=== PATIENT | female | born 1965 | race Caucasian/White ===

== ENCOUNTER 2021-03-03 15:37 | Emergency (ER) | payer BC, SELFPAY ==
[2021-03-03 15:46] VITALS: BP 119/80; PULSE 117; PULSE 80; RESP 16; TEMP 36.3; O2SAT 95; O2SAT 98; BMI 26.6
[2021-03-03 16:25] VITALS: RESP 16
[2021-03-03] MEDS: Haloperidol Lactate 5 MG/ML VIAL IM (16:25)
[2021-03-03] MEDS: LORazepam 2 MG/ML VIAL IM (16:25)
--- NOTE | 2021-03-03 16:40 | ED_ITS ---
HPI - Alcohol General Chief Complaint: ETOH/Substance Use Stated Complaint: ETOH Time Seen by Provider: 03/03/21 16:18 Source: patient Mode of arrival: EMS History of Present Illness HPI narrative: Patient in ETOH intoxicated found her in her driveway shouting making suicidal very agitated when she came in the ER was given Haldol 5 mg and 2 mg Ativan for agitation Related Data Allergies Allergy/AdvReac Type Severity Reaction Status Date / Time ibuprofen Allergy Unknown hives Verified 11/26/19 00:00 latex [Latex] Allergy Unknown RASH Unverified 06/17/20 15:01 naproxen [From Naprosyn] Allergy Unknown HIVES Unverified 06/17/20 15:01 Seafood Allergy Severe CALAMARI-AN Uncoded 06/17/20 15:01 APHYLAXIS Review of Systems Review of Systems: Yes Unobtainable due to mental condition (Intoxicated) [facility] Social History Social History Alcohol intake: current Patient Tobacco Use Status: Tobacco use Unknown Use of substances other than those prescribed or required for medical reasons: Unknown Advance Directives: No Advance Directives Information Provided: Yes Patient : No Physical Exam Vital Signs: Vital Signs: Last Vital Signs Temp 97.4 F 03/03/21 17:25 Pulse 98 03/03/21 17:25 Resp 18 03/03/21 18:44 BP 135/66 03/03/21 17:25 Pulse Ox 92 03/03/21 17:25 Body Mass Index 26.6 Appearance: Alert. Oriented X3. No acute distress. ETOH++ very agitated when arrived Eyes: PERRLA, No Nystagmus ENT: Pharynx normal. Oral Mucosa moist Neck: Normal inspection. Neck supple. CVS: Normal heart rate and rhythm. Pulses normal. Respiratory: No respiratory distress. Equal air entry bilateral, no wheezing/rales/rhonchi Abdomen: Soft and nontender. Bowel sounds are present, no mass palpable, no CVA tenderness Skin: Skin warm and dry. Normal skin color. Normal skin turgor. Extremities: No lower extremity edema. No calf tenderness Neuro: Oriented X 3. No motor deficit. No sensory deficit.No cerebellar signs , cranial nerves II-XII intact MDM - Alcohol MDM Narrative Medical decision making narrative: 0100: Pain alert awake denies any suicidal ideation or depression will be evaluated in the morning by care team Differential Diagnosis Differential diagnosis: Likely alcohol dependence Lab Data Attestation: I reviewed the patient's lab results. Result diagrams: 03/03/21 18:28 03/03/21 18:28 Labs: Lab Results 03/03/21 03/03/21 03/03/21 Range/Units 18:28 18:28 18:28 WBC 5.6 (4.8-10.8) X10*3/uL RBC 4.08 L (4.20-5.50) X10*6/uL Hgb 13.8 (12.0-16.0) g/dl Hct 41.0 (37-47) % MCV 100.5 H (80-98) fL MCH 33.8 H (27.0-33.0) pg MCHC 33.7 (31.0-35.0) g/dl RDW 13.8 (11.0-16.0) % Plt Count 220 (160-400) X10*3/uL MPV 8.8 L (9.4-12.3) fL Immature Gran % (Auto) 0.2 (0.0-0.4) % Neut % (Auto) 59.4 (45-73) % Lymph % (Auto) 30.8 (20-40) % [place] % (Auto) 6.6 (2-11) % Eos % (Auto) 1.6 (0-4) % Baso % (Auto) 1.4 (0-2) % Lymph # (Auto) 1.7 (1.2-4.9) X10*3/uL [place] # (Auto) 0.4 (0.1-1.2) X10*3/uL Eos # (Auto) 0.1 (0.0-0.4) X10*3/uL Baso # (Auto) 0.1 (0.0-0.2) X10*3/uL Abs Immat Gran (auto) 0.01 (0.00-0.03) X10*3/uL Absolute Neuts (auto) 3.3 (2.0-8.3) X10*3/uL Absolute Nucleated RBC 0.000 (0.0-0.012) X10*3/uL Nucleated RBC % (auto) 0.0 (0.0-0.2) /100WBC Sodium 149 H (135-145) mmol/L Potassium 3.9 (3.3-5.1) mmol/L Chloride 110 H (96-108) mmol/L Carbon Dioxide 24 (22-29) mmol/L Anion Gap 19 (12-20) BUN 10 (9-16) mg/dL Creatinine 0.60 (0.5-1.4) mg/dL Estim Creat Clear Calc 108.2 Estimated GFR > 60 Random Glucose 103 (60-115) mg/dL Calcium 8.7 (8.4-10.2) mg/dL Magnesium 2.2 (1.6-2.6) mg/dL Total Bilirubin 0.4 (0.0-1.0) mg/dL Direct Bilirubin 0.2 (0.0-0.5) mg/dL AST 123 H (5-31) U/L ALT 133 H (0-31) U/L Alkaline Phosphatase 85 (39-117) U/L Total Protein 7.0 (6.5-8.0) g/dL Albumin 4.4 (3.5-5.0) g/dL Ethyl Alcohol 387 H* mg/dL Discharge Plan Discharge Clinical Impression: Alcoholic intoxication Qualifiers: Complication of substance-induced condition: uncomplicated Qualified Code(s): F10.920 - Alcohol use, unspecified with intoxication, uncomplicated Depression Qualifiers: Depression Type: major depressive disorder Major depression recurrence: recurrent Active/Remission status: currently active Major depression episode severity: moderate Qualified Code(s): F33.1 - Major depressive disorder, recurrent, moderate
[2021-03-03 16:55] VITALS: BP 152/72; PULSE 104; RESP 14; TEMP 36.6; O2SAT 92
[2021-03-03 17:10] VITALS: BP 149/72; PULSE 106; RESP 20; TEMP 36.4; O2SAT 93
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
[2021-03-03 17:25] VITALS: BP 135/66; PULSE 98; RESP 16; TEMP 36.3; O2SAT 92
[2021-03-03 18:32] LABS: MANUAL DIFF FLAG NO
[2021-03-03 18:33] LABS: Basophils Absolute Auto 0.1 X10*3/uL (0.0-0.2); Basophils Percent Auto 1.4 % (0-2); Eosinophils Absolute Auto 0.1 X10*3/uL (0.0-0.4); Eosinophils Percent Auto 1.6 % (0-4); Hemoglobin 13.8 g/dl (12.0-16.0); Imm Gran Abs Auto 0.01 X10*3/uL (0.00-0.03); Imm Gran Pct Auto 0.2 % (0.0-0.4); Lymphocytes Absolute Auto 1.7 X10*3/uL (1.2-4.9); Lymphocytes Percent Auto 30.8 % (20-40); Mean Corpuscular HGB Conc 33.7 g/dl (31.0-35.0); Mean Corpuscular Hemoglobin 33.8 pg (27.0-33.0); Mean Corpuscular Volume 100.5 fL (80-98); Mean Platelet Volume 8.8 fL (9.4-12.3); Monocytes Absolute Auto 0.4 X10*3/uL (0.1-1.2); Monocytes Percent Auto 6.6 % (2-11); Neutrophils Absolute Auto 3.3 X10*3/uL (2.0-8.3); Neutrophils Percent Auto 59.4 % (45-73); Platelet Count 220 X10*3/uL (160-400); Red Blood Count 4.08 X10*6/uL (4.20-5.50); Red Cell Distribution Width 13.8 % (11.0-16.0); White Blood Count 5.6 X10*3/uL (4.8-10.8)
[2021-03-03 18:44] VITALS: RESP 18
[2021-03-03 18:57] LABS: Ethanol 387 mg/dL
[2021-03-03 19:00] LABS: Alanine Aminotransferase 133 U/L (0-31); Albumin Level 4.4 g/dL (3.5-5.0); Alkaline Phosphatase 85 U/L (39-117); Anion Gap 19 (12-20); Aspartate Amino Transferase 123 U/L (5-31); Bilirubin Direct 0.2 mg/dL (0.0-0.5); Bilirubin Total 0.4 mg/dL (0.0-1.0); Blood Urea Nitrogen 10 mg/dL (9-16); Calcium 8.7 mg/dL (8.4-10.2); Carbon Dioxide 24 mmol/L (22-29); Chloride 110 mmol/L (96-108); Creatinine Clr Calc Pharmacy 108.2; Estimated Glomerular Filt Rate > 60; Glucose Random 103 mg/dL (60-115); Magnesium 2.2 mg/dL (1.6-2.6); Potassium 3.9 mmol/L (3.3-5.1); Sodium 149 mmol/L (135-145)
[2021-03-04] VITALS: RESP 18
[2021-03-04 02:00] VITALS: RESP 16
[2021-03-04 03:20] VITALS: BP 121/70; PULSE 102; RESP 16; O2SAT 94
[2021-03-04 04:00] VITALS: RESP 18
[2021-03-04 08:00] VITALS: BP 148/91; PULSE 88; RESP 17; TEMP 36.6; O2SAT 96
--- NOTE | 2021-03-04 08:06 | PC.NURSE ---
pt a/o x 3 no sob/neelima noted skin pink warm dry speaks in full sentences. pt amb (i) gait steady to bathroom and btb. pt appears slightly tremulous and is requesting med for slight tremors. pt ate 25% of breakfast. pt is concerned about what time she will be leaving today because she has a vet coming to see to her 2 horses at 3pm today she states. paper work to be faxed and called to [facility] [place]. pt denies any si/hi at this time.
--- NOTE | 2021-03-04 08:10 | PC.NURSE ---
pt's hawa mayorga ([phone]) called and is speaking with the pt at this time on [facility] [place].
--- NOTE | 2021-03-04 08:31 | PC.NURSE ---
paperwork fax and called to [facility]. this rn spoke with talia (helena).
--- NOTE | 2021-03-04 08:40 | PC.NURSE ---
tiny miner (care team) is at pt's bedside.
[2021-03-04] MEDS: LORazepam 1 MG TABLET 2 MG PO (09:01)
[2021-03-04 09:04] LABS: Amphetamine Screen Urine Not Detected (Not Detect); Barbiturates, Urine Not Detected (Not Detect); Benzodiazepines Screen Urine Not Detected (Not Detect); Cannabinoid Screen Urine Not Detected (Not Detect); Cocaine Screen Urine Not Detected (Not Detect); Opiate Screen Urine Not Detected (Not Detect); Phencyclidine Screen Urine Not Detected (Not Detect)
--- NOTE | 2021-03-04 09:27 | MHC.CARE ---
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 Pt reports long standing history of alcohol use, Pt reports last evening being intoxicated and not remembering passing out on her lawn or what she has said to the PD. Pt reports periods of problematic alcohol use throughout her life. Pt denies history of substance use specific treatment. Pt reports diagnosis of PTSD. Pt reports she is not on any psychiatric. Pt reports history of therapy for many years however in November 2020 her therapist retired. Pt reports she has not reconnected with a new therapist yet. Pt denies current or history of suicidal ideation, suicidal gestures or attempts. Pt denied history of IPLOC, CSS, Respite or detox admissions. Pt reported she is agreeable to a new service recently offered by [facility]. Pt reports having a supportive partner (Nick) of 11 years who she resides with and her son recently moved home. Pt reports spending her time working, exercising, and spending time with her animals. Pt gave t/w verbal permission to speak with Nick who reported he did not have any safety concerns for Pt to return home. He stated Pt has no history of suicidal ideation, suicidal gestures or attempts. He reported her alcohol use can be very problematic and in the context of his worry is if she fell down intoxicated. He reported he has known the Pt for a very long time and she functional alcoholic and typically does not want treatment for alcohol use . CARE Team followed up with [facility] who reported they will have there [facility] liaison reach out to Pt tomorrow once she is home. Pt provided with [facility] Crisis number, CARE Team contact number and information for Hope donna Rothman. Pt, partner and provider in agreement with plan to discharge home and follow up with [facility].
== END 2021-03-04 09:56 | disposition home or self-care (01) ==
PROVIDERS: Emergency Provider Internal Medicine; PCP Internal Medicine
DX: F10.120 Alcohol abuse with intoxication, uncomplicated (principal); Y90.8 Blood alcohol level of 240 mg/100 ml or more; F33.1 Major depressive disorder, recurrent, moderate; R45.1 Restlessness and agitation; F43.10 Post-traumatic stress disorder, unspecified; Z78.1 Physical restraint status
CPT/HCPCS: 36415; 80048; 80076; 80307; 82077; 83735; 85025; 96372; 99285; J2060

== ENCOUNTER 2023-11-20 11:38 | Outpatient (AMB) | payer BC, SELFPAY ==
--- NOTE | 2023-11-20 11:38 | AM.OFFWIN_ITS ---
Intake Vital Signs 11/20/23 11:43 Height 5 ft 7 in Weight 143 lb BMI 22.4 BP 110/70 Blood Pressure Location Lt brachial Position Sitting Pulse 97 Pulse Source Pulse Oximeter Temp 98.0 F Temp Source Temporal Artery Scan Pulse Oximetry (%) 97 Oxygen Delivery Method Room Air Intake Visit Reasons: EP Cough, Headache, fever [phone] Intake Note: pt is here today for cough headache fever started last Sunday Patient Tobacco Use Status: Tobacco use Unknown Allergies ibuprofen Allergy (Unknown, Verified 11/20/23 11:41) hives latex [Latex] Allergy (Unknown, Verified 11/20/23 11:41) RASH naproxen [From Naprosyn] Allergy (Unknown, Verified 11/20/23 11:41) HIVES Seafood Allergy (Severe, Uncoded 06/17/20 15:01) CALAMARI-ANAPHYLAXIS Medication List - Last Reconciled 11/20/23 by LORENZO Knapp No Known Home Meds Do you need a note to return to daycare/school/sports/work: Yes HPI HPI Comments History of Present Illness Details 58-year-old female presents today compla ining of vomiting times 2 days starting 5 days ago. Then progressed to nasal congestion sore throat ear fullness and mild cough. 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 [facility] Social History Alcohol intake: current Patient Tobacco Use Status: Tobacco use Unknown Review of Systems Const Reports body aches, Reports chills, Reports fatigue, Reports fever(s), Reports headache(s) and Reports weakness ENT Reports headache(s), Reports nasal congestion, Reports nasal discharge, Reports sinus pain, Reports sinus pressure and Reports sore throat Resp Reports chest congestion and Reports cough GI Reports nausea and Reports vomiting Musc Reports myalgias Neuro Reports headache(s) and Reports weakness Endo Reports fatigue Physical Exam Const General: in distress mild HEENT Head: Yes normal to inspection, Yes normocephalic and Yes atraumatic Ears: hearing grossly normal bilaterally, external ears normal and TM's normal bilaterally General nose exam: Normal external nose present Face and sinus: Yes normal facial exam Mouth: Normal oral and palatal mucosa present Teeth and gingiva: dentition normal Throat: Yes posterior oropharynx normal Eyes General: appearance normal, both eyes and all related structures Resp Effort & Inspection: normal respiratory effort Auscultation: clear to auscultation bilaterally Cardio Rate: regular rate Rhythm: regular rhythm Heart sounds: S1 normal heart sound present and S2 normal heart sound present GI Inspection: Yes normal to inspection Palpation (GI): Soft to palpation Auscultation: normal bowel sounds Assessment & Plan Assessment & Plan (1) Vomiting: Code(s): R11.10 - Vomiting, unspecified Plan: Most likely the patient has influenza. I sent the viral culture. It did discuss the timing of Tamiflu and or Paxlovid might be a little too late due to the 5 days of symptoms. She will get some electrolyte drinks to supplement with her hydration. She did receive a work note. Plan See plan Orders: Orders SARS-CoV2/FLU/RSV Today R11.10 - Vomiting, unspecified Coding Level of Care Code Est Pt Level 3 (93555) Diagnoses Vomiting R11.10 Time Spent (min) 20
[2023-11-20 11:43] VITALS: BP 110/70; PULSE 97; TEMP 36.7; O2SAT 97; BMI 22.4
== END 2023-11-20 12:30 | disposition home or self-care (01) ==
PROVIDERS: PCP Internal Medicine; Visit Provider Physician Assistant Medical
DX: R11.10 Vomiting, unspecified (principal)
CPT/HCPCS: 99213

== ENCOUNTER 2023-11-20 14:59 | Outpatient (REF) | payer BC, SELFPAY ==
[2023-11-20 15:59] LABS: Influenza A PCR NEGATIVE (Negative); Influenza B PCR NEGATIVE (Negative); Resp Syncy Virus RNA Qual PCR NEGATIVE (Negative); SARS COV2 PCR INHOUSE NEGATIVE (Negative)
== END 2023-11-20 15:00 | disposition home or self-care (01) ==
LOC: HO.LNP 14:59
PROVIDERS: Visit Provider Physician Assistant Medical
DX: Z11.52 Encounter for screening for COVID-19 (principal); Z20.822 Contact with and (suspected) exposure to COVID-19; R11.10 Vomiting, unspecified
CPT/HCPCS: 0241U

== ENCOUNTER 2023-11-22 14:57 | Emergency (ER) | payer BC, SELFPAY ==
--- NOTE | 2023-11-22 15:50 | PC.NURSE ---
registration states that patient left b/c she was having anxiety. might be in the car.
== END 2023-11-22 17:03 | disposition left against medical advice (07) ==
PROVIDERS: Emergency Provider Emergency Medicine
DX: Z53.21 Procedure and treatment not carried out due to patient leaving prior to being seen by health care provider (principal); M25.512 Pain in left shoulder

== ENCOUNTER 2023-11-23 14:51 | Emergency (ER) | payer BC, SELFPAY ==
--- NOTE | ~2023-11-23 | CT_ITS ---
EXAMINATION: CT CHEST WITH CONTRAST CLINICAL INFORMATION: Mass over left shoulder blade. History of breast cancer. COMPARISON: None available. TECHNIQUE: Multidetector volumetric CT imaging of the chest was obtained after the administration of 80 mL of Omnipaque 350 intravenous contrast without immediate adverse reactions. Axial MIP volume rendering provided. Sagittal and coronal reformatted images were obtained. This CT examination was performed using dose optimization techniques as appropriate, variously including the following: *Automated exposure control *Adjustment of mA and/or kV according to patient size (this includes techniques or standardized protocols for targeted exams where dose is matched to indication/reason for exam; i.e. extremities or head) *Use of iterative reconstruction technique DLP: 230 mGy-cm FINDINGS: FINANCIAL PLANNER: LUNGS: Right apical pleural parenchymal scarring Increased peripheral markings and scarring anterior right upper lobe. These findings are probably related to previous chest wall radiation. Lungs are otherwise clear. MEDIASTINUM: Large 2 x 2 x 3.5 cm right thyroid nodule. Normal no coronary artery calcification. PLEURA: There is no pleural effusion. No pleural mass or thickening. AXILLA: I lateral breast implants. Surgical clips right axilla. No chest wall mass or enlarged axillary lymph nodes. UPPER ABDOMEN: Fatty liver. OSSEOUS STRUCTURES: There is a lipoma measuring 2.5 x 3 cm over the posterior chest just medial to the scapula. There is a 1.5 cm lesion right L1 body. No other bone lesion. CT/CT chest w IV con IMPRESSION: 2 x 3.5 cm left posterior chest lipoma just medial to the left scapula. No other left shoulder mass. 1.5 cm lucent lesion in the right L1 vertebral body. This could represent a benign hemangioma. Comparison with old outside exams recommended. Large right thyroid nodule measuring 2 x 2 x 3.5 cm. Follow-up thyroid ultrasound recommended if this has not already been done. Fleischner guidelines were followed.
--- NOTE | 2023-11-23 15:37 | ED_ITS ---
HPI - General Adult General Chief complaint: Extremity Problem Stated complaint: L Shoulder Lump Pain No Injury Time Seen by Provider: 11/23/23 19:21 Source: patient, RN notes reviewed and old records reviewed Mode of arrival: ambulatory Limitations: no limitations History of Present Illness HPI narrative: 58-year-old female with past medical history significant for remote history of breast cancer with BRCA 2 mutation presents for evaluation of a lump on the left upper back. Patient noticed the area a few weeks ago. She states that it is next to her shoulder blade. The pain is worse with anything that touches the area. She tried to follow-up with her outpatient oncologist at [facility] She also reports a mass to the right side of her neck Patient reports general weakness and night sweats No other complaints or concerns at this time Related Data Home Medications Medication Instructions Recorded Confirmed No Known Home Meds 11/20/23 11/20/23 Allergies Allergy/AdvReac Type Severity Reaction Status Date / Time ibuprofen Allergy Unknown hives Verified 11/20/23 11:41 latex [Latex] Allergy Unknown RASH Verified 11/20/23 11:41 naproxen [From Naprosyn] Allergy Unknown HIVES Verified 11/20/23 11:41 Seafood Allergy Severe CALAMARI-AN Uncoded 06/17/20 15:01 APHYLAXIS Review of Systems 2 Constitutional: Constitutional: Denies body ache(s), Denies chills, Reports fatigue and Denies fever(s) Eyes: Eyes: Denies blurry vision ENT: Reports neck pain Cardiovascular: Cardiovascular: Denies chest pain and Denies dyspnea Respiratory: Respiratory: Denies cough and Denies dyspnea Gastrointestinal: Gastrointestinal: Denies abdominal pain, Denies nausea and Denies vomiting Musculoskeletal: Musculoskeletal: Denies back pain and Reports neck pain Integumentary/Breasts: Comments: Mass to left upper back and right neck Endocrine: Endocrine: Reports fatigue PMFSH Social History Social History Alcohol intake: current Patient Tobacco Use Status: Tobacco use Unknown Advance Directives: No Advance Directives Information Provided: No Physical Exam ED Vital Signs: Vital Signs - 24 hr 11/23/23 15:39 11/23/23 19:22 Temperature 98.7 F 97.8 F Pulse Rate 101 H 94 Respiratory Rate 17 16 Blood Pressure 144/98 H 147/108 H Pulse Oximetry 95 97 Oxygen Delivery Method Room Air Room Air BMI result Body Mass Index 21.9 Const General: healthy appearing, comfortable, no acute distress, alert and awake Nutritional Appearance: well nourished Orientation/consciousness: patient oriented x3 HENMT Head: Yes normocephalic and Yes atraumatic Eyes Eyelids: Yes eyelids normal Conjunctivae: conjunctivae normal Sclerae: sclerae normal Corneas: corneas normal Pupils: Equal, round and reactive pupils present EOM: EOMs intact bilaterally Neck Other: There is a 2 x 2 cm firm, nonmobile mass to the right side of the anterior neck adjacent to the area of the thyroid. No surrounding skin changes such as ecchymosis, erythema or color change. This area is nontender Resp Effort & Inspection: normal respiratory effort, able to speak in complete sentences and not labored Skin Other: Has a 3 x 3 cm nonmobile mass of the left thoracic region just medial to the inferior border of the scapula. Again, no overlying skin changes General skin exam: elasticity normal Neuro General: patient oriented x3 Cranial nerves: Yes Equal, round and reactive pupils present and Yes Bilaterally intact EOM present Cognition (Neuro): normal cognition Extrem Other: Moving all extremities well without any obvious deformities Course Course Course Narrative: RME:?58 yo female w/ pmhx significant for breast cancer in remission presents to the ED for evaluation of mass to left shoulder blade x weeks. Her oncologist at [facility] advised her to come to ED for imaging d/t concern of mets. her PCP has been unable to see her. Additionally she endorses feeling feverish, has had night sweats and decreased appetite. Denies unintentional weight loss. 4 cm mass to left shoulder blade. ttp. considered US however given concern for mets from oncologist, will order CTA labs, imaging ordered Full HPI, ROS and PE to be performed by the primary ED provider. Medications Administered Discontinued Medications Generic Name Dose Route Start Last Admin Trade Name Freq PRN Reason Stop Dose Admin Iohexol 100 ml 11/23/23 19:29 11/23/23 19:30 Iohexol 350 Mg/Ml 100 Ml Infus..Btl IV 11/23/23 19:30 100 ml ONCE ONE Administration Medical Decision Making Medical Decision Making [facility] Narrative: 58-year-old female presents for evaluation of a mass to her left upper back and right neck. She reports a history of a known right thyroid nodule that was followed by ultrasound previously. The patient is very anxious about her diagnosis given her history of cancer. I had a lengthy discussion the patient attempting to get her to stay in the ER but she continues to request to leave against medical advice. The patient understands that her scan could potentially reveal malignancy/metastasis requiring urgent follow-up. She was provided with a disc of her images to bring to her outpatient follow-up appointment with Oncology. The patient's lower without any significant abnormalities. Clinically her left upper back mass is most likely a benign seroma or lipoma. Differential Diagnosis Differential Diagnoses: The differential diagnosis associated with the presentation includes Soft tissue mass Malignancy Tumor Abscess Lipoma Seroma Thyroid nodule Lab Data MDM Lab Attestation statement: I reviewed the patient's lab results. No leukocytosis or anemia. No significant electrolyte abnormalities. 11/23/23 15:58 11/23/23 15:58 Labs: Lab Results 11/23/23 Range/Units 15:58 WBC 8.0 (4.8-10.8) X10*3/uL RBC 4.25 (4.20-5.50) X10*6/uL Hgb 13.9 (12.0-16.0) g/dl Hct 40.2 (37.0-47.0) % MCV 94.6 (80.0-98.0) fL MCH 32.7 (27.0-33.0) pg MCHC 34.6 (31.0-35.0) g/dl RDW 12.8 (11.0-16.0) % Plt Count 196 (160-400) X10*3/uL MPV 9.1 L (9.4-12.3) fL Immature Gran % (Auto) 0.4 (0.0-0.4) % Neut % (Auto) 47.5 (45-73) % Lymph % (Auto) 39.6 (20-40) % [place] % (Auto) 10.0 (2-11) % Eos % (Auto) 1.9 (0-4) % Baso % (Auto) 0.6 (0-2) % Lymph # (Auto) 3.2 (1.2-4.9) X10*3/uL [place] # (Auto) 0.8 (0.1-1.2) X10*3/uL Eos # (Auto) 0.2 (0.0-0.4) X10*3/uL Baso # (Auto) 0.1 (0.0-0.2) X10*3/uL Abs Immat Gran (auto) 0.03 (0.00-0.03) X10*3/uL Absolute Neuts (auto) 3.8 (2.0-8.3) x10*3/uL Absolute Nucleated RBC 0.000 (0.0-0.012) X10*3/uL Nucleated RBC % (auto) 0.0 (0.0-0.2) /100WBC Sodium 142 (135-145) mmol/L Potassium 3.8 (3.3-5.1) mmol/L Chloride 105 (96-108) mmol/L Carbon Dioxide 26 (22-29) mmol/L Anion Gap 15 (12-20) BUN 9 (9-16) mg/dL Creatinine 0.66 (0.5-1.4) mg/dL Estim Creat Clear Calc 92.5 Estimated GFR > 60 Random Glucose 110 (60-115) mg/dL Calcium 9.1 (8.4-10.2) mg/dL Magnesium 1.9 (1.6-2.6) mg/dL Influenza Type A (PCR) NEGATIVE (Negative) Influenza Type B (PCR) NEGATIVE (Negative) RSV RNA Qual (PCR) NEGATIVE (Negative) SARS-CoV-2 RNA (RT-PCR) NEGATIVE (Negative) Radiology Impression Discussion of test interpretation with radiology: I have reviewed the radiologist's reading. (Left thoracic lipoma, right thyroid nodule, vertebral lesion noted.) Discharge Plan Discharge Clinical Impression: Mass of soft tissue Patient Disposition: Left Against Medical Advice Instructions: Soft Tissue Mass (ED) Additional Instructions: You are leaving before your CT scan reports are red. Given your history of cancer this can be concerning for reoccurrence It may just be a simple cyst Return immediately if any new or worsening symptoms Follow-up with your oncologist Prescriptions: No Action No Known Home Meds Stand Alone Forms: Against Medical Advice, Work/School Release Interventions: ED Discharge Assessment Last Done: 11/23/23 19:45 Discharge Date/Time: 11/23/23 20:23
[2023-11-23 15:39] VITALS: BP 144/98; PULSE 101; RESP 17; TEMP 37.1; O2SAT 95; BMI 21.9
[2023-11-23 16:10] LABS: MANUAL DIFF FLAG NO
[2023-11-23 16:12] LABS: Basophils Absolute Auto 0.1 X10*3/uL (0.0-0.2); Basophils Percent Auto 0.6 % (0-2); Eosinophils Absolute Auto 0.2 X10*3/uL (0.0-0.4); Eosinophils Percent Auto 1.9 % (0-4); Hematocrit 40.2 % (37.0-47.0); Hemoglobin 13.9 g/dl (12.0-16.0); Imm Gran Abs Auto 0.03 X10*3/uL (0.00-0.03); Imm Gran Pct Auto 0.4 % (0.0-0.4); Lymphocytes Absolute Auto 3.2 X10*3/uL (1.2-4.9); Lymphocytes Percent Auto 39.6 % (20-40); Mean Corpuscular HGB Conc 34.6 g/dl (31.0-35.0); Mean Corpuscular Hemoglobin 32.7 pg (27.0-33.0); Mean Corpuscular Volume 94.6 fL (80.0-98.0); Mean Platelet Volume 9.1 fL (9.4-12.3); Monocytes Absolute Auto 0.8 X10*3/uL (0.1-1.2); Neutrophils Absolute Auto 3.8 x10*3/uL (2.0-8.3); Neutrophils Percent Auto 47.5 % (45-73); Platelet Count 196 X10*3/uL (160-400); Red Blood Count 4.25 X10*6/uL (4.20-5.50); Red Cell Distribution Width 12.8 % (11.0-16.0)
[2023-11-23 16:33] LABS: Anion Gap 15 (12-20); Blood Urea Nitrogen 9 mg/dL (9-16); Calcium 9.1 mg/dL (8.4-10.2); Carbon Dioxide 26 mmol/L (22-29); Chloride 105 mmol/L (96-108); Creatinine Clr Calc Pharmacy 92.5; Estimated Glomerular Filt Rate > 60; Glucose Random 110 mg/dL (60-115); Magnesium 1.9 mg/dL (1.6-2.6); Potassium 3.8 mmol/L (3.3-5.1); Sodium 142 mmol/L (135-145)
[2023-11-23 16:47] LABS: Influenza A PCR NEGATIVE (Negative); Influenza B PCR NEGATIVE (Negative); Resp Syncy Virus RNA Qual PCR NEGATIVE (Negative); SARS COV2 PCR INHOUSE NEGATIVE (Negative)
[2023-11-23 19:22] VITALS: BP 147/108; PULSE 94; RESP 16; TEMP 36.6; O2SAT 97
--- NOTE | 2023-11-23 19:24 | PC.NURSE ---
Pt has been struggling to remain in the room. Per was here and left without completing treatment yesterday d/t anxiert. Was willing to have IV placed for CT alone then insisted that it be removed and wants to leave before results are available. Asked to remain and wait for provider.
[2023-11-23] MEDS: iohexoL 350 MG/ML 100 ML INFUS..BTL IV (19:30)
== END 2023-11-23 20:23 | disposition left against medical advice (07) ==
PROVIDERS: Physician Assistant Medical; Emergency Provider Emergency Medicine; PCP Internal Medicine
DX: R22.2 Localized swelling, mass and lump, trunk (principal); Z85.3 Personal history of malignant neoplasm of breast; Z11.52 Encounter for screening for COVID-19; Z20.828 Contact with and (suspected) exposure to other viral communicable diseases
CPT/HCPCS: 0241U; 71260; 80048; 83735; 85025; 99283; 99284; Q9967

== ENCOUNTER 2024-02-19 08:11 | Outpatient (REF) | payer BC, SELFPAY | END 2024-02-19 08:12 | disposition home or self-care (01) | LOC: HO.BBR 08:11 | PROVIDERS: Visit Provider Internal Medicine | DX: Z13.89 Encounter for screening for other disorder (principal) ==

== ENCOUNTER 2024-04-10 11:18 | Outpatient (REF) | payer BC, SELFPAY | END 2024-04-10 11:19 | disposition home or self-care (01) | LOC: HO.BBR 11:18 | PROVIDERS: Visit Provider Internal Medicine | DX: Z13.89 Encounter for screening for other disorder (principal) ==

== ENCOUNTER 2024-05-01 10:57 | Outpatient (REF) | payer BC, SELFPAY | END 2024-05-01 10:58 | disposition home or self-care (01) | LOC: HO.BBR 10:57 | PROVIDERS: PCP Internal Medicine; Visit Provider Internal Medicine | DX: Z13.89 Encounter for screening for other disorder (principal) ==

== ENCOUNTER 2024-05-15 15:37 | Outpatient (AMB) | payer BC, SELFPAY ==
--- NOTE | 2024-05-15 15:39 | A.OFFPC_ITS ---
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 Is last menstrual period known: No Post menopausal: No Patient : No Allergies Seasonal Allergies Allergy (Mild, Verified 05/15/24 15:45) Itchy Eyes latex [Latex] Allergy (Unknown, Verified 11/20/23 11:41) RASH naproxen [From Naprosyn] Allergy (Unknown, Verified 11/20/23 11:41) HIVES Tobacco use date assessed: 05/15/24 Dental Screening Dental Screen Date: 05/15/24 Did you have a dental visit in the last 12 months?: Yes Did you have a dental problem in the last 6 months where you did not have access to dental care?: No Was dental information given to patient?: Patient has dentist HPI HPI Comments History of Present Illness Details This is a 59-year-old female with a past medical history of BRCA2 mutation, right breast cancer, thyroid nodule, hemochromatosis, idiopathic anaphylaxis, environmental allergies, endometriosis and vitamin-D deficiency presenting to establish care. BRCA2 mutation, right breast cancer-diagnosed in 2000. Status post right mastectomy. Followed by breast surgeon at [facility]. No known recurrence. Status post bilateral oophorectomy with removal of fallopian tubes. Thyroid nodule of the right lobe- 4.3 cm-biopsied by Dr. Pereira at [facility]. Benign. She has a follow up in 11/20/2024. She had a lipoma removed from the back of her left shoulder. She would like a referral to Dermatology for a skin exam. No personal history of skin cancer. Hemochromatosis is followed by her grinder carbon plant at [facility]. She has therapeutic phlebotomy every 3 weeks. Idiopathic anaphylaxis she has had 2 episodes over the course of her life. She saw an graphic design intern. She takes Kristi for allergy symptoms. She does not have an epinephrine device, and she requests a prescription for Neffy. She endorses depression and anxiety. 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 Predominantly anxieties bothering her. She is having difficulty sleeping. She tried Lexapro in the past which caused fatigue. She took Wellbutrin for depression in the past. It helped. She has used Ativan as needed as well which was effective. She has done a lot of talk therapy, and she is not interested in referral to behavioral health at this time. She has never had a colonoscopy, and she accepts referral for this. Needs referral to OBGYN for an annual exam. ROS: Constitutional: No unexplained weight loss, fever, chills, Respiratory: No shortness of breath Cardiovascular: No chest pain Gastrointestinal: No anorexia, nausea, vomiting or diarrhea. No abdominal pain or blood in stool. Psychiatric: No SI/HI. Physical exam: Constitutional: Alert, in no distress. Head: Normocephalic. Eyes: Pupils are equal, round and reactive to light. Extraocular muscles intact. Neck: Supple, Full range of motion. No lymphadenopathy. Palpable right thyroid nodule. Respiratory: Clear to auscultation. Cardiovascular: S1 S2 regular. No murmurs. Extremities: Warm and well perfused. No clubbing, cyanosis or edema. Psychiatric: Normal mood and affect [facility] Medical History (Updated 05/15/24 @ 17:36 by LORENZO Dimas) Vitamin D deficiency Idiopathic anaphylaxis History of lipoma Hemochromatosis BRCA2 gene mutation positive History of right breast cancer Anxiety and depression Breast cancer Surgical History (Updated 05/15/24 @ 17:27 by LORENZO Dimas) History of History of reconstruction of right breast History of bilateral oophorectomy History of right mastectomy Family History (Updated 05/15/24 @ 16:26 by LORENZO Dimas) Maternal Grandfather FH: mental illness Paternal Grandmother Diabetes Mother Cancer Sister BRCA gene mutation positive Family/Other Thyroid cancer Renal cancer Social History Housing: House Alcohol intake: current Patient Tobacco Use Status: Never used Tobacco e-Cigarette/Vaping Use: Never Used Second Hand Smoke Exposure: No service: No Current occupational status: unemployed Current occupational exposures/hazards: No Cognitive needs: No Hearing needs: No Vision needs: Yes Questionnaire PHQ-9 Over the last 2 weeks, how often have you been bothered by any of the following problems? 1. Little interest or pleasure in doing things: several days 2. Feeling down, depressed, or hopeless: more than half the days 3. Trouble falling or staying asleep, or sleeping too much: nearly every day 4. Feeling tired or having little energy: more than half the days 5. Poor appetite or overeating: more than half the days 6. Feeling bad about yourself - or that you are a failure or have let yourself or your family down: more than half the days 7. Trouble concentrating on things, such as reading the newspaper or watching television: more than half the days 8. Moving or speaking so slowly that other people could have noticed. Or the opposite - being so fidgety or restless that you have been moving around a lot more than usual: not at all 9. Thoughts that you would be better off or of hurting yourself in some way: not at all Total score: 14 Depression Screening Interpretation: Positive Depression Screening Follow-up: New Medication prescribed Depression Screening Done: Yes 38514 - PHQ-9 Billing: Yes Source: Developed by Drs. Josef Rivera, Lainey Lala, Josh Zamarripa and colleagues, with an educational esa from [employer]. Thrive Questionnaire Date Thrive assessed: 05/15/24 I am a: Patient What is your living situation today?: I have a steady place to live Within the past 12 months, did the food you bought not last and you didn't have the money to get more?: Never true Within the past 12 months, did you worry whether your food would run out before you got money to buy more?: Never true Do you have trouble paying for medicines?: No Do you have trouble getting transportation to medical appointments?: No Do you have trouble paying your heating and electricity bill?: No Do you have trouble taking care of your child, family member or friend?: No Do you have trouble with day-to-day activities such as bathing, preparing meals, shopping, managing finances, etc.?: No Are you currently unemployed and looking for a job?: Yes Are you interested in more education?: No Please select the resources that you would like help with: None Currently or been in a relationship where the following occur: No concerns reported THRIVE Score: 0 AUDIT C Alcohol Use Questionnaire (AUDIT-C) 1. How often do you have a drink containing alcohol?: Never Total Score: 0 Score Reviewed/Action Taken: Yes STEPHANIE-7 AMB Questionnaire STEPHANIE-7 Date STEPHANIE - 7 assessed: 05/15/24 Feeling nervous, anxious, or on edge: 3 = Nearly every day Not being able to stop or control worryin = Nearly every day Worrying too much about different things: 3 = Nearly every day Trouble relaxin = More than half the days Being so restless that it is hard to sit still: 2 = More than half the days Becoming easily annoyed or irritable: 2 = More than half the days Feeling afraid as if something awful might happen: 3 = Nearly every day Total STEPHANIE-7 score (0-4 normal; 5-9 mild; 10-14 moderate; 15-21 severe): 18 Source: Developed by Drs. Josef Rivera, Lainey Lala, Josh Zamarripa and colleagues, with an educational esa from [employer]. STEPHANIE-7 Assessment Billing STEPHANIE-7 Assessment Tool: STEPHANIE-7 Assessment 49469 Physical exam (Primary Care) Vital Signs: Last Vital Signs Temp 97.6 F 05/15/24 15:50 Pulse 66 05/15/24 15:50 Resp 16 05/15/24 15:50 BP 118/70 05/15/24 15:50 Pulse Ox 99 05/15/24 15:50 Oxygen Delivery Method Room Air 05/15/24 15:50 BMI result Body Mass Index 22.5 Tobacco/Smoking Status: Tobacco use Status Tobacco use date assessed 05/15/24 05/15/24 15:50 Patient Tobacco Use Status Never used Tobacco 05/15/24 15:50 e-Cigarette/Vaping Use Never Used 05/15/24 15:50 PHQ-9: PHQ-9 Score PHQ-9: Total score 14 05/15/24 16:11 Depression Screening Interpretation: Positive Depression Screening Follow-up: New Medication prescribed Thrive Assessment: Date of Thrive Assessment Date Thrive assessed 05/15/24 05/15/24 16:05 Currently or been in a relationship where the following occur: No concerns reported Assessment and Plan Assessment & Plan (1) Anxiety and depression: Code(s): F41.9 - Anxiety disorder, unspecified; F32.A - Depression, unspecified (2) History of right breast cancer: Code(s): Z85.3 - Personal history of malignant neoplasm of breast (3) BRCA2 gene mutation positive: Code(s): Z15.01 - Genetic susceptibility to malignant neoplasm of breast; Z15.09 - Genetic susceptibility to other malignant neoplasm (4) Hemochromatosis: Code(s): E83.119 - Hemochromatosis, unspecified Qualifiers: Hemochromatosis type: hereditary Qualified Code(s): E83.110 - Hereditary hemochromatosis (5) Idiopathic anaphylaxis: Code(s): T78.2XXA - Anaphylactic shock, unspecified, initial encounter Qualifiers: Encounter type: subsequent encounter Qualified Code(s): T78.2XXD - Anaphylactic shock, unspecified, subsequent encounter (6) Vitamin D deficiency: Code(s): E55.9 - Vitamin D deficiency, unspecified Plan She will have fasting blood work completed. She will continue routine follow up with her specialists. Refer to dermatology, OBGYN and for colonoscopy. We will need to check to see if the nasal epinephrine device is available yet at the pharmacy since this was just approved. If not I will send her an EpiPen. The last episode occurred many years ago. If she has another episode I would recommend follow up with Allergy and immunology for further evaluation. Declines referral to behavioral health. Trial of fluoxetine. Side effects, administration and black box warning reviewed. Prescribed Ativan to use as needed nightly for anxiety. Patient advised it is a controlled substance which is habit forming. She is advised not to drive, operate heavy machinery or drink alcohol with this medication. Follow up in 6 weeks for medication check. Orders: Orders Comprehensive Met. Panel Today E55.9 - Vitamin D deficiency, unspecified, Z13.6 - Encounter for screening for cardiovascular disorders Vitamin D 1,25 dihydroxy Today E55.9 - Vitamin D deficiency, unspecified, Z13.6 - Encounter for screening for cardiovascular disorders Lipid Panel Today E55.9 - Vitamin D deficiency, unspecified, Z13.6 - Encounter for screening for cardiovascular disorders Referrals Dermatology Referral Z12.83 - Encounter for screening for malignant neoplasm of skin Open Access Screening Colonoscopy Referral Z12.11 - Encounter for screening for malignant neoplasm of colon, Z12.12 - Encounter for screening for malignant neoplasm of rectum METHODS ENGINEER Referral Z01.419 - Encounter for gynecological examination (general) (routine) without abnormal findings Medications: New fluoxetine Take 1/2 tab po once daily for the first week. 20 mg PO DAILY 30 tabs 1RF lorazepam 0.5 mg PO BEDTIME PRN 20 tabs 0RF anxiety Coding Level of Care Code New Pt Level 4 (06472) Complex EM visit Add On G2211 Diagnoses Anxiety and depression F41.9; F32.A History of right breast cancer Z85.3 BRCA2 gene mutation positive Z15.01; Z15.09 Hereditary hemochromatosis E83.110 Hemochromatosis type: hereditary Idiopathic anaphylaxis, subsequent encounter T78.2XXD Encounter type: subsequent encounter Vitamin D deficiency E55.9 Additional Codes STEPHANIE-7 Assessment Billing - STEPHANIE-7 Assessment Tool: STEPHANIE-7 Assessment [id number] ([id number])
[2024-05-15 15:50] VITALS: BP 118/70; PULSE 66; RESP 16; TEMP 36.4; O2SAT 99; BMI 22.5
== END 2024-05-15 16:48 | disposition home or self-care (01) ==
PROVIDERS: PCP Physician Assistant Medical; Visit Provider Physician Assistant Medical
DX: F41.9 Anxiety disorder, unspecified (principal); F32.A Depression, unspecified; Z85.3 Personal history of malignant neoplasm of breast; E83.110 Hereditary hemochromatosis; Z15.01 Genetic susceptibility to malignant neoplasm of breast; Z15.09 Genetic susceptibility to other malignant neoplasm; T78.2XXD Anaphylactic shock, unspecified, subsequent encounter; E55.9 Vitamin D deficiency, unspecified
CPT/HCPCS: 96127; 99204

== ENCOUNTER 2024-06-03 12:12 | Outpatient (REF) | payer BC, SELFPAY | END 2024-06-03 12:13 | disposition home or self-care (01) | LOC: HO.BBR 12:12 | PROVIDERS: PCP Physician Assistant Medical; Visit Provider Internal Medicine | DX: Z13.89 Encounter for screening for other disorder (principal) ==

== ENCOUNTER 2024-06-06 09:11 | Outpatient (REF) | payer BC, SELFPAY ==
[2024-06-06 14:03] LABS: Alanine Aminotransferase 287 U/L (0-31); Albumin Level 4.3 g/dL (3.5-5.0); Alkaline Phosphatase 75 U/L (39-117); Anion Gap 13 (12-20); Aspartate Amino Transferase 238 U/L (5-31); Bilirubin Total 0.7 mg/dL (0.0-1.0); Blood Urea Nitrogen 9 mg/dL (9-16); Calcium 9.4 mg/dL (8.4-10.2); Carbon Dioxide 25 mmol/L (22-29); Chloride 102 mmol/L (96-108); Cholesterol 216 mg/dL (<200); Estimated Glomerular Filt Rate > 60; Glucose Random 102 mg/dL (60-115); HDL Cholesterol 97 mg/dL (>40); LDL Cholesterol Calculated 110 mg/dL (<100); Potassium 4.2 mmol/L (3.3-5.1); Sodium 136 mmol/L (135-145); Total Protein 7.2 g/dL (6.5-8.0); Triglycerides 45 mg/dL (<150)
[2024-06-06 16:21] LABS: Hematocrit 35.7 % (37.0-47.0); Mean Corpuscular HGB Conc 33.6 g/dl (31.0-35.0); Mean Corpuscular Hemoglobin 32.8 pg (27.0-33.0); Mean Corpuscular Volume 97.5 fL (80.0-98.0); Mean Platelet Volume 10.7 fL (9.4-12.3); Platelet Count 176 X10*3/uL (160-400); Red Blood Count 3.66 X10*6/uL (4.20-5.50); Red Cell Distribution Width 12.8 % (11.0-16.0); White Blood Count 4.6 X10*3/uL (4.8-10.8)
[2024-06-12 12:58] LABS: VITAMIN D (1,25 OH) D3 30 pg/mL; Vit D (1,25-Dihydroxy) Total 30 pg/mL (18-72); Vitamin D (1,25 OH) D2 <8 pg/mL
== END 2024-06-06 09:12 | disposition home or self-care (01) ==
LOC: HO.HMGCLDS 09:11
PROVIDERS: PCP Physician Assistant Medical; Referring Provider Internal Medicine; Visit Provider Physician Assistant Medical
DX: Z13.6 Encounter for screening for cardiovascular disorders (principal); E55.9 Vitamin D deficiency, unspecified
CPT/HCPCS: 36415; 80053; 80061; 82652; 85027

== ENCOUNTER 2024-06-26 12:08 | Outpatient (REF) | payer BC, SELFPAY | END 2024-06-26 12:09 | disposition home or self-care (01) | LOC: HO.BBR 12:08 | PROVIDERS: PCP Physician Assistant Medical; Visit Provider Internal Medicine | DX: Z13.89 Encounter for screening for other disorder (principal) ==

== ENCOUNTER 2024-07-07 11:38 | Outpatient (AMB) | payer BC, SELFPAY ==
--- NOTE | 2024-07-07 11:47 | MHC.PC.OV ---
Vital Signs 07/07/24 11:50 Height 5 ft 6 in Weight 136 lb 8 oz BMI 22.0 BP 110/60 Blood Pressure Location Lt brachial Position Sitting Respiration 14 Pulse 57 Pulse Source Pulse Oximeter Temp 98.2 F Temp Source Oral Pulse Oximetry (%) 97 Oxygen Delivery Method Room Air Intake Visit Reasons: med check anxiety Intake Note: medf/u for anxiety and depression Allergies Seasonal Allergies Allergy (Mild, Verified 07/07/24 11:49) Itchy Eyes latex [Latex] Allergy (Unknown, Verified 07/07/24 11:49) RASH naproxen [From Naprosyn] Allergy (Unknown, Verified 07/07/24 11:49) HIVES Tobacco use date assessed: 05/15/24 Dental Screening Dental Screen Date: 05/15/24 HPI HPI Comments History of Present Illness Details This is a 59-year-old female with a past medical history of BRCA2 mutation, right breast cancer, thyroid nodule, hemochromatosis, idiopathic anaphylaxis, environmental allergies, endometriosis and vitamin-D deficiency presenting to establish care. BRCA2 mutation, right breast cancer-diagnosed in 2000. Status post right mastectomy. Follow[place] [facility] No known recurrence. Status post bilateral oophorectomy with removal of fallopian tubes. Breast MRI scheduled in August for screening and patient is to alternate with mammogram every 6 months. Thyroid nodule of the right lobe- 4.3 cm-biops[place] Dr. Pereira [place] [facility] Benign. She has a follow up in 11/20/2024. She had a lipoma removed from the back of her left shoulder. She saw [facility], and had BCC removed from the left side of her nose. She has another BCC and has the appointment scheduled to remove it. She has a couple spots on her face she will also have them check. Hemochromatosis is followed by her typewriter repairer at [facility], Dr. Waters. She has therapeutic phlebotomy every 3 weeks. Recent LFTs were elevated. Patient reported a history of this with hemochromatosis. Denies abdominal pain, nausea, vomiting, jaundice. No alcohol abuse. We discussed depression and anxiety at her last visit. 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 She told me she'd tried Lexapro in the past which caused fatigue. She took Wellbutrin for depression in the past. It helped. She has done a lot of talk therapy, and she is not interested in referral to behavioral health at this time. She started Fluoxetine and takes 20 mg daily. It is helping with anxiety, but she still has some sleep dysfunction and feels anxious. Patient is . She has children. Tawana is supportive of her. Reports in the past she was given Gabapentin. She took the Lorazepam I'd prescribed. She is out of it. Her fasting glucose level was mildly elevated. Her maternal GM was a type II diabetic. Patient's mother at age 42 of cancer. She has not heard about the colonoscopy referral yet. I sent a follow up message about this to referrals. She has an appointment scheduled for for annual with gynecology. Patient administered seasonal influenza vaccine today. ROS: Constitutional: No unexplained weight loss, fever, chills, Respiratory: No shortness of breath Cardiovascular: No chest pain Gastrointestinal: No anorexia, nausea, vomiting or diarrhea. No abdominal pain or blood in stool. Psychiatric: No SI/HI. Physical exam: Constitutional: Alert, in no distress. Head: Normocephalic. Eyes: Pupils are equal, round and reactive to light. Extraocular muscles intact. Neck: Supple, Full range of motion. No lymphadenopathy. Palpable right thyroid nodule. Respiratory: Clear to auscultation. Cardiovascular: S1 S2 regular. No murmurs. Abdomen: soft, nontender, nondistended, no organomegaly or masses Extremities: Warm and well perfused. No clubbing, cyanosis or edema. Psychiatric: Normal mood and affect [facility] Medical History (Updated 07/07/24 @ 12:48 by LORENZO Dimas) BCC (basal cell carcinoma of skin) IFG (impaired fasting glucose) Vitamin D deficiency Idiopathic anaphylaxis History of lipoma Hemochromatosis BRCA2 gene mutation positive History of right breast cancer Anxiety and depression Breast cancer Surgical History (Updated 05/15/24 @ 17:27 by LORENZO Dimas) History of History of reconstruction of right breast History of bilateral oophorectomy History of right mastectomy Family History (Updated 05/15/24 @ 16:26 by LORENZO Dimas) Maternal Grandfather FH: mental illness Paternal Grandmother Diabetes Mother Cancer Sister BRCA gene mutation positive Family/Other Thyroid cancer Renal cancer Social History Housing: House Alcohol intake: current Patient Tobacco Use Status: Never used Tobacco e-Cigarette/Vaping Use: Never Used Second Hand Smoke Exposure: No service: No Current occupational status: unemployed Current occupational exposures/hazards: No Cognitive needs: No Hearing needs: No Vision needs: Yes Questionnaire PHQ-9 Over the last 2 weeks, how often have you been bothered by any of the following problems? 1. Little interest or pleasure in doing things: several days 2. Feeling down, depressed, or hopeless: several days 3. Trouble falling or staying asleep, or sleeping too much: nearly every day 4. Feeling tired or having little energy: several days 5. Poor appetite or overeating: several days 6. Feeling bad about yourself - or that you are a failure or have let yourself or your family down: several days 7. Trouble concentrating on things, such as reading the newspaper or watching television: several days 8. Moving or speaking so slowly that other people could have noticed. Or the opposite - being so fidgety or restless that you have been moving around a lot more than usual: not at all 9. Thoughts that you would be better off or of hurting yourself in some way: not at all Total score: 9 Depression Screening Interpretation: Positive Depression Screening Done: Yes 20273 - PHQ-9 Billing: Yes Source: Developed by Drs. Josef Rivera, Lainey Lala, Josh Zamarripa and colleagues, with an educational esa from [employer]. Thrive Questionnaire Date Thrive assessed: 05/15/24 AUDIT C Alcohol Use Questionnaire (AUDIT-C) 2. How many drinks containing alcohol do you have on a typical day when you are drinking?: 1 or 2 3. How often do you have six or more drinks on one occasion?: Never Total Score: 0 STEPHANIE-7 AMB Questionnaire STEPHANIE-7 Date STEPHANIE - 7 assessed: 07/07/24 Feeling nervous, anxious, or on edge: 3 = Nearly every day Not being able to stop or control worryin = More than half the days Worrying too much about different things: 2 = More than half the days Trouble relaxin = More than half the days Being so restless that it is hard to sit still: 2 = More than half the days Becoming easily annoyed or irritable: 0 = Not at all Feeling afraid as if something awful might happen: 2 = More than half the days Total STEPHANIE-7 score (0-4 normal; 5-9 mild; 10-14 moderate; 15-21 severe): 13 Source: Developed by Drs. Josef Rivera, Lainey Lala, Josh Zamarripa and colleagues, with an educational esa from [employer]. STEPHANIE-7 Assessment Billing STEPHANIE-7 Assessment Tool: STEPHANIE-7 Assessment 33272 Physical exam (Primary Care) Vital Signs: Last Vital Signs Temp 98.2 F 07/07/24 11:50 Pulse 57 07/07/24 11:50 Resp 14 07/07/24 11:50 BP 110/60 07/07/24 11:50 Pulse Ox 97 07/07/24 11:50 Oxygen Delivery Method Room Air 07/07/24 11:50 BMI result Body Mass Index 22.0 Tobacco/Smoking Status: Tobacco use Status Tobacco use date assessed 05/15/24 07/07/24 11:53 Patient Tobacco Use Status Never used Tobacco 07/07/24 11:53 e-Cigarette/Vaping Use Never Used 07/07/24 11:53 PHQ-9: PHQ-9 Score PHQ-9: Total score 9 07/07/24 12:32 Depression Screening Interpretation: Positive Thrive Assessment: Date of Thrive Assessment Date Thrive assessed 05/15/24 07/07/24 11:53 Office Procedures Flu Questionnaire Does the patient have a severe egg allergy?: No Does the patient have severe life threatening allergies?: No Does the patient have a fever or illness today?: No Has the patient ever had Guillain-[place] Syndrome?: No Has the patient ever had any past reaction to a flu shot?: No Immunizations Fluarix Triv [id number] (PF) 45 mcg (15 mcg x 3)/0.5 mL IM syringe Performing Provider: LORENZO Dimas [place] [facility] [place] Administered by: HEMAL Jacinto on 07/07/24 12:35 Dose Route Admin Location Dispensed Lot Number Expiration Date [facility] [employer] Att[employer] 0.5 mL IM Left Deltoid 0.5 mL [id number] 03/30/25 51991-045-41 [employer] VIS Given Date VIS Provided VIS Publication Date 07/07/24 Single Vaccine 21 Eligibility Eligibility Date Funding Source Not [facility] Eligible 07/07/24 Private Coding Level of Care Code Est Pt Level 4 (33168) Complex EM visit Add On G2211 Diagnoses IFG (impaired fasting glucose) R73.01 History of right breast cancer Z85.3 BRCA2 gene mutation positive Z15.01; Z15.09 Anxiety and depression F41.9; F32.A Hereditary hemochromatosis E83.110 Hemochromatosis type: hereditary Additional Codes STEPHANIE-7 Assessment Billing - STEPHANIE-7 Assessment Tool: STEPHANIE-7 Assessment [id number] ([id number]) Assessment & Plan Assessment & Plan (1) IFG (impaired fasting glucose): Code(s): R73.01 - Impaired fasting glucose Category: Medical Plan: Check hemoglobin a1c. (2) History of right breast cancer: Code(s): Z85.3 - Personal history of malignant neoplasm of breast Category: Medical Plan: [place] [facility] She has a breast MRI for screening scheduled next month. (3) BRCA2 gene mutation positive: Code(s): Z15.01 - Genetic susceptibility to malignant neoplasm of breast; Z15.09 - Genetic susceptibility to other malignant neoplasm Category: Medical (4) Anxiety and depression: Code(s): F41.9 - Anxiety disorder, unspecified; F32.A - Depression, unspecified Category: Medical Plan: Increase fluoxetine to 30 mg daily. Trial of buspirone 5 mg twice daily to target anxiety symptoms. Side effects, black box warning and administration of medications reviewed. (5) Hemochromatosis: Code(s): E83.119 - Hemochromatosis, unspecified Category: Medical Qualifiers: Hemochromatosis type: hereditary Qualified Code(s): E83.110 - Hereditary hemochromatosis Plan: The patient has therapeutic phlebotomy every 3 weeks. She has a follow up scheduled with hematology at [facility] Recheck CBC and LFTs today. Check ferritin and iron profile. Discussed ordering liver ultrasound if LFTs remain elevated. Patient agrees. Plan Follow up in 6 weeks for medication review. Orders: Orders Complete Blood Count Auto Diff Today E83.110 - Hereditary hemochromatosis IRON PROFILE Today E83.110 - Hereditary hemochromatosis Liver Panel Today R79.89 - Other specified abnormal findings of blood chemistry Ferritin Today E83.110 - Hereditary hemochromatosis Influenza [id number] Immunization Today Z23 - Encounter for immunization Medications: New buspirone 5 mg PO BID 60 tabs 0RF fluoxetine 10 mg PO DAILY 90 caps 1RF Changed From fluoxetine Start this prescription once you finish the prescription for fluoxetine 10 mg daily. 20 mg PO DAILY 30 caps 1RF To fluoxetine Take with Fluoxetine 10 mg daily for a total daily dose of 30 mg. 20 mg PO DAILY 90 caps 1RF Discontinued lorazepam Discontinued Reason: Duplicate 0.5 mg PO BEDTIME PRN 20 tabs 0RF anxiety
[2024-07-07 11:50] VITALS: BP 110/60; PULSE 57; RESP 14; TEMP 36.8; O2SAT 97; BMI 22.0
== END 2024-07-07 12:35 | disposition home or self-care (01) ==
PROVIDERS: PCP Physician Assistant Medical; Visit Provider Physician Assistant Medical
DX: R73.01 Impaired fasting glucose (principal); Z85.3 Personal history of malignant neoplasm of breast; E83.110 Hereditary hemochromatosis; Z15.01 Genetic susceptibility to malignant neoplasm of breast; Z15.09 Genetic susceptibility to other malignant neoplasm; F41.9 Anxiety disorder, unspecified; F32.A Depression, unspecified; Z23 Encounter for immunization

== ENCOUNTER → 2024-07-07 11:38 | Outpatient (BNVA) | payer BC, SELFPAY | PROVIDERS: PCP Physician Assistant Medical; Visit Provider Physician Assistant Medical | DX: R73.01 Impaired fasting glucose (principal); F41.9 Anxiety disorder, unspecified; F32.A Depression, unspecified; E83.110 Hereditary hemochromatosis; Z85.3 Personal history of malignant neoplasm of breast; Z15.01 Genetic susceptibility to malignant neoplasm of breast; Z79.899 Other long term (current) drug therapy; Z23 Encounter for immunization | CPT/HCPCS: 90471; 90656; 96127 ==

== ENCOUNTER 2024-07-07 12:39 | Outpatient (REF) | payer BC, SELFPAY ==
[2024-07-07 14:10] LABS: MANUAL DIFF FLAG NO
[2024-07-07 14:15] LABS: Basophils Absolute Auto 0.1 X10*3/uL (0.0-0.2); Basophils Percent Auto 1.3 % (0-2); Eosinophils Absolute Auto 0.2 X10*3/uL (0.0-0.4); Eosinophils Percent Auto 2.4 % (0-4); Imm Gran Abs Auto 0.02 X10*3/uL (0.00-0.03); Imm Gran Pct Auto 0.3 % (0.0-0.4); Lymphocytes Absolute Auto 1.7 X10*3/uL (1.2-4.9); Lymphocytes Percent Auto 25.6 % (20-40); Mean Corpuscular HGB Conc 34.2 g/dl (31.0-35.0); Mean Corpuscular Hemoglobin 32.7 pg (27.0-33.0); Mean Corpuscular Volume 95.7 fL (80.0-98.0); Mean Platelet Volume 9.8 fL (9.4-12.3); Monocytes Absolute Auto 0.6 X10*3/uL (0.1-1.2); Monocytes Percent Auto 9.1 % (2-11); Neutrophils Absolute Auto 4.1 x10*3/uL (2.0-8.3); Neutrophils Percent Auto 61.3 % (45-73); Platelet Count 320 X10*3/uL (160-400); Red Blood Count 3.97 X10*6/uL (4.20-5.50); Red Cell Distribution Width 12.6 % (11.0-16.0); White Blood Count 6.7 X10*3/uL (4.8-10.8)
[2024-07-07 14:27] LABS: Estimated Average Glucose 88 mg/dL; Hemoglobin A1C 95.2075 umol/L; Hemoglobin A1c % 4.7 % (<6.0); Total Hemoglobin (HGBA1C) 3368.2346 umol/L
[2024-07-07 14:33] LABS: Alanine Aminotransferase 17 U/L (0-31); Albumin Level 4.5 g/dL (3.5-5.0); Alkaline Phosphatase 56 U/L (39-117); Aspartate Amino Transferase 21 U/L (5-31); Bilirubin Direct 0.2 mg/dL (0.0-0.5); Bilirubin Total 0.5 mg/dL (0.0-1.0); Iron 109 mcg/dL (30-160); Percent Iron Saturation 43 % (15-50); Total Iron Binding Capacity 253 mcg/dL (228-428); Total Protein 7.5 g/dL (6.5-8.0); Unsaturated Iron Binding 144 ug/dL
[2024-07-07 14:48] LABS: Ferritin 149 ng/mL (10-250)
== END 2024-07-07 12:40 | disposition home or self-care (01) ==
LOC: HO.WFDLDS 12:39
PROVIDERS: Visit Provider Physician Assistant Medical
DX: R73.01 Impaired fasting glucose (principal); F41.9 Anxiety disorder, unspecified; F32.A Depression, unspecified; E83.110 Hereditary hemochromatosis; R79.89 Other specified abnormal findings of blood chemistry; Z79.899 Other long term (current) drug therapy; Z85.3 Personal history of malignant neoplasm of breast; Z15.01 Genetic susceptibility to malignant neoplasm of breast; Z15.09 Genetic susceptibility to other malignant neoplasm
CPT/HCPCS: 36415; 80076; 82728; 83036; 83540; 85025; 96127

== ENCOUNTER 2024-07-17 12:12 | Outpatient (REF) | payer BC, SELFPAY | END 2024-07-17 12:13 | disposition home or self-care (01) | LOC: HO.BBR 12:12 | PROVIDERS: PCP Physician Assistant Medical; Visit Provider Internal Medicine | DX: Z13.89 Encounter for screening for other disorder (principal) ==

== ENCOUNTER 2024-08-08 10:03 | Outpatient (REF) | payer BC, SELFPAY | END 2024-08-08 10:04 | disposition home or self-care (01) | LOC: HO.LAB 10:03 | PROVIDERS: PCP Physician Assistant Medical; Visit Provider Advanced Practice Midwife | DX: Z13.89 Encounter for screening for other disorder (principal) ==

== ENCOUNTER 2024-08-08 10:03 | Outpatient (AMB) | payer BC, SELFPAY ==
--- NOTE | 2024-08-08 10:28 | MHC.OFFVIS ---
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 Closed Circuit Screen Watcher Required: No Information Interpreted: clinical only Hoop Punch And Coiler Operator: Hoop Punch And Coiler Operator Present Allergies Seasonal Allergies Allergy (Mild, Verified 08/08/24 10:31) Itchy Eyes latex [Latex] Allergy (Unknown, Verified 08/08/24 10:31) RASH naproxen [From Naprosyn] Allergy (Unknown, Verified 08/08/24 10:31) HIVES Medication List - Last Reconciled 08/08/24 by Suly Macias CNM buspirone 5 mg PO BID epinephrine (EpiPen 2-Anthony) 0.3 mg (0.3 mL) IM Q4H PRN fluoxetine 10 mg PO DAILY fluoxetine 20 mg PO DAILY Is last menstrual period known: No Post menopausal: Yes HPI HPI 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 She has a very complex medical surgical history secondary to her history breast cancer age 34 chemotherapy and radiation and a reconstruction. She has also had removal of the like back this year she has had basal cell and she has also had prophylactic oophorectomy in removal of her to secondary to her history including a history of positive BRCA 2. 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 But she had met with great difficulty obtaining FMLA for the treatment of her cancer this year so she is uncertain about steps. She drives back and forth to [place] for so much of her care that she wanted to get Pap smear done here to save on some of the extensive driving. She gets follow-up for her breast cancer as well with mammograms and MRIs alternating with each other. See eats well and bicycles to stay in shape and she believes she is getting enough calcium in her diet. She has tried to maintain hope through her health care challenges in journey she recently did start on medicines for anxiety and depression and she maybe seeking a therapist. She has a new primary care provider that she likes and is helping her navigate everything. She shared the story of her health care journey and history of where she gave in [place] at [place] and [facility] she gave to her 1st child in the room that her mother had in on the 3rd floor of [facility]. She has copy preparer about every 3 for her hemachromatosis though the next when maybe extended to 8 weeks. [facility] Medical History BCC (basal cell carcinoma of skin) IFG (impaired fasting glucose) Vitamin D deficiency Idiopathic anaphylaxis History of lipoma Hemochromatosis BRCA2 gene mutation positive History of right breast cancer Anxiety and depression Breast cancer Surgical History (Updated 08/08/24 @ 12:40 by Suly Macias CNM) History of History of reconstruction of right breast History of bilateral oophorectomy History of right mastectomy Family History Maternal Grandfather FH: mental illness Paternal Grandmother Diabetes Mother Cancer Sister BRCA gene mutation positive Family/Other Thyroid cancer Renal cancer Social History Housing: House Alcohol intake: current Patient Tobacco Use Status: Never used Tobacco e-Cigarette/Vaping Use: Never Used Second Hand Smoke Exposure: No service: No Current occupational status: unemployed Current occupational exposures/hazards: No Cognitive needs: No Hearing needs: No Vision needs: Yes Female Reproductive History Menstrual control method: none Total pregnancies: 5 Full term: 4 History of abnormal pap smear: Yes (previous pap negative unsure date, pt had abn. pap long time ago ,unsure da) Date of Mammogram: 01/25/24 (negative) Physical Exam Vital Signs: Last Vital Signs BP 120/70 08/08/24 10:29 BMI result Body Mass Index 21.9 Const Other: Multiple scars from her multiple surgeries and reconstructive surgeries. All well healed very good muscle tone. General: healthy appearing, comfortable, no acute distress, well developed and alert Nutritional Appearance: average body habitus Orientation/consciousness: patient oriented x3 Limitations: no limitations HEENT Head: Yes normocephalic Neck Neck: Yes normal visual inspection Chest Other: Breasts have been reconstructed soon and plans and flap of skin some abdomen so there is discoloration of breasts from different skin sources. Chest palpation & inspection: normal inspection of the chest Breast/axilla inspection: normal inspection of the breasts and normal inspection of the axillae Breast/axilla palpation: normal palpation of the breasts and normal palpation of the axillae Resp Effort & Inspection: normal respiratory effort GI Inspection: Yes normal to inspection, No Abdominal wall edema and No distended Palpation (GI): Soft to palpation and nontender Other: External exam atrophic atrophic changes vaginally as well creamy yellowish white discharge offered cultures and she accepted periods cervix multiparous pink smooth mobile nontender uterus small midposition mobile nontender. Good tone with Kegel. General: Yes bladder normal to palpation External Female Exam: normal external appearance and normal appearance of the urethra Speculum Exam - Vagina: normal appearance of the vagina, normal palpation and normal vaginal discharge Speculum Exam - Cervix: normal appearance of the cervix, normal palpation and nontender Bimanual exam- vagina & uterus: normal bimanual exam, normal palpation, uterine size normal, bladder normal to palpation, consistency normal, normal palpation, uterine mobility normal, uterine shape normal, No Cervical tenderness present, non-tender and no cervical motion tenderness Bimanual Exam- Adnexa, other: normal adnexae, no masses, normal and No adnexal tenderness Neuro General: patient oriented x3 Assessment & Plan Assessment & Plan (1) BCC (basal cell carcinoma of skin): Comment: nose and upper back [place] [facility] Code(s): C44.91 - Basal cell carcinoma of skin, unspecified Category: Medical (2) History of lipoma: Code(s): Z86.018 - Personal history of other benign neoplasm Category: Medical (3) BRCA2 gene mutation positive: Code(s): Z15.01 - Genetic susceptibility to malignant neoplasm of breast; Z15.09 - Genetic susceptibility to other malignant neoplasm Category: Medical (4) History of right breast cancer: Code(s): Z85.3 - Personal history of malignant neoplasm of breast Category: Medical (5) Hemochromatosis: Code(s): E83.119 - Hemochromatosis, unspecified Category: Medical Qualifiers: Hemochromatosis type: hereditary Qualified Code(s): E83.110 - Hereditary hemochromatosis (6) History of bilateral oophorectomy: Code(s): Z90.722 - Acquired absence of ovaries, bilateral Category: Surgical (7) History of right mastectomy: Comment: tramflap reconstruction Code(s): Z90.11 - Acquired absence of right breast and nipple Category: Surgical Plan Discussed her history in great detail she is continuing with the care in with her providers in [place] and she is on her list to be been her copy in [place] with and had his done. She is considering a therapist. She has support from her family Pap smear was done. Discussed the normal screening intervals but if her cancer physicians feels she should have more frequent screening with her Pap smear follow the guidelines as well. Patient shared her history of her mother in the same room that she labored in for her 1st child, who was delivered by at [facility] 311. Also shared her March and treatment with the men's sutures included recent elective this spring at the same time as the the removal of the lipoma. RTC 1 year patient to sign to make sure all records are sent to her providers. Coding Level of Care Code New Pt Prev Care 40-64y(30721) Diagnoses BCC (basal cell carcinoma of skin) C44.91 History of lipoma Z86.018 BRCA2 gene mutation positive Z15.01; Z15.09 History of right breast cancer Z85.3 Hereditary hemochromatosis E83.110 Hemochromatosis type: hereditary History of bilateral oophorectomy Z90.722 History of right mastectomy Z90.11
[2024-08-08 10:29] VITALS: BP 120/70; BMI 21.9
== END 2024-08-08 11:46 | disposition home or self-care (01) ==
PROVIDERS: PCP Physician Assistant Medical; Visit Provider Advanced Practice Midwife
DX: Z01.419 Encounter for gynecological examination (general) (routine) without abnormal findings (principal); C44.91 Basal cell carcinoma of skin, unspecified; E83.110 Hereditary hemochromatosis; Z86.018 Personal history of other benign neoplasm; Z90.11 Acquired absence of right breast and nipple
CPT/HCPCS: 99386

== ENCOUNTER 2024-08-08 15:50 | Outpatient (REF) | payer BC, SELFPAY ==
[2024-08-09 05:28] LABS: CT PCR NOT DETECTED (Not Detect.); NG PCR NOT DETECTED (Not Detect.)
[2024-08-11 09:07] LABS: Bacterial Vaginosis PCR POSITIVE (Negative); Candida Group PCR NOT DETECTED (Not Detect); Candida glab krusei PCR NOT DETECTED (Not Detect); Trichomonas vaginalis PCR NOT DETECTED (Not Detect)
[2024-08-11 10:15] LABS: HPV 16,18/45 See PAP report
== END 2024-08-08 15:51 | disposition home or self-care (01) ==
LOC: HO.LNP 15:50
PROVIDERS: Visit Provider Advanced Practice Midwife
DX: Z00.00 Encounter for general adult medical examination without abnormal findings (principal); N89.8 Other specified noninflammatory disorders of vagina
CPT/HCPCS: 0352U; 87491; 87591; 87624; 88175

== ENCOUNTER 2024-08-13 11:58 | Outpatient (REF) | payer BC, SELFPAY | END 2024-08-13 11:59 | disposition home or self-care (01) | LOC: HO.BBR 11:58 | PROVIDERS: PCP Physician Assistant Medical; Visit Provider Internal Medicine | DX: Z13.89 Encounter for screening for other disorder (principal) ==

== ENCOUNTER 2024-08-25 11:37 | Outpatient (AMB) | payer BC, SELFPAY ==
--- NOTE | 2024-08-25 11:47 | A.OFFPC_ITS ---
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 Is last menstrual period known: No Post menopausal: No Patient : No Allergies Seasonal Allergies Allergy (Mild, Verified 08/25/24 11:51) Itchy Eyes latex [Latex] Allergy (Unknown, Verified 08/25/24 11:51) RASH naproxen [From Naprosyn] Allergy (Unknown, Verified 08/25/24 11:51) HIVES Tobacco use date assessed: 08/25/24 Dental Screening Dental Screen Date: 08/25/24 Did you have a dental visit in the last 12 months?: Yes Did you have a dental problem in the last 6 months where you did not have access to dental care?: No Was dental information given to patient?: Patient has dentist HPI HPI Comments History of Present Illness Details This is a 59-year-old female with a past medical history of BRCA2 mutation, right breast cancer, thyroid nodule, hemochromatosis, idiopathic anaphylaxis, environmental allergies, endometriosis and vitamin-D deficiency presenting for follow up. BRCA2 mutation, right breast cancer-diagnosed in 2000. Status post right mastectomy. [place] breast [place] [facility] No known recurrence. Status post bilateral oophorectomy with removal of fallopian tubes. Breast MRI scheduled this month for screening and patient is to alternate with mammogram every 6 months. Thyroid nodule of the right lobe- 4.3 cm-biops[place] Dr. Pereira [place] [facility]. Benign. She has a follow up in 11/20/2024. She had a lipoma removed from the back of her left shoulder. She saw [facility], and had BCC removed from the left side of her nose. She had another BCC on her back removed in the interim. She will see Dermatology again in November. Hemochromatosis is followed by her wood buffer at [facility], [place]. Waters. She has therapeutic phlebotomy which is decreasing to every 8 weeks. 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 She has an divorce attorney representing her. She told me she'd tried Lexapro in the past which caused fatigue. Patient reported doing years of talk therapy. She is on fluoxetine. She increase to 30 mg. She sees improvement. She stopped buspirone because she did not find it effective. Patient says fluoxetine is helping, but she still has difficulty coping with anxiety. She cites healthcare anxiety. Patient is . She has children. Tawana is supportive of her. She has not heard about the colonoscopy though I did send a message to referrals after our last visit because of this. ROS: Constitutional: No unexplained weight loss, fever, chills, Respiratory: No shortness of breath Cardiovascular: No chest pain Gastrointestinal: No anorexia, nausea, vomiting or diarrhea. No abdominal pain or blood in stool. Psychiatric: No SI/HI. Physical exam: Constitutional: Alert, in no distress. Psychiatric: Normal mood and affect [facility] Medical History (Updated 08/13/24 @ 12:56 by Suly Macias CNM) BCC (basal cell carcinoma of skin) IFG (impaired fasting glucose) Vitamin D deficiency Idiopathic anaphylaxis History of lipoma Hemochromatosis BRCA2 gene mutation positive History of right breast cancer Anxiety and depression Breast cancer Surgical History (Updated 08/08/24 @ 12:40 by Suly Macias CNM) History of History of reconstruction of right breast History of bilateral oophorectomy History of right mastectomy Family History Maternal Grandfather FH: mental illness Paternal Grandmother Diabetes Mother Cancer Sister BRCA gene mutation positive Family/Other Thyroid cancer Renal cancer Social History Housing: House Alcohol intake: current Patient Tobacco Use Status: Never used Tobacco e-Cigarette/Vaping Use: Never Used Second Hand Smoke Exposure: No service: No Current occupational status: unemployed Current occupational exposures/hazards: No Cognitive needs: No Hearing needs: No Vision needs: Yes Questionnaire PHQ-9 Over the last 2 weeks, how often have you been bothered by any of the following problems? 1. Little interest or pleasure in doing things: several days 2. Feeling down, depressed, or hopeless: several days 3. Trouble falling or staying asleep, or sleeping too much: several days 4. Feeling tired or having little energy: more than half the days 5. Poor appetite or overeating: several days 6. Feeling bad about yourself - or that you are a failure or have let yourself or your family down: more than half the days 7. Trouble concentrating on things, such as reading the newspaper or watching television: several days 8. Moving or speaking so slowly that other people could have noticed. Or the opposite - being so fidgety or restless that you have been moving around a lot more than usual: not at all 9. Thoughts that you would be better off or of hurting yourself in some way: not at all Total score: 9 Source: Developed by Drs. Josef Rivera, Lainey Lala, oJsh Zamarripa and colleagues, with an educational esa from [employer]. Thrive Questionnaire Date Thrive assessed: 08/21/24 I am a: Patient What is your living situation today?: I have a steady place to live Within the past 12 months, did the food you bought not last and you didn't have the money to get more?: Never true Within the past 12 months, did you worry whether your food would run out before you got money to buy more?: Never true Do you have trouble paying for medicines?: No Do you have trouble getting transportation to medical appointments?: No Do you have trouble paying your heating and electricity bill?: No Do you have trouble taking care of your child, family member or friend?: No Do you have trouble with day-to-day activities such as bathing, preparing meals, shopping, managing finances, etc.?: No Are you currently unemployed and looking for a job?: Yes Are you interested in more education?: Yes Please select the resources that you would like help with: None Currently or been in a relationship where the following occur: I choose not to answer THRIVE Score: 0 AUDIT C Alcohol Use Questionnaire (AUDIT-C) 1. How often do you have a drink containing alcohol?: Never Total Score: 0 STEPHANIE-7 AMB Questionnaire STEPHANIE-7 Date STEPHANIE - 7 assessed: 07/07/24 Feeling nervous, anxious, or on edge: 2 = More than half the days Not being able to stop or control worryin = Several days Worrying too much about different things: 3 = Nearly every day Trouble relaxin = More than half the days Being so restless that it is hard to sit still: 2 = More than half the days Becoming easily annoyed or irritable: 1 = Several days Feeling afraid as if something awful might happen: 3 = Nearly every day Total STEPHANIE-7 score (0-4 normal; 5-9 mild; 10-14 moderate; 15-21 severe): 14 Source: Developed by Drs. Josef Rivera, Lainey Lala, Josh Zamarripa and colleagues, with an educational esa from [employer]. Physical exam (Primary Care) Vital Signs: Last Vital Signs Temp 98.2 F 08/25/24 11:52 Pulse 66 08/25/24 11:52 Resp 16 08/25/24 11:52 BP 140/74 H 08/25/24 11:52 Pulse Ox 98 08/25/24 11:52 Oxygen Delivery Method Room Air 08/25/24 11:52 BMI result Body Mass Index 21.5 Tobacco/Smoking Status: Tobacco use Status Tobacco use date assessed 08/25/24 08/25/24 11:55 Patient Tobacco Use Status Never used Tobacco 08/25/24 11:47 e-Cigarette/Vaping Use Never Used 08/25/24 11:47 PHQ-9: PHQ-9 Score PHQ-9: Total score 9 08/25/24 11:57 Thrive Assessment: Date of Thrive Assessment Date Thrive assessed 08/21/24 08/25/24 11:47 Currently or been in a relationship where the following occur: I choose not to answer Coding Level of Care Code Est Pt Level 4 (00093) Complex EM visit Add On G2211 Diagnoses History of right breast cancer Z85.3 BRCA2 gene mutation positive Z15.01; Z15.09 Anxiety and depression F41.9; F32.A Hereditary hemochromatosis E83.110 Hemochromatosis type: hereditary Assessment & Plan Assessment & Plan (1) History of right breast cancer: Code(s): Z85.3 - Personal history of malignant neoplasm of breast Category: Medical Plan: Followed by [facility]. She has a breast MRI for screening this month. (2) BRCA2 gene mutation positive: Code(s): Z15.01 - Genetic susceptibility to malignant neoplasm of breast; Z15.09 - Genetic susceptibility to other malignant neoplasm Category: Medical (3) Anxiety and depression: Code(s): F41.9 - Anxiety disorder, unspecified; F32.A - Depression, unspecified Category: Medical Plan: Increase fluoxetine to 40 mg daily. Side effects, black box warning and administration of medications reviewed. (4) Hemochromatosis: Code(s): E83.119 - Hemochromatosis, unspecified Category: Medical Qualifiers: Hemochromatosis type: hereditary Qualified Code(s): E83.110 - Hereditary hemochromatosis Plan: The patient has therapeutic phlebotomy every 8 weeks. Followed by hematology at [facility]. Plan Follow up in 8 weeks for medication review. Orders: Orders Complete Blood Count Auto Diff Today E83.110 - Hereditary hemochromatosis Medications: New fluoxetine 40 mg PO QAM 90 caps 1RF Discontinued buspirone Discontinued Reason: Doctor's Order 5 mg PO BID 60 tabs 0RF fluoxetine Discontinued Reason: Doctor's Order 10 mg PO DAILY 90 caps 1RF fluoxetine Take with Fluoxetine 10 mg daily for a total daily dose of 30 mg. Discontinued Reason: Doctor's Order 20 mg PO DAILY 90 caps 1RF
[2024-08-25 11:52] VITALS: BP 140/74; PULSE 66; RESP 16; TEMP 36.8; O2SAT 98; BMI 21.5
== END 2024-08-25 12:21 | disposition home or self-care (01) ==
PROVIDERS: PCP Physician Assistant Medical; Visit Provider Physician Assistant Medical
DX: E83.110 Hereditary hemochromatosis (principal); F41.9 Anxiety disorder, unspecified; F32.A Depression, unspecified; Z85.3 Personal history of malignant neoplasm of breast; Z15.01 Genetic susceptibility to malignant neoplasm of breast; Z15.09 Genetic susceptibility to other malignant neoplasm

== ENCOUNTER → 2024-08-25 11:37 | Outpatient (BNVA) | payer BC, SELFPAY | PROVIDERS: PCP Physician Assistant Medical; Visit Provider Physician Assistant Medical ==

== ENCOUNTER 2024-10-07 11:24 | Outpatient (REF) | payer BC, SELFPAY ==
[2024-10-07 13:10] LABS: MANUAL DIFF FLAG NO
[2024-10-07 13:23] LABS: Basophils Absolute Auto 0.1 X10*3/uL (0.0-0.2); Basophils Percent Auto 0.9 % (0-2); Eosinophils Absolute Auto 0.1 X10*3/uL (0.0-0.4); Eosinophils Percent Auto 1.6 % (0-4); Hematocrit 41.6 % (37.0-47.0); Hemoglobin 14.1 g/dl (12.0-16.0); Imm Gran Abs Auto 0.01 X10*3/uL (0.00-0.03); Imm Gran Pct Auto 0.1 % (0.0-0.4); Lymphocytes Absolute Auto 2.2 X10*3/uL (1.2-4.9); Lymphocytes Percent Auto 28.7 % (20-40); Mean Corpuscular HGB Conc 33.9 g/dl (31.0-35.0); Mean Corpuscular Hemoglobin 31.6 pg (27.0-33.0); Mean Corpuscular Volume 93.3 fL (80.0-98.0); Mean Platelet Volume 9.5 fL (9.4-12.3); Monocytes Absolute Auto 0.6 X10*3/uL (0.1-1.2); Monocytes Percent Auto 7.7 % (2-11); Neutrophils Absolute Auto 4.7 x10*3/uL (2.0-8.3); Platelet Count 333 X10*3/uL (160-400); Red Blood Count 4.46 X10*6/uL (4.20-5.50); White Blood Count 7.7 X10*3/uL (4.8-10.8)
== END 2024-10-07 11:25 | disposition home or self-care (01) ==
LOC: HO.HMGCLDS 11:24
PROVIDERS: PCP Physician Assistant Medical; Visit Provider Physician Assistant Medical
DX: E83.110 Hereditary hemochromatosis (principal)
CPT/HCPCS: 36415; 85025

== ENCOUNTER 2024-10-13 11:08 | Outpatient (REF) | payer BC, SELFPAY | END 2024-10-13 11:09 | disposition home or self-care (01) | LOC: HO.BBR 11:08 | PROVIDERS: PCP Physician Assistant Medical; Visit Provider Internal Medicine | DX: Z13.89 Encounter for screening for other disorder (principal) ==

== ENCOUNTER 2024-10-27 09:16 | Outpatient (AMB) | payer BC, SELFPAY ==
--- NOTE | 2024-10-27 09:21 | A.OFFVIS_ITS ---
Vital Signs 10/27/24 09:40 BP 110/68 Respiration 12 Pulse 68 Intake Visit Reasons: med check Allergies Seasonal Allergies Allergy (Mild, Verified 08/25/24 11:51) Itchy Eyes latex [Latex] Allergy (Unknown, Verified 08/25/24 11:51) RASH naproxen [From Naprosyn] Allergy (Unknown, Verified 08/25/24 11:51) HIVES HPI Comments Details: This is a 59-year-old female with a past medical history of BRCA2 mutation, right breast cancer, thyroid nodule, hemochromatosis, idiopathic anaphylaxis, environmental allergies, endometriosis, depression and anxiety and vitamin-D deficiency presenting for follow up. BRCA2 mutation, right breast cancer-diagnosed in 2000. Status post right mastectomy. Followed by breast surgery at [facility]. No known recurrence. Status post bilateral oophorectomy with removal of fallopian tubes. She had a breast MRI in 08/20/2024 that was negative for malignancy. Thyroid nodule of the right lobe- 4.3 cm-biopsied by Dr. Pereira at [facility]. Benign. She has a follow up in 11/20/2024. The patient says her recent bone density test at [facility] also showed osteopenia. She will be following up with end ocrinology about this. She is on a multivitamin that contains calcium and vitamin-D supplement. She has a history of vitamin-D deficiency. She had a lipoma removed from the back of her left shoulder. She saw [facility], and had BCC removed from the left side of her nose. She had another BCC on her back removed in the interim. She will see Dermatology again in November. Hemochromatosis is followed by her hog scraper at [facility], Dr. Waters. She has therapeutic phlebotomy every 8 weeks now. Recent CBC normal. She has a follow up in November, and I ordered labs in preparation for that visit. Depression with anxiety- Since our last visit she increase fluoxetine to 40 mg daily. She has motivation, her mood feels level, she is exercising regularly. She would like to stay on this dose. 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 In the past she was treated with Lexapro which caused fatigue. She has done years of talk therapy. Patient is . She has children. Tawana is supportive of her. She has not heard about her colonoscopy though I messaged again after our last visit. We will call Gastroenterology, and I am referring her outside to [place] in the event that she can not have the colonoscopy done at [facility] for some reason. Patient has chronic right shoulder pain and stiffness in the muscles around the shoulder since she had radiation therapy and treatment for breast cancer. She has been prescribed pain relievers and muscle relaxers in the past. She has been exercising more so it his flaring up. It improves when she rests and also if she applies heat. Her range of motion is not affected. There is no numbness or tingling or weakness in the arm. ROS: Constitutional: No unexplained weight loss, fever, chills, Respiratory: No shortness of breath Cardiovascular: No chest pain Gastrointestinal: No anorexia, nausea, vomiting or diarrhea. No abdominal pain or blood in stool. Psychiatric: No SI/HI. Physical exam: Constitutional: Alert, in no distress. Head: Normocephalic. Respiratory: Clear to auscultation. Cardiovascular: S1 S2 regular. No murmurs. Neurologic: No focal neurological deficits. Sensation intact bilaterally. Right: FROM. Nontender to palpation. Strength 5/5. Negative Speeds test. Negative empty can maneuver. No warmth, erythema, edema, ecchymosis or crepitus. Right upper trapezius muscle is firm. Left: FROM. Nontender to palpation. Strength 5/5. Negative Speeds test. Negative empty can maneuver. No warmth, erythema, edema, ecchymosis or crepitus. Extremities: Warm and well perfused. No clubbing, cyanosis or edema. 3+ peripheral pulses bilaterally. Psychiatric: Normal mood and affect [facility] Medical History (Updated 10/27/24 @ 10:05 by LORENZO Dimas) Chronic right shoulder pain Osteopenia BCC (basal cell carcinoma of skin) IFG (impaired fasting glucose) Vitamin D deficiency Idiopathic anaphylaxis History of lipoma Hemochromatosis BRCA2 gene mutation positive History of right breast cancer Anxiety and depression Breast cancer Surgical History (Updated 08/08/24 @ 12:40 by Suly Macias CNM) History of History of reconstruction of right breast History of bilateral oophorectomy History of right mastectomy Family History Maternal Grandfather FH: mental illness Paternal Grandmother Diabetes Mother Cancer Sister BRCA gene mutation positive Family/Other Thyroid cancer Renal cancer Social History Housing: House Alcohol intake: current Patient Tobacco Use Status: Never used Tobacco e-Cigarette/Vaping Use: Never Used Second Hand Smoke Exposure: No service: No Current occupational status: unemployed Current occupational exposures/hazards: No Cognitive needs: No Hearing needs: No Vision needs: Yes Assessment & Plan Assessment & Plan (1) History of right breast cancer: Code(s): Z85.3 - Personal history of malignant neoplasm of breast Category: Medical Plan: Followed by [facility]. Continue surveillance. (2) BRCA2 gene mutation positive: Code(s): Z15.01 - Genetic susceptibility to malignant neoplasm of breast; Z15.09 - Genetic susceptibility to other malignant neoplasm Category: Medical (3) Anxiety and depression: Code(s): F41.9 - Anxiety disorder, unspecified; F32.A - Depression, unspecified Category: Medical Plan: Continue fluoxetine 40 mg daily. Side effects, black box warning and administration of medications reviewed. (4) Hemochromatosis: Code(s): E83.119 - Hemochromatosis, unspecified Category: Medical Qualifiers: Hemochromatosis type: hereditary Qualified Code(s): E83.110 - Hereditary hemochromatosis Plan: The patient has therapeutic phlebotomy every 8 weeks. Followed by hematology at [facility]. (5) Osteopenia: Comment: Dexa August 2024 Code(s): M85.80 - Other specified disorders of bone density and structure, unspecified site Category: Medical Plan: She has a follow up with endocrinology at [facility] to discuss treatment. Reviewed calcium and vitamin-D supplementation. Avoid smoking and alcohol. Continue weight-bearing exercise. Check vitamin-D level. (6) Chronic right shoulder pain: Code(s): M25.511 - Pain in right shoulder; G89.29 - Other chronic pain Category: Medical Plan: Continue stretches, alternate with ice and warm compresses. She can try fluoxetine 5-10 mg nightly as needed for muscle spasm/pain. Advised it is sedating and may cause dizziness. Avoid working, driving or operating heavy machinery after taking this medication. Patient defers referral to physical therapy. Advised patient to contact the office if symptoms do not resolve in the next 4 weeks for imaging and referral. She was also advised to call if symptoms worsen. (7) BCC (basal cell carcinoma of skin): Comment: nose and upper back [facility] Code(s): C44.91 - Basal cell carcinoma of skin, unspecified Category: Medical Plan: Follow up with [facility] as planned. (8) Vitamin D deficiency: Code(s): E55.9 - Vitamin D deficiency, unspecified Category: Medical Plan: Check vitamin-D level. Plan Follow up in 6 months for an annual physical exam. Orders: Orders Complete Blood Count Auto Diff Today E83.110 - Hereditary hemochromatosis IRON PROFILE Today E83.110 - Hereditary hemochromatosis Vitamin D 1,25 dihydroxy Today M85.80 - Other specified disorders of bone density and structure, unspecified site TSH reflex Free T4 Today E55.9 - Vitamin D deficiency, unspecified, R73.01 - Impaired fasting glucose Comprehensive Met. Panel Today E83.110 - Hereditary hemochromatosis Ferritin Today E83.110 - Hereditary hemochromatosis Referrals Gastroenterology Referral Z12.11 - Encounter for screening for malignant neoplasm of colon Medications: New cyclobenzaprine 5 - 10 mg (1 - 2 x 5 mg) PO BEDTIME 30 tabs 0RF muscle pain/s pasm Coding Level of Care Code Est Pt Level 5 (91020) Complex EM visit Add On G2211 Diagnoses History of right breast cancer Z85.3 BRCA2 gene mutation positive Z15.01; Z15.09 Anxiety and depression F41.9; F32.A Hereditary hemochromatosis E83.110 Hemochromatosis type: hereditary Osteopenia M85.80 Chronic right shoulder pain M25.511; G89.29 BCC (basal cell carcinoma of skin) C44.91 Vitamin D deficiency E55.9 Time Spent (min) 57 Comment Direct patient care, chart review, completing documentation
[2024-10-27 09:40] VITALS: BP 110/68; PULSE 68; RESP 12
== END 2024-10-27 09:58 | disposition home or self-care (01) ==
PROVIDERS: PCP Physician Assistant Medical; Visit Provider Physician Assistant Medical
DX: E83.110 Hereditary hemochromatosis (principal); F41.9 Anxiety disorder, unspecified; Z85.3 Personal history of malignant neoplasm of breast; F32.A Depression, unspecified; M85.80 Other specified disorders of bone density and structure, unspecified site; G89.29 Other chronic pain; Z15.01 Genetic susceptibility to malignant neoplasm of breast; Z15.09 Genetic susceptibility to other malignant neoplasm; C44.91 Basal cell carcinoma of skin, unspecified; E55.9 Vitamin D deficiency, unspecified; M25.511 Pain in right shoulder

== ENCOUNTER → 2024-10-27 09:16 | Outpatient (BNVA) | payer BC, SELFPAY | PROVIDERS: PCP Physician Assistant Medical; Visit Provider Physician Assistant Medical ==

== ENCOUNTER 2024-11-19 08:59 | Outpatient (REF) | payer BC, SELFPAY ==
--- OUTSIDE RECORDS SUMMARY | 2024-11-19 09:09 | XMS_ITS | Encounter Summary ---
Author Organization [facility] Address [address] [place] [address] Care Team Providers Care Panel Wirer Name Role Phone Mayela Skaggs Primary Care Provider [phone] Reason for Visit * Reason Onset Date Comments Special Procedure 11/06/2024 Encounter Details Date Type Department Care Team (Late st Contact Info) Description 11/06/2024 Telephone Gastroenterology - [place] [address] [facility] [address] [address] [place] [phone] Samantha Pierre MD 175 [facility] [address] [place] [address] Special Procedure Social History Tobacco Use Types Packs/Day Years Used Date Smoking Tobacco: Never Assessed Comments Unknown Sex and Gender Information Value Date Recorded Sex Assigned at Not on file Legal Sex Female 9:06 AM EST Gender Identity Not on file Sexual Orientation Not on file documented as of this encounter Progress Notes * Sherlyn Claros - 11/11/2024 4:13 PM EST scheduled * Sherlyn Claros - 11/11/2024 10:30 AM EST 2nd attempt to schedule an appointment patient left message to call back * Nataliya Shah MA - 11/07/2024 2:32 PM EST 1st attempt to schedule an appointment patient left message to call back SCREENING-ANY * Sherlyn Orellana MA - 11/06/2024 3:18 PM EST Meds and allergies updated, given to GI schedulers. Debbi * Emily Gregory - 11/06/2024 12:24 PM EST Records received from [facility] for colonoscopy, given to Debbi to update meds & allergies documented in this encounter Plan of Treatment Upcoming Encounters Date Type Department Care Team (Late st Contact Info) Description 01/14/2025 2:00 PM EDT Appointment [facility] Endoscopy [address] [place] [address] Hever Hinton MD [address] [address] documented as of this encounter Visit Diagnoses Not on filedocumented in this encounter Care Teams Panel Wirer Relationship Specialty Start Date End Date Mayela Skaggs PA [address] [place] [address] PCP - General Physician Peoplesoft Business Analyst 10/29/24 documented as of this encounter
--- OUTSIDE RECORDS SUMMARY | 2024-11-19 09:09 | XMS_ITS | Encounter Summary ---
Author Organization [facility] Address [address] [place] [address] Care Team Providers Care Rate Analyst Name Role Phone Mayela Skaggs Primary Care Provider [phone] Reason for Visit * Reason Onset Date Comments Information Needed 10/29/2024 Encounter Details Date Type Department Care Team (Late st Contact Info) Description 10/29/2024 Telephone Gastroenterology - [place] 175 [place] [address] [place] [phone] Samantha Pierre MD [address] [facility] [address] [facility] [address] [place] [address] Information Needed Social History Tobacco Use Types Packs/Day Years Used Date Smoking Tobacco: Never Assessed Comments Unknown Sex and Gender Information Value Date Recorded Sex Assigned at Not on file Legal Sex Female 9:06 AM EST Gender Identity Not on file Sexual Orientation Not on file documented as of this encounter Progress Notes * Emily Gregory - 11/06/2024 12:21 PM EST RECORDS RECEIVED * Emily Gregory - 11/04/2024 12:19 PM EST 3RD REQUEST FAXED TO [facility] [place] * Emily Gregory - 10/31/2024 9:16 AM EST 2ND REQUEST FAXED TO [facility] FOR MEDICATION LIST * Emily Gregory - 10/29/2024 9:13 AM EST Records received from [facility] for colonoscopy, missing med list. Placed in missing folder & faxed. documented in this encounter Plan of Treatment Upcoming Encounters Date Type Department Care Team (Late st Contact Info) Description 01/14/2025 2:00 PM EDT Appointment [facility] Endoscopy [address] [place] [phone] Hever Hinton MD [address] [address] documented as of this encounter Visit Diagnoses Not on filedocumented in this encounter Care Teams Rate Analyst Relationship Specialty Start Date End Date Mayela Skaggs PA [address] [place] [address] PCP - General Physician Cavalry Scout 10/29/24 documented as of this encounter
--- OUTSIDE RECORDS SUMMARY | 2024-11-19 09:09 | XMS_ITS | Clinical Summary ---
Author Organization [facility] Address [address] [facility] [place] [address] Care Team Providers Care Security Assurance Specialist Name Role Phone Unknown Primary Care Provider Unavailabl e Social History Tobacco Use Types Packs/Day Years Used Date Smoking Tobacco: Never Assessed Sex and Gender Information Value Date Recorded Sex Assigned at Not on file Gender Identity Not on file Sexual Orientation Not on file Plan of Treatment Health Maintenance Due Date Last Done Comments CT Colonography 1967 Colonoscopy 1967 Colorectal Cancer Screening 1967 FIT DNA 1967 FIT 1967 Sigmoidoscopy (10 year) with FIT yearly 1967 Sigmoidoscopy 1967 HIV screen 1985 Hepatitis C Screening 1985 Hepatitis B vaccine (0-59 yrs) (1) 1986 Tetanus/Diphtheria/Pertussis Vaccines (1 - Tdap) 04/05 HPV test 1997 PAP Smear 1997 Breast Cancer Share Decision Needed 2007 Breast Cancer screening 2007 Pneumoccocal Vaccine: 50+ (1 of 1 - PCV) 2017 Zoster vaccine (1 of 2) 2017 Advance Directive 2022 Covid-19 Vaccine (1 - 2023- season) 2024 Influenza (Flu) vaccine (1 o f 1 - Influenza standard series) 06/01/2024 Care Teams Security Assurance Specialist Relationship Specialty Start Date End Date Unknown None PCP - General 09/17/17
--- OUTSIDE RECORDS SUMMARY | 2024-11-19 09:09 | XMS_ITS | Clinical Summary ---
Author Organization [address] [place] [address] Address [address] [place] [address] Phone Care Team Providers Care Toys Inspector Name Role Phone Mayela Skaggs Primary Care Provider [phone] Allergies Active Allergy Reactions Criticality Noted Date Comments Latex 11/06/2024 Naproxen 11/06/2024 Other 11/06/2024 Seasonal allergies Medications cyclobenzaprine (FLEXERIL) 5 mg tablet Take 2 tablets (10 mg total) by mouth at bedtime as needed for muscle spasms. 5-10 mg at bedtime Active polyethylene glycol (Golytely) 236-22.74-6.74 -5.86 gram solution Take 4L by mouth once for one dose. May substitue any PEG. Starting at 6PM the night before your procedure drink 1 8oz glasses at your own pace until you complete half of the gallon. Finish 2nd half of the gallon 5 hours before your procedure. 4000 mL 5 Active bisacodyL (DULCOLAX) 5 mg EC tablet Take 2 tablets by mouth right before beginning bowel prep. See instructions provided by the office 2 tablet 5 Active Encounters Date Type Department Care Team Description 11/06/2024 Telephone Gastroenterology [facility] [address] [address] Samantha Pierre MD Special Procedure 10/29/2024 Telephone Gastroenterology [address] [address] Samantha Pierre MD Information Needed from Last 3 Months Social History Tobacco Use Types Packs/Day Years Used Date Smoking Tobacco: Never Assessed Comments Unknown Sex and Gender Information Value Date Recorded Sex Assigned at Not on file Legal Sex Female 9:06 AM EST Gender Identity Not on file Sexual Orientation Not on file Plan of Treatment Upcoming Encounters Date Type Department Care Team (Late st Contact Info) Description 01/14/2025 2:00 PM EDT Appointment [facility] Endoscopy [address] [place] [phone] Hever Hinton MD 299 [facility] [address] [place] [address] Health Maintenance Due Date Last Done Comments Breast Cancer Screening 1967 DTaP,Tdap,and Td Vaccines (1 - Tdap) 1986 Hepatitis B Vaccines (1 of 3 - 19+ 3-dose series) 1986 Cervical Cancer Screening: P ap Smear 1988 Pneumococcal Vaccine: 50+ Ye ars (1 of 1 - PCV) 2017 Zoster Vaccines (1 of 2) 2017 COVID-19 Vaccine (2023-2 5 season) 2024 Influenza Vaccine (#1) 2024 Colorectal Cancer Screening: Colonoscopy 10/29/2024 Depression Screening 10/29/2024 HIV Screening 10/29/2024 Hepatitis C Screening 10/29/2024 Social Influencers of Health Screening 10/29/2024 HIB Vaccines Aged Out No longer eligi ble based on patient's age to complete this topic HPV Vaccines Aged Out No longer eligi ble based on patient's age to complete this topic Hepatitis A Vaccines Aged Out No long er eligible based on patient's age to complete this topic IPV Vaccines Aged Out No longer eligi ble based on patient's age to complete this topic MMR Vaccines Aged Out No longer eligi ble based on patient's age to complete this topic Meningococcal ACWY Vaccine Aged Out N o longer eligible based on patient's age to complete this topic Meningococcal B Vacine Aged Out No lo nger eligible based on patient's age to complete this topic Pneumococcal Vaccine: Pediat rics (0 to 5 Years) and At-Risk Patients (6 to 64 Years) Aged Out No longer eligible b ased on patient's age to complete this topic RSV Immunization Patients Un fabio 20 months Aged Out No longer eligible b ased on patient's age to complete this topic Varicella Vaccines Aged Out No longer eligible based on patient's age to complete this topic Insurance [facility] Care Teams Toys Inspector Relationship Specialty Start Date End Date Mayela Skaggs PA [address] [place] [id number] PCP - General Physician Client Care Representative 10/29/24
[2024-11-19 10:11] LABS: MANUAL DIFF FLAG NO
[2024-11-19 10:17] LABS: Basophils Absolute Auto 0.1 X10*3/uL (0.0-0.2); Basophils Percent Auto 1.1 % (0-2); Eosinophils Absolute Auto 0.1 X10*3/uL (0.0-0.4); Eosinophils Percent Auto 1.5 % (0-4); Hematocrit 38.5 % (37.0-47.0); Hemoglobin 13.3 g/dl (12.0-16.0); Imm Gran Abs Auto 0.02 X10*3/uL (0.00-0.03); Imm Gran Pct Auto 0.4 % (0.0-0.4); Lymphocytes Absolute Auto 1.2 X10*3/uL (1.2-4.9); Lymphocytes Percent Auto 22.7 % (20-40); Mean Corpuscular HGB Conc 34.5 g/dl (31.0-35.0); Mean Corpuscular Volume 92.8 fL (80.0-98.0); Mean Platelet Volume 9.4 fL (9.4-12.3); Monocytes Absolute Auto 0.3 X10*3/uL (0.1-1.2); Monocytes Percent Auto 6.4 % (2-11); Neutrophils Absolute Auto 3.6 x10*3/uL (2.0-8.3); Neutrophils Percent Auto 67.9 % (45-73); Platelet Count 285 X10*3/uL (160-400); Red Blood Count 4.15 X10*6/uL (4.20-5.50); Red Cell Distribution Width 12.4 % (11.0-16.0); White Blood Count 5.3 X10*3/uL (4.8-10.8)
[2024-11-19 10:56] LABS: Alanine Aminotransferase 26 U/L (0-31); Albumin Level 4.4 g/dL (3.5-5.0); Alkaline Phosphatase 66 U/L (39-117); Anion Gap 12 (12-20); Aspartate Amino Transferase 33 U/L (5-31); Bilirubin Total 0.5 mg/dL (0.0-1.0); Blood Urea Nitrogen 11 mg/dL (9-16); Calcium 8.9 mg/dL (8.4-10.2); Carbon Dioxide 25 mmol/L (22-29); Chloride 103 mmol/L (96-108); Estimated Glomerular Filt Rate > 60; Glucose Random 92 mg/dL (60-115); Iron 141 mcg/dL (30-160); Percent Iron Saturation 61 % (15-50); Potassium 4.1 mmol/L (3.3-5.1); Sodium 136 mmol/L (135-145); Total Iron Binding Capacity 231 mcg/dL (228-428); Total Protein 7.5 g/dL (6.5-8.0); Unsaturated Iron Binding 90 ug/dL
[2024-11-19 11:18] LABS: Ferritin 48 ng/mL (10-250); TSH reflex Free T4 0.26 uIU/mL (0.32-4.0)
[2024-11-19 11:50] LABS: Free T4 (Free Thyroxine) 0.87 ng/dL (0.71-1.85)
[2024-11-23 14:18] LABS: VITAMIN D (1,25 OH) D3 42 pg/mL; Vit D (1,25-Dihydroxy) Total 42 pg/mL (18-72); Vitamin D (1,25 OH) D2 <8 pg/mL
== END 2024-11-19 09:00 | disposition home or self-care (01) ==
LOC: HO.HMGCLDS 08:59
PROVIDERS: PCP Physician Assistant Medical; Visit Provider Physician Assistant Medical
DX: E83.110 Hereditary hemochromatosis (principal); M85.80 Other specified disorders of bone density and structure, unspecified site; R73.01 Impaired fasting glucose
CPT/HCPCS: 36415; 80053; 82652; 82728; 83540; 84439; 84443; 85025

== ENCOUNTER 2024-12-05 07:15 | Outpatient (REF) | payer BC, SELFPAY ==
--- OUTSIDE RECORDS SUMMARY | 2024-12-05 07:17 | XMS_ITS | Encounter Summary ---
Author Organization [facility] Address [address] [place] [address] Care Team Providers Care Bed Spring Maker Name Role Phone Mayela Skaggs Primary Care Provider [phone] Reason for Visit * Reason Onset Date Comments Information Needed 10/29/2024 Encounter Details Date Type Department Care Team (Late st Contact Info) Description 10/29/2024 Telephone Gastroenterology - [place] 175 [place] [address] [place] [phone] Samantha Pierre MD [address] [facility] [address] [facility] [address] [place] [address] Information Needed Social History Tobacco Use Types [...] 12:19 PM EST 3RD REQUEST FAXED TO [facility] FOR MED LIST * Emily Gregory - 10/31/2024 9:16 AM EST 2ND REQUEST FAXED TO [facility] FOR MEDICATION LIST * Emily Gregory - 10/29/2024 9:13 AM EST Records received from [facility] for colonoscopy, missing med list. Placed in missing folder & faxed. documented in this encounter Plan of Treatment Upcoming Encounters Date Type Department Care Team (Late st Contact Info) Description 01/14/2025 2:00 PM EDT Appointment [facility] Endoscopy [address] [place] [phone] Hever Hinton MD [address] [address] documented as of this encounter Visit Diagnoses Not on filedocumented in this encounter Care Teams Bed Spring Maker Relationship Specialty Start Date End Date Mayela Skaggs PA [address] [place] [address] PCP - General Physician Customer Facilities Supervisor 10/29/24 documented as of this encounter
--- OUTSIDE RECORDS SUMMARY | 2024-12-05 07:17 | XMS_ITS | Encounter Summary ---
Author Organization [facility] Address [address] [place] [address] Care Team Providers Care Cafe Team Member Name Role Phone Mayela Skaggs Primary Care Provider [phone] Reason for Visit * Reason Onset Date Comments Special Procedure 11/06/2024 Encounter Details Date Type Department Care Team (Late st Contact Info) Description 11/06/2024 Telephone Gastroenterology - [place] 175 [facility] [address] [facility] [address] [place] [phone] Samantha Pierre MD 175 [facility] 200 [place] [address] Special Procedure Social History Tobacco Use Types [...] 11/06/2024 12:24 PM EST Records received from [facility] for colonoscopy, given to Debbi to update meds & allergies documented in this encounter Plan of Treatment Upcoming Encounters Date Type Department Care Team (Late st Contact Info) Description 01/14/2025 2:[address] [facility] Endoscopy [address] [place] [address] Hever Hinton MD [address] [address] documented as of this encounter Visit Diagnoses Not on filedocumented in this encounter Care Teams Cafe Team Member Relationship Specialty Start Date End Date Mayela Skaggs PA [address] [place] [address] PCP - General Physician Geodesy Teacher 10/29/24 documented as of this encounter
--- OUTSIDE RECORDS SUMMARY | 2024-12-05 07:17 | XMS_ITS | Clinical Summary ---
Author Organization [facility] Address [facility] [address] Care Team Providers Care Esthetician/Skin Therapist Name Role Phone Unknown Primary Care Provider [...] - Influenza standard series) 06/01/2024 Care Teams Esthetician/Skin Therapist Relationship Specialty Start Date End Date Unknown None PCP - General 09/17/17
--- OUTSIDE RECORDS SUMMARY | 2024-12-05 07:17 | XMS_ITS | Clinical Summary ---
Author Organization [address] [place] [address] Address [address] [place] [address] Phone Care Team Providers Care [employer] Executive Director Name Role Phone Mayela Skaggs Primary Care Provider [phone] Allergies Active Allergy Reactions Criticality Noted Date [...] Department Care Team Description 11/06/2024 Telephone Gastroenterology [facility] [address] [address] Samantha Pierre MD Special Procedure 10/29/2024 Telephone Gastroenterology [address] [address] Samantha Pierre MD Information Needed [...] Info) Description 01/14/2025 2:00 PM EDT Appointment [facility] Endoscopy [address] [place] [phone] Hever Hinton MD 299 [facility] [address] [place] [address] Health Maintenance Due Date Last Done Comments [...] patient's age to complete this topic Insurance [facility] Care Teams [employer] Executive Director Relationship Specialty Start Date End Date Mayela Skaggs PA [address] [place] [id number] PCP - General Physician Window Caser 10/29/24
[2024-12-05 09:57] LABS: MANUAL DIFF FLAG NO
[2024-12-05 10:22] LABS: Basophils Absolute Auto 0.1 X10*3/uL (0.0-0.2); Eosinophils Absolute Auto 0.1 X10*3/uL (0.0-0.4); Eosinophils Percent Auto 1.6 % (0-4); Hematocrit 37.7 % (37.0-47.0); Imm Gran Abs Auto 0.01 X10*3/uL (0.00-0.03); Imm Gran Pct Auto 0.2 % (0.0-0.4); Immature Retic Fraction 5.5 % (3.0-15.9); Lymphocytes Absolute Auto 1.5 X10*3/uL (1.2-4.9); Lymphocytes Percent Auto 25.7 % (20-40); Mean Corpuscular HGB Conc 34.5 g/dl (31.0-35.0); Mean Corpuscular Hemoglobin 31.5 pg (27.0-33.0); Mean Corpuscular Volume 91.3 fL (80.0-98.0); Mean Platelet Volume 9.7 fL (9.4-12.3); Monocytes Absolute Auto 0.4 X10*3/uL (0.1-1.2); Monocytes Percent Auto 7.5 % (2-11); Neutrophils Absolute Auto 3.7 x10*3/uL (2.0-8.3); Platelet Count 304 X10*3/uL (160-400); Red Blood Count 4.13 X10*6/uL (4.20-5.50); Red Cell Distribution Width 12.1 % (11.0-16.0); Retic HGB Equivalent 35.9 pg (30.0-35.0); Reticulocyte Percent 1.6 % (0.5-1.8); Reticulocytes Absolute 0.064 X10*6/uL (0.026-0.095); White Blood Count 5.8 X10*3/uL (4.8-10.8)
[2024-12-05 10:32] LABS: Alanine Aminotransferase 20 U/L (0-31); Albumin Level 4.2 g/dL (3.5-5.0); Alkaline Phosphatase 65 U/L (39-117); Anion Gap 11 (12-20); Aspartate Amino Transferase 27 U/L (5-31); Bilirubin Total 0.5 mg/dL (0.0-1.0); Blood Urea Nitrogen 8 mg/dL (9-16); Carbon Dioxide 24 mmol/L (22-29); Chloride 104 mmol/L (96-108); Estimated Glomerular Filt Rate > 60; Glucose Random 98 mg/dL (60-115); Iron 119 mcg/dL (30-160); Percent Iron Saturation 55 % (15-50); Potassium 3.9 mmol/L (3.3-5.1); Sodium 135 mmol/L (135-145); Total Iron Binding Capacity 218 mcg/dL (228-428); Total Protein 7.3 g/dL (6.5-8.0); Unsaturated Iron Binding 99 ug/dL
[2024-12-05 11:00] LABS: Erythrocyte Sedimentation Rate 12 MM/HR (0-20)
[2024-12-05 11:01] LABS: Ferritin 55 ng/mL (10-250); Thyroid Stimulating Hormone 0.18 uIU/mL (0.32-4.0)
[2024-12-05 11:12] LABS: Lactate Dehydrogenase 213 U/L (122-220)
[2024-12-08 12:13] LABS: Alpha Fetoprotein 1.9 ng/mL
== END 2024-12-05 07:16 | disposition home or self-care (01) ==
LOC: HO.HMGCLDS 07:15
PROVIDERS: PCP Physician Assistant Medical; Visit Provider Internal Medicine
DX: E83.110 Hereditary hemochromatosis (principal)
CPT/HCPCS: 36415; 80053; 82105; 82728; 83540; 83615; 84443; 85025; 85045; 85652

== ENCOUNTER 2024-12-16 15:37 | Outpatient (REF) | payer BC, SELFPAY | END 2024-12-16 15:38 | disposition home or self-care (01) | LOC: HO.BBR 15:37 | PROVIDERS: PCP Physician Assistant Medical; Visit Provider Internal Medicine | DX: Z13.89 Encounter for screening for other disorder (principal) ==

== ENCOUNTER 2025-04-02 14:31 | Outpatient (REF) | payer BC, SELFPAY ==
--- OUTSIDE RECORDS SUMMARY | 2025-04-02 14:34 | XMS_ITS | Clinical Summary ---
Author Organization 175 [facility] Address [address] [place] [address] Phone Care Team Providers Care Rn Chronic Name Role Phone Mayela Skaggs Primary Care Provider [phone] Allergies Active Allergy Reactions Criticality Noted Date Comments Latex 11/06/2024 Naproxen 11/06/2024 Medications cyclobenzaprine (FLEXERIL) 5 mg tablet Take [...] by the office 2 tablet 5 Active bisacodyL (DULCOLAX) 5 mg EC tablet Take 2 tablets by mouth right before beginning bowel prep. See instructions provided by the office 2 tablet 5 Active polyethylene glycol (Golytely) 236-22.74-6.74 -5.86 gram solution Take 4L by mouth once for one dose. May substitue any PEG. Starting at 6PM the night before your procedure drink 1 8oz glasses at your own pace until you complete half of the gallon. Finish 2nd half of the gallon 5 hours before your procedure. 4000 mL 5 Active FLUoxetine (PROzac) 40 mg capsule Take 1 capsule (40 mg total) by mouth 1 (one) time each day. 4 Active cholecalciferol (VITAMIN D-3) 50 mcg (2,000 unit) capsule Take 1 capsule (2,000 Units total) by mouth daily. Active Encounters Date Type Department Care Team Description 01/14/2025 1:57 PM EDT Anesthesia Event [facility] [address] [place] [phone] Elliott Earl MD Dusza, Sara, CRNA 01/14/2025 1:18 PM EDT - 01/14/2025 11:59 PM EDT Hospital Encounter [facility] [address] [place] [phone] Carl Judd MD Dusza, Sara, CRNA Chang, Daniel J, MD Colon cancer screening Discharge Disposition: Home or Self Care from Last 3 Months Surgical History Surgery Date Site/Laterality Comments MASTECTOMY LAPAROTOMY OOPHERECTOMY Medical History Medical History Date Comments Anxiety Depression Breast cancer (CMS/HCC V24, CMS/HCC V28) Thyroid nodule Hemochromatosis Social History Tobacco Use Types Packs/Day Years Used Date Smoking Tobacco: Never Smokeless Tobacco: Never Tobacco Cessation:Counseling Given: Not Answered Alcohol Use Standard Drinks/Week Comments Never 0 (1 standard drink = 0.6 oz pur e alcohol) Interpersonal Safety Answer Date Record ed Physical Abuse 01/14/2025 Verbal Abuse 01/14/2025 Comments Unknown Sex and Gender Information Value Date Recorded Sex Assigned at Not on file Legal Sex Female 9:06 AM EST Gender Identity Not on file Sexual Orientation Not on file Obstetrics History Last Filed Vital Signs Vital Sign Reading Time Taken Comments Blood Pressure 126/78 01/14/2025 2:39 PM EDT Pulse 74 01/14/2025 2:39 PM EDT Temperature 37 C (98.6 F) 01/14/2025 2:19 PM EDT Respiratory Rate 12 01/14/2025 2:39 PM EDT Oxygen Saturation 100% 01/14/2025 2:39 PM EDT Inhaled Oxygen Concentration - - Weight 55.8 kg (123 lb) 01/14/2025 1:47 PM EDT Height 170.2 cm (5' 7 ) 01/14/2025 1:47 PM EDT Body Mass Index 19.26 01/14/2025 1:47 PM EDT Plan of Treatment Health Maintenance Due Date Last Done Comments Breast Cancer Screening 1965 Hepatitis B Vaccines (1 of 3 - 19+ 3-dose series) 1986 Pneumococcal Vaccine: 50+ Years (1 of 2 - PCV) 1986 Pneumococcal Vaccine: Pediatrics (0 to 5 Years) and At-Risk Patients (6 to 64 Years) (1 of 2 - PCV) 1986 Cervical Cancer Screening: Pap Smear 1988 COVID-19 Vaccine (2 - Moderna risk series) 02/08/2021 01/11/2021 Zoster Vaccines (2 of 2) 09/20/2021 07/26/2021 Depression Screening 10/29/2024 HIV Screening 10/29/2024 Hepatitis C Screening 10/29/2024 Social Influencers of Health Screening 10/29/2024 DTaP,Tdap,and Td Vaccines (2 - Td or Tdap) 01/15/2029 01/15/2019 Colorectal Cancer Screening: Colonoscopy 01/14/2035 01/14/2025 Influenza Vaccine Completed 07/07/2024, , 07/05/2021, Additional history exists HIB Vaccines Aged Out No longer eligi [...] age to complete this topic Meningococcal B Vaccine Aged Out No l onger eligible based on patient's age to complete this topic RSV Immunization Patients Under 20 months Aged Out No longer eligible based on patient's age to complete this topic Varicella Vaccines Aged Out No longer eligible based on patient's age to complete this topic Procedures Procedure Name Priority Date/Time Associated Diagnosis Comments COLONOSCOPY Routine 01/14/2025 2:18 PM EDT Colon cancer screening from Last 3 Months Results * COLONOSCOPY Anesthesia - MAC; [facility] ENDOSCOPY (01/14/2025 2:18 PM EDT) Anatomical Region Laterality Modality Endoscopy 01/14/2025 1:59 PM EDT Impressions 01/14/2025 2:22 PM EDT - The entire examined colon is normal on direct and retroflexion views. - No specimens collected. Recommendation: - Repeat colonoscopy in 10 years for screening purposes. Narrative 01/14/2025 2:22 PM EDT [facility] GI Patient Name: Babita Lorenz Procedure Date: 01/14/2025 1:59 PM Date of : 1965 Age: 59 Room: ROOM 15 Gender: Female Note Status: Finalized Attending MD: Carl Judd MD, Procedure Date No Time: 01/14/2025 Procedure: Colonoscopy Indications: Screening for colorectal malignant neoplasm Providers: Carl Judd MD Referring MD: Hever Hinton MD Medicines: Propofol per Anesthesia Complications: No immediate complications. Estimated Blood Loss: Estimated blood loss: none. Procedure: Pre-Anesthesia Assessment: - ASA Grade Assessment: II - A patient with mild systemic disease. After I obtained informed consent, the scope was passed under direct vision. Throughout the procedure, the patient's blood pressure, pulse, and oxygen saturations were monitored continuously.The Colonoscope was introduced through the anus and advanced to the cecum, identified by appendiceal orifice and ileocecal valve. The colonoscopy was performed without difficulty. The patient tolerated the procedure well. The quality of the bowel preparation was good. Findings: The perianal and digital rectal examinations were normal. The entire examined colon appeared normal on direct and retroflexion views. Procedure Code(s): --- Professional --- G0121, Colorectal cancer screening; colonoscopy on individual not meeting criteria for high risk Diagnosis Code(s): --- Professional --- Z12.11, Encounter for screening for malignant neoplasm of colon CPT copyright 2020 [employer]. All rights reserved. The codes documented in this report are preliminary and upon heater helper forge review may be revised to meet current compliance requirements. Carl Judd MD 01/14/2025 2:22:33 PM This report has been signed electronically.Carl Judd MD Number of Addenda: 0 Note Initiated On: 01/14/2025 1:59 PM Scope In: Scope Out: Endoscopy Department at [facility] - [address] [place] [phone] Procedure Note Carl Judd MD - 01/14/2025 [facility] GI Patient Name: Babita Lorenz Procedure Date: 01/14/2025 1:59 PM Date of : 1965 Age: 59 Room: ROOM 15 Gender: Female Note Status: Finalized Attending MD: Carl Judd MD, Procedure Date No Time: 01/14/2025 Procedure: Colonoscopy Indications: Screening for colorectal malignant neoplasm Providers: Carl uJdd MD Referring MD: Hever Hinton MD Medicines: Propofol per Anesthesia Complications: No immediate complications. Estimated Blood Loss: Estimated blood loss: none. Procedure: Pre-Anesthesia Assessment: - ASA Grade Assessment: II - A patient with mild systemic disease. After I obtained informed consent, the scope was passed under direct vision. Throughout theprocedure, the patient's blood pressure, pulse, and oxygen saturations were monitored continuously.The Colonoscope was introduced through the anus and advanced to the cecum, identified by appendiceal orifice and ileocecal valve. The colonoscopy was performed without difficulty. The patient tolerated the procedure well. The quality of the bowel preparation was good. Findings: The perianal and digital rectal examinations were normal. The entire examined colon appeared normal on direct and retroflexion views. Procedure Code(s): --- Professional --- G0121, Colorectal cancer screening; colonoscopy on individual not meeting criteria for high risk Diagnosis Code(s): --- Professional --- Z12.11, Encounter for screening for malignantneoplasm of colon CPT copyright 2020 [employer]. All rights reserved. The codes documented in this report are preliminary and upon heater helper forge reviewmay be revised to meet current compliance requirements. Carl Judd MD 01/14/2025 2:22:33 PM This report has been signed electronically.Carl Judd MD Number of Addenda: 0 Note Initiated On: 01/14/2025 1:59 PM Scope In: Scope Out: Endoscopy Department at [facility] - [address] [place] [phone] IMPRESSION: - The entire examined colon is normal on direct and retroflexion views. - No specimens collected. Recommendation: - Repeat colonoscopy in 10 years for screening purposes. Hever Hinton MD GI~PROCEDURE ORDERABLES Final R esult from Last [address] [place] [address] [place] [phone] Care Teams Rn Chronic Relationship Specialty Start Date End Date Mayela Skaggs PA [address] [place] [address] PCP - General Physician Manager Sales Support 10/29/24
[2025-04-02 16:16] LABS: MANUAL DIFF FLAG NO
[2025-04-02 16:21] LABS: Hematocrit 34.2 % (37.0-47.0); Hemoglobin 11.9 g/dl (12.0-16.0); Imm Gran Abs Auto 0.04 X10*3/uL (0.00-0.03); Imm Gran Pct Auto 0.4 % (0.0-0.4); Lymphocytes Absolute Auto 1.4 X10*3/uL (1.2-4.9); Mean Corpuscular HGB Conc 34.8 g/dl (31.0-35.0); Mean Corpuscular Hemoglobin 31.6 pg (27.0-33.0); Mean Corpuscular Volume 90.7 fL (80.0-98.0); NRBC Abs Auto 0.000 X10*3/uL (0.0-0.012); NRBC Pct Auto 0.0 /100WBC (0.0-0.2); Platelet Count 269 X10*3/uL (160-400); Red Blood Count 3.77 X10*6/uL (4.20-5.50); White Blood Count 10.8 X10*3/uL (4.8-10.8)
[2025-04-02 16:36] LABS: Iron 118 mcg/dL (30-160); Percent Iron Saturation 52 % (15-50); Total Iron Binding Capacity 226 mcg/dL (228-428); Unsaturated Iron Binding 108 ug/dL
[2025-04-02 16:56] LABS: Ferritin 28 ng/mL (10-250); Free T4 (Free Thyroxine) 0.79 ng/dL (0.71-1.85)
== END 2025-04-02 14:32 | disposition home or self-care (01) ==
LOC: HO.HMGCLDS 14:31
PROVIDERS: PCP Physician Assistant Medical; Visit Provider Physician Assistant Medical
DX: E83.110 Hereditary hemochromatosis (principal); E04.1 Nontoxic single thyroid nodule
CPT/HCPCS: 36415; 82728; 83540; 84439; 84443; 85025

== ENCOUNTER 2025-04-09 15:57 | Outpatient (AMB) | payer BC, SELFPAY ==
--- OUTSIDE RECORDS SUMMARY | 2025-04-09 15:59 | XMS_ITS | Clinical Summary ---
Author Organization 175 [facility] Address [address] [place] [address] Phone Care Team Providers Care Engineering Inspector Name Role Phone Mayela Skaggs Primary Care Provider [phone] Allergies Active Allergy Reactions Criticality Noted Date [...] Description 01/14/2025 1:57 PM EDT Anesthesia Event [facility] Endoscopy [address] [place] [phone] Elliott Earl MD Dusza, Sara, CRNA 01/14/2025 1:18 PM EDT - 01/14/2025 11:59 PM EDT Hospital Encounter [facility] Endoscopy [address] [place] [phone] Carl Judd MD Dusza, Sara, CRNA Chang, [...] Years (1 of 2 - PCV) 1986 Cervical Cancer Screening: Pap Smear 1988 COVID-19 Vaccine (2 - Moderna risk series) 02/08/2021 01/11/2021 Zoster Vaccines (2 of 2) 09/20/2021 07/26/2021 Depression Screening 10/29/2024 HIV Screening 10/29/2024 Hepatitis C Screening 10/29/2024 Social Influencers of Health Screening 10/29/2024 Influenza Vaccine (#1) 2025 , 06/27/2022, 07/05/2021, Additional history exists DTaP,Tdap,and Td Vaccines (2 - Td or Tdap) 01/15/2029 01/15/2019 Colorectal Cancer Screening: Colonoscopy 01/14/2035 01/14/2025 HIB Vaccines Aged Out No longer eligi [...] Months Results * COLONOSCOPY Anesthesia - MAC; [facility] ENDOSCOPY (01/14/2025 2:18 PM EDT) Anatomical Region Laterality Modality Endoscopy 01/14/2025 1:59 PM EDT Impressions 01/14/2025 2:22 PM EDT - The entire examined colon is normal on direct and retroflexion views. - No specimens collected. Recommendation: - Repeat colonoscopy in 10 years for screening purposes. Narrative 01/14/2025 2:22 PM EDT [facility] GI Patient Name: Babita Lorenz Procedure [...] malignant neoplasm of colon CPT copyright 2020 [employer]. All rights reserved. The codes documented in this report are preliminary and upon global clinical leader review may be revised to meet current compliance requirements. Carl Judd MD 01/14/2025 2:22:33 PM This report has been signed electronically.Carl Judd MD Number of Addenda: 0 Note Initiated On: 01/14/2025 1:59 PM Scope In: Scope Out: Endoscopy Department at [facility] - [address] [place] [phone] Procedure Note Carl Judd MD - 01/14/2025 [facility] GI Patient Name: Babita Lorenz Procedure [...] for malignantneoplasm of colon CPT copyright 2020 [employer]. All rights reserved. The codes documented in this report are preliminary and upon global clinical leader reviewmay be revised to meet current compliance requirements. Carl Judd MD 01/14/2025 2:22:33 PM This report has been signed electronically.Carl Judd MD Number of Addenda: 0 Note Initiated On: 01/14/2025 1:59 PM Scope In: Scope Out: Endoscopy Department at [facility] - [address] [place] [phone] IMPRESSION: - The entire examined colon is normal on direct and retroflexion views. - No specimens collected. Recommendation: - Repeat colonoscopy in 10 years for screening purposes. Hever Hinton MD GI~PROCEDURE ORDERABLES Final R esult from Last 3 Months Insurance Care Teams Engineering Inspector Relationship Specialty Start Date End Date Mayela Skaggs PA [address] [place], [place] [phone] PCP - General Physician Warehouseman 10/29/24
--- NOTE | 2025-04-09 16:08 | MHC.PC.OV ---
Vital Signs 04/09/25 16:12 Height 5 ft 6 in Weight 125 lb 8 oz BMI 20.3 BP 106/68 Blood Pressure Location Rt brachial Position Sitting Respiration 14 Pulse 85 Pulse Source Pulse Oximeter Temp 97.8 F Temp Source Temporal Artery Scan Pulse Oximetry (%) 95 Oxygen Delivery Method Room Air Intake Visit Reasons: annual physical exam Intake Note: Babita presents in the office today for her annual physical. Allergies Seasonal Allergies Allergy (Mild, Verified 04/09/25 16:11) Itchy Eyes latex (Latex) Allergy (Unknown, Verified 04/09/25 16:11) RASH naproxen (From Naprosyn) Allergy (Unknown, Verified 04/09/25 16:11) HIVES Tobacco use date assessed: 04/09/25 Dental Screening Dental Screen Date: 04/09/25 Did you have a dental visit in the last 12 months?: Yes Did you have a dental problem in the last 6 months where you did not have access to dental care?: No Was dental information given to patient?: Patient has dentist HPI HPI Comments History of Present Illness Details This is a 59-year-old female with a past medical history of BRCA2 mutation, right breast cancer, thyroid nodule, hemochromatosis, idiopathic anaphylaxis, environmental allergies, endometriosis, depression and anxiety and vitamin-D deficiency presenting for follow up. BRCA2 mutation, right breast cancer-diagnosed in 2000. Status post right mastectomy. Followed by breast surgery at [facility]. No known recurrence. Status post bilateral oophorectomy with removal of fallopian tubes. She had a breast MRI in 08/20/2024 that was negative for malignancy. She has another scheduled this fall. Followed by Dr. Radha Waters. Thyroid nodule of the right lobe- 4.3 cm-biopsied by Dr. Pereira at [facility]. Benign. GRAJEDA and scan scheduled next week. She had a bone density test at [facility] that showed osteopenia. Endocrinology recommended starting calcium which she is taking. She saw [facility], and had BCC removed from the left side of her nose. She had another BCC on her back removed in the interim. She will be following annually with them now. She saw them in November. Hemochromatosis is followed by her clinical registered nurse at [facility], Dr. Waters. Last therapeutic phlebotomy in January. She goes every 8 weeks. Depression with anxiety-doing well on fluoxetine 40 mg daily. Patient is . She has 4 adult male children. Tawana is supportive of her. She had a colonoscopy done at [place] in November. It was normal, and she was told to return in 10 years. She has chronic hearing loss of the left ear. It is not bothering her. She had it tested as part of a study at [facility]. Recommended patient received the pneumonia vaccine. ROS: Constitutional: +interval weight loss. Patient says she is exercising and following a healthy diet and pleased with her weight. She has a good appetite. Denies unexplained weight loss. Denies fevers, chills or night sweats. Eyes: No vision changes, blurry vision, double vision, eye pain, eye redness, eye discharge. ENT: No hearing loss, sneezing, congestion, runny nose or sore throat. Respiratory: No shortness of breath, cough or sputum production. Cardiovascular: No chest pain, chest pressure or chest discomfort. No palpitations or pedal edema. Gastrointestinal: No anorexia, nausea, vomiting or diarrhea. No abdominal pain or blood in stool. Genitourinary: No dysuria, hematuria, urinary frequency. Neurologic: No headache, dizziness, syncope, unilateral weakness, ataxia, numbness or tingling in the extremities. Musculoskeletal: No muscle pain, back pain, joint pain or swelling. Hematologic/Lymphatics: No bleeding or bruising. No painful lymph nodes. Skin: No rash Endocrine: No cold or heat intolerance. No polyuria or polydipsia. Physical exam: Constitutional: Alert, in no distress. Head: Normocephalic. Eyes: Pupils are equal, round and reactive to light. Extraocular muscles intact. Ear, Nose and Throat: Canals clear. TMs normal. Normal nasal mucosa. No nasal discharge. No oral lesions. Neck: Supple, Full range of motion. No lymphadenopathy. +Right palpable thyroid mass. Respiratory: Clear to auscultation. Cardiovascular: S1 S2 regular. No murmurs. No carotid bruits. Gastrointestinal: Abdomen soft, non-tender, non-distended. Normal bowel sounds. No palpable masses. Neurologic: No focal neurological deficits. Symmetric patellar reflexes. Moves all extremities spontaneously. Sensation intact bilaterally. Skin: No rashes or lesions. Musculoskeletal: No gross deformities. Normal range of motion. Extremities: Warm and well perfused. No clubbing, cyanosis or edema. Intact peripheral pulses bilaterally. Psychiatric: Normal mood and affect [facility] Medical History (Updated 04/09/25 @ 17:24 by LORENZO Dimas) Routine physical examination Antibody response examination Thyroid nodule Chronic right shoulder pain Osteopenia BCC (basal cell carcinoma of skin) IFG (impaired fasting glucose) Vitamin D deficiency Idiopathic anaphylaxis History of lipoma Hemochromatosis BRCA2 gene mutation positive History of right breast cancer Anxiety and depression Breast cancer Surgical History (Updated 08/08/24 @ 12:40 by Suly Macias CNM) History of History of reconstruction of right breast History of bilateral oophorectomy History of right mastectomy Family History Maternal Grandfather FH: mental illness Paternal Grandmother Diabetes Mother Cancer Sister BRCA gene mutation positive Family/Other Thyroid cancer Renal cancer Social History (Updated 04/09/25 @ 16:09 by Nataliya Beth MA) Housing: House Alcohol intake: current Patient Tobacco Use Status: Never used Tobacco e-Cigarette/Vaping Use: Never Used Second Hand Smoke Exposure: No service: No Current occupational status: unemployed Current occupational exposures/hazards: No Cognitive needs: No Hearing needs: No Vision needs: Yes Questionnaire Thrive Questionnaire Date Thrive assessed: 10/22/24 I am a: Patient What is your living situation today?: I have a steady place to live Within the past 12 months, did the food you bought not last and you didn't have the money to get more?: Never true Within the past 12 months, did you worry whether your food would run out before you got money to buy more?: Never true Do you have trouble paying for medicines?: No Do you have trouble getting transportation to medical appointments?: No Do you have trouble paying your heating and electricity bill?: No Do you have trouble taking care of your child, family member or friend?: No Do you have trouble with day-to-day activities such as bathing, preparing meals, shopping, managing finances, etc.?: No Are you currently unemployed and looking for a job?: No Are you interested in more education?: No Please select the resources that you would like help with: None Currently or been in a relationship where the following occur: No concerns reported THRIVE Score: 0 STEPHANIE-7 AMB Questionnaire STEPHANIE-7 Date STEPHANIE - 7 assessed: 07/07/24 Source: Developed by DrsCinda Rivera, Lainey Lala, Josh Zamarripa and colleagues, with an educational esa from [employer]. Physical exam (Primary Care) Vital Signs: Last Vital Signs Temp 97.8 F 04/09/25 16:12 Pulse 85 04/09/25 16:12 Resp 14 04/09/25 16:12 BP 106/68 04/09/25 16:12 Pulse Ox 95 04/09/25 16:12 Oxygen Delivery Method Room Air 04/09/25 16:12 BMI result Body Mass Index 20.3 Tobacco/Smoking Status: Tobacco use Status Tobacco use date assessed 04/09/25 04/09/25 16:10 Patient Tobacco Use Status Never used Tobacco 04/09/25 16:10 e-Cigarette/Vaping Use Never Used 04/09/25 16:10 Thrive Assessment: Date of Thrive Assessment Date Thrive assessed 10/22/24 04/09/25 16:10 Currently or been in a relationship where the following occur: No concerns reported Coding Level of Care Code Est Pt Prev Care 40-64y(73790) Diagnoses Routine physical examination Z00.00 Assessment & Plan Assessment & Plan (1) Routine physical examination: Code(s): Z00.00 - Encounter for general adult medical examination without abnormal findings Category: Medical Plan Patient is seen today for a routine physical. As part of this visit we reviewed the following issues, which are considered and essential part of preventative health in this age group: - Breast Cancer screening - Annual [facility] Programmer exam - Screening for colon cancer - Blood pressure screening - Cholesterol screening - Osteoporosis prevention including calcium/vitamin D intake, weight bearing exercise & smoking cessation - Nutritional and exercise counseling - Counseling of injury prevention including fire prevention, smoke alarms and seat belt usage - Screening for depression - Education about skin cancer - Recommendations about immunizations - Recommendation of an eye exam - Screening for substance abuse Patient requests MMR titer. Ordered. Follow up in 6 months. Orders: Orders MMR IgG Measles Mumps Rubella Today Z01.84 - Encounter for antibody response examination Lipid Panel Today E78.5 - Hyperlipidemia, unspecified
[2025-04-09 16:12] VITALS: BP 106/68; PULSE 85; RESP 14; TEMP 36.6; O2SAT 95; BMI 20.3
== END 2025-04-09 16:50 | disposition home or self-care (01) ==
LOC: HO.HMCFM 15:58
PROVIDERS: PCP Physician Assistant Medical; Visit Provider Physician Assistant Medical
DX: Z00.00 Encounter for general adult medical examination without abnormal findings (principal)

== ENCOUNTER 2025-04-23 08:57 | Outpatient (REF) | payer BC, SELFPAY ==
--- OUTSIDE RECORDS SUMMARY | 2025-04-23 09:24 | XMS_ITS | Clinical Summary ---
Author Organization [facility] Address [address] [facility] [place] [address] Care Team Providers Care Jet Piercer Operator Name Role Phone Unknown Primary Care Provider Unavailabl e Social History Tobacco Use Types Packs/Day Years Used Date Smoking Tobacco: Never Assessed Comments Unknown Sex and Gender Information Value Date Recorded Sex Assigned at Not on file Legal Sex Female 11:49 AM EDT Gender Identity Not on file Sexual Orientation Not on file Plan of Treatment Health Maintenance Due Date Last Done Comments CT Colonography 1967 Colonoscopy 1967 Colorectal Cancer Screening 1965 FIT DNA 1967 FIT 1967 Sigmoidoscopy (10 year) with FIT yearly 1967 Sigmoidoscopy 1967 HIV screen 1985 Hepatitis C Screening 1985 Hepatitis B vaccine (0-59 yrs) and Risk (1) 1986 Tetanus/Diphtheria/Pertussis Vaccines (1 - Tdap) 04/05 HPV test 1997 PAP Smear 1997 Breast Cancer Share Decision Needed 2007 Breast Cancer screening 2007 Pneumoccocal Vaccine: 50+ (1 of 1 - PCV) 2017 Zoster vaccine (1 of 2) 2017 Advance Directive 2022 Covid-19 Vaccine (1 - 2023- season) 2024 Influenza (Flu) vaccine (1 o f 1 - Influenza standard series) 06/01/2025 Care Teams Jet Piercer Operator Relationship Specialty Start Date End Date Unknown None PCP - General 09/17/17
--- OUTSIDE RECORDS SUMMARY | 2025-04-23 09:24 | XMS_ITS | Clinical Summary ---
Author Organization 175 [facility] Address [address] [place] [address] Phone Care Team Providers Care Operating Manager Name Role Phone Mayela Skaggs Primary Care Provider [phone] Allergies Active Allergy Reactions Criticality Noted Date [...] (2,000 Units total) by mouth daily. Active Surgical History Surgery Date Site/Laterality Comments MASTECTOMY [...] (2 of 2) 09/20/2021 07/26/2021 Depression Screening 10/01/2024 HIV Screening 10/29/2024 Hepatitis C Screening 10/29/2024 Social Influencers of Health Screening 10/29/2024 Influenza Vaccine (#1) 2025 4, 06/27/2022, 07/05/2021, Additional history exists DTaP,Tdap,and Td [...] Colon cancer screening from Last 3 Months or Most Recently Relevant to Health Maintenance Results * [place]OSCOPY [place] [facility] [place] [facility] ENDOSCOPY (01/14/2025 2:18 PM EDT) Anatomical Region Laterality Modality Endoscopy 01/14/2025 1:59 PM EDT Impressions 01/14/2025 2:22 PM EDT - The entire examined colon is normal on direct and retroflexion views. - No specimens collected. Recommendation: - Repeat colonoscopy in 10 years for screening purposes. Narrative 01/14/2025 2:22 PM EDT [facility] GI Patient Name: Babita Lorenz Procedure Date: [...] malignant neoplasm of colon CPT copyright 2020 [employer]. All rights reserved. The codes documented in this report are preliminary and upon certified professional coder review may be revised to meet current compliance requirements. Carl Judd MD 01/14/2025 2:22:33 PM This report has been signed electronically.Carl Judd MD Number of Addenda: 0 Note Initiated On: 01/14/2025 1:59 PM Scope In: Scope Out: Endoscopy Department at [facility] - [address] [place] [phone] Procedure Note Carl Judd MD - 01/14/2025 [facility] GI Patient Name: Babita Lorenz Procedure Date: [...] for malignantneoplasm of colon CPT copyright 2020 [employer]. All rights reserved. The codes documented in this report are preliminary and upon certified professional coder reviewmay be revised to meet current compliance requirements. Carl Judd MD 01/14/2025 2:22:33 PM This report has been signed electronically.Carl Judd MD Number of Addenda: 0 Note Initiated On: 01/14/2025 1:59 PM Scope In: Scope Out: Endoscopy Department at [facility] - [address] [place] [phone] IMPRESSION: - The entire examined colon is normal on direct and retroflexion views. - No specimens collected. Recommendation: - Repeat colonoscopy in 10 years for screening purposes. Hever Hinton MD GI~PROCEDURE ORDERABLES Final R esult from Last 3 Months or Most Recently Relevant to Health Maintenance Insurance Care Teams Operating Manager Relationship Specialty Start Date End Date Mayela Skaggs PA [address] [place] [address] PCP - General Physician Health Economist 10/29/24
--- OUTSIDE RECORDS SUMMARY | 2025-04-23 09:24 | XMS_ITS | Encounter Summary ---
Author Organization [facility] Address [address] [place] [address] Phone Care Team Providers Care Blunger Loader Name Role Phone Mayela Skaggs Primary Care Provide r Encounter Details Date Type Department Care Team (Late st Contact Info) Description 04/07/2025 Orders Only [facility] [address] [facility], [address] [place] [address] Abdirizak Early MD [address] [place] [address] [email or web address] [email or web address] Social History Tobacco Use Types Packs/Day Years Used Date Smoking Tobacco: Never Smokeless Tobacco: Never Alcohol Use Standard Drinks/Week Comments Not Currently 0 (1 standard drink = 0.6 oz pur e alcohol) Education Answer Date Recorded Are you interested in more education? Not on arianna e 11/22/2023 Are you concerned about learning? Not on file 11/22/2023 No 11/22/2023 No 11/22/2023 Digital Access Answer Date Recorded No 11/22/2023 No 11/22/2023 Reliable internet access at home? Not on file 11/22/2023 Device with a working camera? Not on file Comments No Sex and Gender Information Value Date Recorded Sex Assigned at Not on file Legal Sex Female 5:04 PM EST Gender Identity Not on file Sexual Orientation Not on file documented as of this encounter Plan of Treatment Upcoming Encounters Date Type Department Care Team (Late st Contact Info) Description 02/05/[address], [facility] General Imaging - [address], [address] [place] [address] 02/05/2025 Procedure Pass MRI, [facility] Imaging - [address], [address] [address] 09/02/2025 1:[address], [facility] Imaging - [address], [address] [place] [address] Radha Waters MD, DPPRL [address] [place] [phone] WILLIAM@[email or web address] 09/02/2025 2:00 PM EST Appointment MRI, [facility] Imaging - [address], [address] [address] Radha Waters MD, DPPRL [address] [place] [address] WILLIAM@[email or web address] 02/16/2026 11:00 AM EDT Blood Draw [facility] [address] [place] [address], 7th Floor, [address] [place] [address] Arthur Waters MD, DPPRL [address] [place] [address] MITESH@[facility] 02/16/2026 12:00 PM EDT Office Visit [facility] [address] [place] [address], 7th Floor, [address] [place] [address] Arthur Waters MD, DPPRL [address] [place] [phone] [email or web address] documented as of this encounter Procedures Procedure Name Priority Date/Time Associated Diagnosis Comments OUTSIDE LAB Routine 04/07/2025 3:48 PM EDT documented in this encounter Results * Outside Lab (04/07/2025 3:48 PM EDT) Abdirizak Early MD LAB BLOOD ORDERABLES Final Result documented in this encounter Visit Diagnoses Not on filedocumented in this encounter Care Teams Blunger Loader Relationship Specialty Start Date End Date Mayela Skaggs PA PCP - General Physician Web Search Evaluator 06/17/24 documented as of this encounter Additional Source Comments The information contained in this document represents components of the legal health record. It is not the complete legal health record.[facility]
[2025-04-23 10:52] LABS: Cholesterol 178 mg/dL (<200); HDL Cholesterol 67 mg/dL (>40); Triglycerides 64 mg/dL (<150)
[2025-04-24 11:57] LABS: Rubeola IgG (Measles) >300.00 AU/mL
== END 2025-04-23 08:58 | disposition home or self-care (01) ==
LOC: HO.HMGCLDS 08:57
PROVIDERS: PCP Physician Assistant Medical; Visit Provider Physician Assistant Medical
DX: Z01.84 Encounter for antibody response examination (principal); E78.5 Hyperlipidemia, unspecified
CPT/HCPCS: 36415; 80061; 86735; 86762; 86765

== ENCOUNTER 2025-06-27 09:02 | Outpatient (REF) | payer BC, SELFPAY ==
--- OUTSIDE RECORDS SUMMARY | 2025-06-27 09:06 | XMS_ITS | Encounter Summary ---
Author Organization [employer] [facility] Address [address] [place] [address] Phone Care Team Providers Care Label Fuser Tender Name Role Phone Mayela Skaggs Primary Care Provide r Encounter Details Date Type Department Care Team (Late st Contact Info) Description 06/26/2025 Telephone [facility] [address] [facility], 7th Floor, [address] [place] [address] Eva Norman MD, MPH [address] [facility] [address] [place] [address] [email or web address]. U Social History Tobacco Use Types Packs/Day Years [...] as of this encounter Progress Notes * HealyAmber gavin - 06/26/2025 8:58 AM EDT Called patient and received their voicemail. I left a message with the surgery details (time of arrival/location), and also asked the patient to call the office back to confirm they received the message and will be arriving for surgery. documented in this encounter Plan of Treatment Upcoming Encounters Date Type Department Care Team (Latest Contact Info) Description 02/05/[address], [facility] General Imaging - [address], [address] [place] [address] 02/05/2025 Procedure Pass MRI, [facility] Imaging - [address], [address] [place] [address] 06/30/2025 Procedure Pass [facility] PERIOPERATIVE DEPT [address] [place] [phone] 06/30/2025 11:00 AM EDT Appointment [facility] Ultrasound, White [address] [place] [address], 2nd [place] [address] Eva Norman MD, MPH [address] [place] [address] SUZY@[facility] 06/30/2025 11:04 AM EDT Hospital Encounter [facility] PERI[facility]IVE DEPT [address] [place] [phone] Eva Norman MD, MPH [address] [place] [address] [email or web address]@[facility] 06/30/2025 11:04 AM EDT Anesthesia Event [facility] PERI[facility]IVE DEPT [address] [place] [phone] Anna Marti MD [address] [place] [address] [address] [place] [address] DBARRAGAMARCE [email or web address] Regan Charles, RN [address] [place] [phone] Reema@ [email or web address] u 06/30/2025 11:04 AM EDT - 06/30/2025 12:43 PM EDT Surgery [facility] PERI[facility]IVE DEPT [address] [place] [phone] Eva Norman MD, MPH [address] [address] SUZY@[facility] RADIOFREQUENCY ABLATION THYROID w/ US OR guidance 07/03/2025 9:30 AM EDT Telemedicine [facility] [address] [facility], 7th Floor, [address] [place] [address] Eva Norman MD, MPH [address] [place] [address] SUZY@[facility] 09/02/2025 1:[address], [facility] General Imaging - [address], [address] [place] [address] Radha Waters MD, DPHIL [address] [place] [phone] WILLIAM@[email or web address] 09/02/2025 2:00 PM EST Appointment MRI, [facility] Imaging - [address], [address] [place] [address] Radha Waters MD, DPHIL [address] [place] [phone] WILLIAM@[email or web address] 02/16/2026 11:00 AM EDT Blood Draw [facility] [address] [facility], 7th Floor, [address] [place] [address] Arthur Waters MD, [address] [address] MITESH@[facility] 02/16/2026 12:00 PM EDT Office Visit [facility] [address] [place] [address], 7th Floor, [address] [place] [address] Arthur Waters MD, DPNJL [address] [place] [phone] [email or web address]@[facility] Scheduled Procedures Name Priority Associated Diagnoses Date/Ti me RADIOFREQUENCY ABLATION THYROID Autonomous thyroid nodule 06/30/2025 11:04 AM EDT documented as of this encounter Visit Diagnoses Not on filedocumented in this encounter Care Teams Label Fuser Tender Relationship Specialty Start Date End Date Mayela Skaggs PA PCP - General Physician [employer] Commerce Solution Architect 06/17/24 documented as of this encounter Additional Source Comments The information contained in this document represents components of the legal health record. It is not the complete legal health record.[facility]
--- OUTSIDE RECORDS SUMMARY | 2025-06-27 09:06 | XMS_ITS | Encounter Summary ---
Author Organization [facility] Address [address] [place] [address] Phone Care Team Providers Care Advanced Practice Nurse Name Role Phone Jaxson Portillo MD Primary Care Provider [phone] Mayela Skaggs Primary Care Provide r Encounter Details Date Type Department Care Team (Late st Contact Info) Description 12/20/[address] [place] [address] [facility], [address] [place] [address] Social History Tobacco Use Types Packs/Day Years [...] Contact Info) Description 02/05/[address], [facility] [place] [address] [facility], [address] [place] [address] 02/05/2025 Procedure Pass MRI, [facility] - [place] [address] [facility], [address] [place] [address] 06/30/2025 Procedure Pass [facility] PERIOPERATIVE DEPT [address] [place] [phone] 06/30/2025 11:00 AM EDT Appointment [facility] Ultrasound, White 2 [address] [facility], 2nd [place] [address] Eva Norman MD, MPH [address] [place] [address] [email or web address]@[facility] 06/30/2025 11:04 AM EDT Hospital Encounter [facility] PERIOPERATIVE DEPT [address] [place] [phone] Eva Norman MD, MPH [address] [place] [phone] SUZY@[facility] 06/30/2025 11:04 AM EDT Anesthesia Event [facility] PERIOPERATIVE DEPT [address] [place] [phone] Anna Marti MD [address] [place] [address] [address] [place] [address] JOSE ALBERTO HARLEY@[facility] Regan Charles, RN [address] [place] [phone] Reema@ [facility] 06/30/2025 11:04 AM EDT - 06/30/2025 12:43 PM EDT Surgery [facility] PERIOPERATIVE DEPT [address] [place] [phone] Eva Norman MD, MPH [address] [place] [address] [email or web address]@[facility] RADIOFREQUENCY ABLATION THYROID w/ US OR guidance 07/03/2025 9:30 AM EDT Telemedicine [facility] [address] [facility], 7th Floor, [address] [place] [address] Eva Norman MD, MPH [address] [address] SUZY@[facility] 09/02/2025 1:[address], [facility] - [address], [address] [place] [address] Radha Waters MD, DPHIL [address] [facility] [address] [place] [address] WILLIAM@[facility] 09/02/2025 2:00 PM EST Appointment MRI, [facility] - [address], [address] [place] [address] Radha Waters MD, DPHIL [address] [place] [address] WILLIAM@[facility] 02/16/2026 11:00 AM EDT Blood Draw [facility] Center for Hematology [address] [facility], 7th Floor, [address] [place] [address] Arthur Waters MD, DPHIL [address] [address] MITESH@[facility] 02/16/2026 12:00 PM EDT Office Visit [facility] for [facility]emat[facility] [address] [facility], 7th Floor, [address] [place] [address] Arthur Waters MD, DPHIL [address] [place] [address] MITESH@[email or web address] Scheduled Procedures Name Priority Associated Diagnoses Date/Ti me RADIOFREQUENCY ABLATION THYROID Autonomous thyroid nodule 06/30/2025 11:04 AM EDT documented as of this encounter Visit Diagnoses Not on filedocumented in this encounter Care Teams Advanced Practice Nurse Relationship Specialty Start Date End Date Jaxson Portillo MD [address] [place] [address] [place] [address] PCP - General 03/31/14 06/16/24 Mayela Skaggs PA [address] [place] [address] [place] [address] PCP - General Physician Fire And Safety Helper 06/17/24 documented as of this encounter Additional Source Comments The information contained in this document represents components of the legal health record. It is not the complete legal health record.[facility]
--- OUTSIDE RECORDS SUMMARY | 2025-06-27 09:06 | XMS_ITS | Encounter Summary ---
Author Organization [facility] Address [address] [place] [address] Phone Care Team Providers Care Collections Associate Name Role Phone Jaxson Portillo MD Primary Care Provider Mayela Skaggs Primary Care Provide r Encounter Details Date Type Department Care Team (Late st Contact Info) Description 01/26/2024 Procedure Pass [facility] 55 [place] [phone] Social History Tobacco Use Types Packs/Day Years [...] Procedure Pass CT, [facility] [place] [address], [address] [place] [address] 02/05/2025 Procedure Pass MRI, [facility] [place] [address] [facility], [address] [place] [address] 06/30/2025 Procedure Pass [facility] 55 [place] [phone] 06/30/2025 11:00 AM EDT Appointment [facility] [place]ound, White 2 [address] [facility], 2nd [place] [address] Eva Norman MD, MPH [address] [place] [phone] [email or web address]@[facility] 06/30/2025 11:04 AM EDT Hospital Encounter [facility] [address] [place] [phone] Eva Norman MD, MPH [address] [place] [phone] SUZY@[facility] 06/30/2025 11:04 AM EDT Anesthesia Event [facility] [address] [place] [phone] Anna Marti MD [address] [place] [address] [address] [place] [address] JOSE ALBERTO HARLEY@[facility] Regan Charles, RN [address] [place] [phone] Reema@ [email or web address].ed u 06/30/2025 11:04 AM EDT - 06/30/2025 12:43 PM EDT Surgery [facility] [address] [place] [phone] Eva Norman MD, MPH [address] [place] [address] SUZY@[facility] RADIOFREQUENCY ABLATION THYROID w/ US OR guidance 07/03/2025 9:30 AM EDT Telemedicine [facility] [address] [facility], 7th Floor, [address] [place] [address] Eva Norman MD, MPH [address] [facility] 7[address] [place] [address] SUZY@[facility] 09/02/2025 1:[address], [facility] - [address], [address] [place] [address] Radha Waters MD, DPHIL [address] [facility] [address] [place] [address] WILLIAM@[facility] 09/02/2025 2:00 PM EST Appointment MRI, [facility] - [address], [address] [place] [address] Radha Waters MD, DPHIL [address] [facility] [address] [place] [address] WILLIAM@[facility] 02/16/2026 11:00 AM EDT Blood Draw [facility] [address] [facility], 7th Floor, [address] [place] [address] Arthur Waters MD, DPHIL [address] [address] MITESH@[facility] 02/16/2026 12:00 PM EDT Office Visit [facility] [address] [facility], 7th Floor, [address] [place] [address] Arthur Waters MD, DPHIL [address] [place] [phone] MITESH@[facility] Scheduled Procedures Name Priority Associated Diagnoses Date/Ti me RADIOFREQUENCY ABLATION THYROID Autonomous thyroid nodule 06/30/2025 11:04 AM EDT documented as of this encounter Visit Diagnoses Not on filedocumented in this encounter Care Teams Collections Associate Relationship Specialty Start Date End Date Jaxson Portillo MD [address] [place] [address] [place] [address] PCP - General 03/31/14 06/16/24 Mayela Skaggs PA [address] [place] [address] [place] [address] PCP - General Physician Machinist Wood 06/17/24 documented as of this encounter Additional Source Comments The information contained in this document represents components of the legal health record. It is not the complete legal health record.[facility]
--- OUTSIDE RECORDS SUMMARY | 2025-06-27 09:06 | XMS_ITS | Encounter Summary ---
Author Organization [facility] Address [address] [place] [address] Phone Care Team Providers Care Oil And Gas Lease Pumper Name Role Phone Jaxson Portillo MD Primary Care Provider [phone] Mayela Skaggs Primary Care Provide r Encounter Details Date Type Department Care Team (Late st Contact Info) Description 01/17/2024 Procedure Pass [facility] CT, [place] 2 55 [facility], 2nd Floor, [address] [place] [address] Social History Tobacco Use Types Packs/Day Years [...] Procedure Pass CT, [facility] [place] [address] [facility], [address] [place] [address] 02/05/2025 Procedure Pass MRI, [facility] Imaging - [place] [address] [facility], [address] [place] [address] 06/30/2025 Procedure Pass [facility] PERIOPERATIVE DEPT 55 [place] [phone] 06/30/2025 11:00 AM EDT Appointment [facility] Ultrasound, White 2 55 [facility], 2nd [place] [address] Eva Norman MD, MPH [address] [place] [phone] [email or web address]@[facility] 06/30/2025 11:04 AM EDT Hospital Encounter [facility] PERIOPERATIVE DEPT [address] [place] [phone] Eva Norman MD, MPH [address] [place] [address] [email or web address]@[facility] 06/30/2025 11:04 AM EDT Anesthesia Event [facility] PERIOPERATIVE DEPT [address] [place] [phone] Anna Marti MD [address] [place] [address] 444 [place] [address] JOSE ALBERTO HARLEY@[email or web address] Regan Charles, RN [address] [place] [phone] Reema@ [facility].[place] 06/30/2025 11:04 AM EDT - 06/30/2025 12:43 PM EDT Surgery [facility] PERIOPERATIVE DEPT [address] [place] [phone] Eva Norman MD, MPH [address] [place] [address] [email or web address] RADIOFREQUENCY ABLATION THYROID w/ US OR guidance 07/03/2025 9:30 AM EDT Telemedicine [facility] [address] [facility], 7th Floor, [address] [place] [address] Eva Norman MD, MPH [address] [address] [email or web address]@[facility] 09/02/2025 1:[address], [facility] - [address], [address] [place] [address] Radha Waters MD, DPHIL [address] [address] WILLIAM@[email or web address] 09/02/2025 2:00 PM EST Appointment MRI, [facility] - [address], [address] [place] [address] Radha Waters MD, DPHIL [address] [place] [address] [email or web address] 02/16/2026 11:00 AM EDT Blood Draw [facility] Center for Hematology 32 [facility], 7th Floor, [address] [place] [address] Arthur Waters MD, DPHIL [address] [place] [address] [email or web address] 02/16/2026 12:00 PM EDT Office Visit [facility] Center for Hematology 32 [facility], 7th Floor, [address] [place] [address] Arthur Waters MD, DPHIL [address] [place] [phone] [email or web address]@[email or web address] Scheduled Procedures Name Priority Associated Diagnoses Date/Ti me RADIOFREQUENCY ABLATION THYROID Autonomous thyroid nodule 06/30/2025 11:04 AM EDT documented as of this encounter Visit Diagnoses Not on filedocumented in this encounter Care Teams Oil And Gas Lease Pumper Relationship Specialty Start Date End Date Jaxson Portillo MD [address] [place] [address] [place] [address] PCP - General 03/31/14 06/16/24 Mayela Skaggs PA [address] [place] [address] [place] [address] PCP - General Physician Insurance Billing Specialist 06/17/24 documented as of this encounter Additional Source Comments The information contained in this document represents components of the legal health record. It is not the complete legal health record.[facility]
--- OUTSIDE RECORDS SUMMARY | 2025-06-27 09:06 | XMS_ITS | Encounter Summary ---
Author Organization [employer] [facility] Address [address] [place] [address] Phone Care Team Providers Care Precision Mechanical Instrument Maker Name Role Phone Mayela Skaggs Primary Care Provide r Encounter Details Date Type Department Care Team (Late st Contact Info) Description 06/17/[address] [facility] Breast [facility] [address] [facility] [address] [place] [address] Social History Tobacco Use Types Packs/Day Years [...] Procedure Pass CT, [facility] [place] [address] [facility], [address] [place] [address] 02/05/2025 Procedure Pass MRI, [facility] [place] [address] [facility], [address] [place] [address] 06/30/2025 Procedure Pass [facility] PERIOPERATIVE DEPT 55 [place] [phone] 06/30/2025 11:00 AM EDT Appointment [facility] Ultrasound, White 2 55 [facility], 2nd [place] [address] Eva Norman MD, MPH [address] [place] [address] [email or web address]@[facility] 06/30/2025 11:04 AM EDT Hospital Encounter [facility] PERIOPERATIVE DEPT [address] [place] [phone] Eva Norman MD, MPH [address] [place] [phone] [email or web address]@[facility] 06/30/2025 11:04 AM EDT Anesthesia Event [facility] PERIOPERATIVE DEPT [address] [place] [phone] Anna Marti MD [address] [place] [address] [place] [address] JOSE ALBERTO HARLEY@[facility] Regan Charles, [place] [address] [place] [phone] Reema@ [email or web address] 06/30/2025 11:04 AM EDT - 06/30/2025 12:43 PM EDT Surgery [facility] PERIOPERATIVE DEPT [address] [place] [phone] Eva Norman MD, MPH [address] [place] [phone] [email or web address]@[facility] RADIOFREQUENCY ABLATION THYROID w/ US OR guidance 07/03/2025 9:30 AM EDT Telemedicine [facility] 32 [facility], 7th Floor, [address] [place] [address] Eva Norman MD, MPH [address] [address] SUZY@[facility] 09/02/2025 1:[address], [facility] - [address], [address] [place] [address] Radha Waters MD, DPNML [address] [place] [phone] WILLIAM@[facility] 09/02/2025 2:00 PM EST Appointment MRI, [facility] - [address], [address] [place] [address] Radha Waters MD, DPNML [address] [place] [address] WILLIAM@[facility] 02/16/2026 11:00 AM EDT Blood Draw [facility] Center for Hematology 32 [facility], 7th Floor, [address] [place] [address] Arthur Waters MD, DPNML [address] [place] [address] MITESH@[facility] 02/16/2026 12:00 PM EDT Office Visit [facility] Center for Hematology 32 [facility], 7th Floor, [address] [place] [address] Arthur Waters MD, DPNML [address] [place] [phone] MITESH@[facility] Scheduled Procedures Name Priority Associated Diagnoses Date/Ti me RADIOFREQUENCY ABLATION THYROID Autonomous thyroid nodule 06/30/2025 11:04 AM EDT documented as of this encounter Visit Diagnoses Not on filedocumented in this encounter Care Teams Precision Mechanical Instrument Maker Relationship Specialty Start Date End Date Mayela Skaggs PA PCP - General Physician Medicine Assistant 06/17/24 documented as of this encounter Additional Source Comments The information contained in this document represents components of the legal health record. It is not the complete legal health record.[facility]
--- OUTSIDE RECORDS SUMMARY | 2025-06-27 09:06 | XMS_ITS | Encounter Summary ---
Author Organization [facility] Address [address] [facility] [address] [place] [address] Phone Care Team Providers Care Molasses And Caramel Operator Name Role Phone Mayela Skaggs Primary Care Provide r Reason for Referral * Outpatient Procedure - Closed Specialty Diagnoses / Procedures Referred By Armando dennis Referred To Contact Radiology Diagnoses Hyperthyroidism Procedures NM Thyroid Uptake and Scan I123 CHG THYROID UPTAKE W/BLOOD FLOW SNGLE/MULT CATHY MINDY Abdirizak Early MD Phone: tel: fax: mailto:[email or web address] Referral ID Status Reason Start Date Expiration Date Visits Re quested Visits Authorized [id number] Closed 04/13/2025 04/14/2025 2 2 Encounter Details Date Type Department Care Team (Latest Contact Info) Description 04/10/2025 Ancillary Orders [facility] Nuclear Medicine, [place] [address] [place] [address], 7th [place] [address] Abdirizak Early MD 55 [facility] [address] [place] [address] [email or web address] Hyperthyroidism (Primary Dx) Social History Tobacco Use Types Packs/Day Years [...] Contact Info) Description 02/05/[address] - [address], [address] [place] [address] 02/05/2025 Procedure Pass MRI, [facility] - [address], [address] [place] [address] 06/30/2025 Procedure Pass [facility] PERIOPERATIVE DEPT 55 [place] [phone] 06/30/2025 11:00 AM EDT Appointment [facility] Ultrasound, White 2 55 [facility], 2nd [place] [address] Eva Norman MD, MPH [address] [place] [address] [email or web address]@[facility] 06/30/2025 11:04 AM EDT Hospital Encounter [facility] PERIOPERATIVE DEPT 55 [place] [address] Eva Norman MD, MPH [address] [place] [phone] [email or web address]@[facility] 06/30/2025 11:04 AM EDT Anesthesia Event [facility] PERIOPERATIVE DEPT 55 [place] [phone] Anna Marti MD 55 [facility] [address] [place] [address] JOSERosemarie [email or web address] Regan Charles, RN [address] [place] [phone] Reema@ [facility].ed u 06/30/2025 11:04 AM EDT - 06/30/2025 12:43 PM EDT Surgery [facility] PERIOPERATIVE DEPT 55 [place] [phone] Eva Norman MD, MPH [address] [email or web address]@[email or web address] RADIOFREQUENCY ABLATION THYROID w/ US OR guidance 07/03/2025 9:30 AM EDT Telemedicine [facility] [address] [facility], 7th Floor, [address] [place] [address] Eva Norman MD, MPH [address] [address] [email or web address]@[facility] 09/02/2025 1:[address], [facility] - [address], [address] [place] [address] Radha Waters MD, DPHIL [address] [place] [phone] WILLIAM@[facility] 09/02/2025 2:00 PM EST Appointment MRI, [facility] - [address], [address] [place] [address] Radha Waters MD, DPHIL [address] [place] [address] WILLIAM@[facility] 02/16/2026 11:00 AM EDT Blood Draw [facility] Center for Hematology 32 [facility], 7th Floor, [address] [place] [address] Arthur Waters MD, [address] [address] MITESH@[facility] 02/16/2026 12:00 PM EDT Office Visit [facility] Center for Hematology [address] [place] [address], 7th Floor, [address] [place] [address] Arthur Waters MD, [address] [address] MITESH@[facility] Scheduled Procedures Name Priority Associated Diagnoses Date/Ti mi RADIOFREQUENCY ABLATION THYROID Autonomous thyroid nodule 06/30/2025 11:04 AM EDT documented as of this encounter Results * NM Thyroid Uptake and Scan I123 (04/14/2025 12:00 PM EDT) Anatomical Region Laterality Modality Neck Nuclear Medicine 04/14/2025 8:56 PM EDT Impressions 04/14/2025 9:02 PM EDT 24 hour uptake:14.5 % The image is consistent with an autonomous right upper lobe nodule. Narrative 04/14/2025 9:02 PM EDT NM THYROID UPTAKE AND SCAN I123 COMPARISON: none TECHNIQUE: 0.2 mCi I-123 Beatriz was given orally. Radioiodine uptake in the neck was measured and anterior images of the thyroid were obtained 24 hours after oral administration of radiotracer. Uptake quantification was performed. FINDINGS: The right lobe is larger than the left. There is heterogeneous radiotracer uptake with an area of focal increased .uptake in the right upper lobe, with reduced but not suppressed uptake in the left lobe and lower right lobe. 24 hour uptake:14.5 % Normal uptake at 24 hours: 10-30%. Procedure Note Nnamdi Garza MD - 04/14/2025 NM THYROID UPTAKE AND SCAN I123 COMPARISON: none TECHNIQUE: 0.2 mCi I-123 Beatriz was given orally. Radioiodine uptake in the neck wasmeasured and anterior images of the thyroid were obtained 24 hours afteroral administration of radiotracer. Uptake quantification was performed. FINDINGS: The right lobe is larger than the left. There is heterogeneous radiotraceruptake with an area of focal increased .uptake in the right upper lobe,with reduced but not suppressed uptake in the left lobe and lower rightlobe. 24 hour uptake:14.5 % Normal uptake at 24 hours: 10-30%. IMPRESSION: 24 hour uptake:14.5 % The image is consistent with an autonomous right upper lobe nodule. Abdirizak Early MD [facility]INE Final Res ult documented in this encounter Visit Diagnoses Diagnosis Hyperthyroidism- Primary Thyrotoxicosis without mention of goiter or other cause, without mention of thyrotoxic crisis or storm Hyperthyroidism Thyrotoxicosis without mention of goiter or other cause, without mention of thyrotoxic crisis or storm Autonomous thyroid nodule documented in this encounter Care Teams Molasses And Caramel Operator Relationship Specialty Start Date End Date Mayela Skaggs PA PCP - General Physician Pre K Lead Teacher 06/17/24 documented as of this encounter Additional Source Comments The information contained in this document represents components of the legal health record. It is not the complete legal health record.[facility]
--- OUTSIDE RECORDS SUMMARY | 2025-06-27 09:06 | XMS_ITS | Clinical Summary ---
Author Organization [address] [facility] Address 175 [place] [address] Phone Care Team Providers Care Commercial Insurance Underwriter Name Role Phone Mayela Skaggs Primary Care Provider [phone] Allergies Active Allergy Reactions Criticality Noted Date [...] Health Maintenance Results * COLONOSCOPY Anesthesia - [facility]; [facility] (01/14/2025 2:18 PM EDT) Anatomical Region Laterality Modality Endoscopy 01/14/2025 1:59 PM EDT Impressions 01/14/2025 2:22 PM EDT - The entire examined colon is normal on direct and retroflexion views. - No specimens collected. Recommendation: - Repeat colonoscopy in 10 years for screening purposes. Narrative 01/14/2025 2:22 PM EDT [facility] Patient Name: Babita Lorenz Procedure Date: [...] malignant neoplasm of colon CPT copyright 2020 [employer]. All rights reserved. The codes documented in this report are preliminary and upon transplant immunologist review may be revised to meet current compliance requirements. Carl Judd MD 01/14/2025 2:22:33 PM This report has been signed electronically.Carl Judd MD Number of Addenda: 0 Note Initiated On: 01/14/2025 1:59 PM Scope In: Scope Out: Endoscopy Department at [facility] - [address] [place] [phone] Procedure Note Carl Judd MD - 01/14/2025 [facility] Patient Name: Babita Lorenz Procedure Date: [...] for malignantneoplasm of colon CPT copyright 2020 [employer]. All rights reserved. The codes documented in this report are preliminary and upon transplant immunologist reviewmay be revised to meet current compliance requirements. Carl Judd MD 01/14/2025 2:22:33 PM This report has been signed electronically.Carl Judd MD Number of Addenda: 0 Note Initiated On: 01/14/2025 1:59 PM Scope In: Scope Out: Endoscopy Department at [facility] - [address] [place] [phone] IMPRESSION: - The entire examined colon is normal on direct and retroflexion views. - No specimens collected. Recommendation: - Repeat colonoscopy in 10 years for screening purposes. Hever Hinton MD GI~PROCEDURE ORDERABLES Final R esult from Last 3 Months or Most Recently Relevant to Health Maintenance Insurance Care Teams Commercial Insurance Underwriter Relationship Specialty Start Date End Date Mayela Skaggs PA [address] [place] [address] PCP - General Physician Clinic Director 10/29/24
--- OUTSIDE RECORDS SUMMARY | 2025-06-27 09:06 | XMS_ITS | Clinical Summary ---
Author Organization [facility] Address [address] [facility] [place] [address] Care Team Providers Care Lpn Cma Name Role Phone Unknown Primary Care Provider [...] Advance Directive 2022 Covid-19 Vaccine (1 - season) 2025 Influenza (Flu) vaccine (1 o f 1 - Influenza standard series) 06/01/2025 Care Teams Lpn Cma Relationship Specialty Start Date End Date Unknown None PCP - General 09/17/17
--- OUTSIDE RECORDS SUMMARY | 2025-06-27 09:06 | XMS_ITS | Encounter Summary ---
Author Organization [facility] Address [address] [place] [address] Phone Care Team Providers Care Registration Officer Name Role Phone Jaxson Portillo MD Primary Care Provider [phone] Mayela Skaggs Primary Care Provide r Encounter Details Date Type Department Care Team (Late st Contact Info) Description 01/17/2024 Procedure Pass [facility] [address] [place] [address] Social History Tobacco Use Types Packs/Day Years [...] Procedure Pass CT, [facility] [place] [address], [address] [place] [address] 02/05/2025 Procedure Pass MRI, [facility] [place] [facility] Imaging - [place] [address] [facility], [address] [place] [address] 06/30/2025 Procedure Pass [facility] PER[facility] DEPT 55 [place] [address] 06/30/2025 11:00 AM EDT Appointment [facility] Ultrasound, [place] 2 55 [facility], 2nd [place] [address] Eva Norman MD, MPH [address] [place] [address] [email or web address] 06/30/2025 11:04 AM EDT Hospital Encounter [facility] PERIOPER[facility]IVE DEPT [address] [place] [phone] Eva Norman MD, MPH [address] [place] [address] [email or web address]@[facility] 06/30/2025 11:04 AM EDT Anesthesia Event [facility] PERIOPER[facility]IVE DEPT [address] [place] [phone] Anna Marti MD [address] [place] [address] [place] [address] JOSE ALBERTO HARLEY@[facility] Regan Charles, RN [address] [place] [phone] Reema@ [email or web address] u 06/30/2025 11:04 AM EDT - 06/30/2025 12:43 PM EDT Surgery [facility] PERIOPER[facility]IVE DEPT [address] [place] [phone] Eva Norman MD, MPH [address] [place] [address] SUZY@[facility] RADIOFREQUENCY ABLATION THYROID w/ US OR guidance 07/03/2025 9:30 AM EDT Telemedicine [facility] [address] [facility], 7th Floor, [address] [place] [address] Eva Norman MD, MPH 55 [facility] [address] [place] [address] [email or web address]@[facility] 09/02/2025 1:[address], [facility] [place] [facility] Imaging - [address], [address] [place] [address] Radha Waters MD, DPHIL 55 [facility] [address] [place] [address] WILLIAM@[facility] 09/02/2025 2:00 PM EST Appointment MRI, [facility] - [address], [address] [place] [address] Radha Waters MD, DPHIL [address] [address] WILLIAM@[facility] 02/16/2026 11:00 AM EDT Blood Draw [facility] for Hematology 32 [facility], 7th Floor, [address] [place] [address] Arthur Waters MD, DPHIL [address] [address] MITESH@[facility] 02/16/2026 12:00 PM EDT Office Visit [facility] 32 [facility], 7th Floor, [address] [place] [address] Arthur Waters MD, DPHIL [address] [place] [phone] MITESH@[email or web address] Scheduled Procedures Name Priority Associated Diagnoses Date/Ti me RADIOFREQUENCY ABLATION THYROID Autonomous thyroid nodule 06/30/2025 11:04 AM EDT documented as of this encounter Visit Diagnoses Not on filedocumented in this encounter Care Teams Registration Officer Relationship Specialty Start Date End Date Jaxson Portillo MD [address] [place] [address] [place] [address] PCP - General 03/31/14 06/16/24 Mayela Skaggs PA [address] [place] [address] [place] [address] PCP - General Physician Medical Practitioners 06/17/24 documented as of this encounter Additional Source Comments The information contained in this document represents components of the legal health record. It is not the complete legal health record.[facility]
--- OUTSIDE RECORDS SUMMARY | 2025-06-27 09:06 | XMS_ITS | Encounter Summary ---
Author Organization [employer] [facility] Address [address] [place] [address] Phone Care Team Providers Care Maintenance Operator Name Role Phone Mayela Sk[place]gs Primary Care Provide r Encounter Details Date Type Department Care Team (Late st Contact Info) Description 06/17/2024 Procedure Pass [facility] MRI, [facility] 2 [address] [facility], 2nd [place] [address] Social History Tobacco Use Types Packs/Day Years [...] Procedure Pass CT, [facility] [place] [address] [facility], [address] [place] [address] 02/05/2025 Procedure Pass MRI, [facility] [place] [address] [facility], [address] [place] [address] 06/30/2025 Procedure Pass [facility] PERI[facility]IVE DEPT [address] [place] [phone] 06/30/2025 11:00 AM EDT Appointment [facility] Ultrasound, [place] 2 [address] [facility], 2nd [place] [address] Eva Norman MD, MPH [address] [place] [phone] [email or web address] 06/30/2025 11:04 AM EDT Hospital Encounter [facility] [address] [place] [phone] Eva Norman MD, MPH [address] [place] [phone] [email or web address] 06/30/2025 11:04 AM EDT Anesthesia Event [facility] [address] [place] [phone] Anna Marti MD [address] [place] [address] [place] [phone] JOSE ALBERTO HARLEY@[facility] Regan Charles, CAM[place] [address] [place] [phone] Reema@ [email or web address] 06/30/2025 11:04 AM EDT - 06/30/2025 12:43 PM EDT Surgery [facility] [address] [place] [phone] Eva Norman MD, MPH [address] [place] [phone] [email or web address] RADIOFREQUENCY ABLATION THYROID w/ US OR guidance 07/03/2025 9:30 AM EDT Telemedicine [facility] [address] [facility], 7th Floor, [address] [place] [address] Eva Norman MD, MPH [address] [phone] [email or web address] 09/02/2025 1:[address], [facility] - [address], [address] [place] [address] Radha Waters MD, DPALL [address] [place] [phone] [email or web address]@[email or web address] 09/02/2025 2:00 PM EST Appointment MRI, [facility] - [address], [address] [place] [address] Radha Waters MD, DPALL [address] [place] [phone] [email or web address] 02/16/2026 11:00 AM EDT Blood Draw [facility] [address] [facility], 7th Floor, [address] [place] [address] Arthur Waters MD, DPALL [address] [place] [phone] [email or web address] 02/16/2026 12:00 PM EDT Office Visit [facility] [address] [facility], 7th Floor, [address] [place] [address] Arthur Waters MD, DPALL [address] [place] [phone] [email or web address] Scheduled Procedures Name Priority Associated Diagnoses Date/Ti me RADIOFREQUENCY ABLATION THYROID Autonomous thyroid nodule 06/30/2025 11:04 AM EDT documented as of this encounter Visit Diagnoses Not on filedocumented in this encounter Care Teams Maintenance Operator Relationship Specialty Start Date End Date Mayela Skaggs PA PCP - General Physician [place] 06/17/24 documented as of this encounter Additional Source Comments The information contained in this document represents components of the legal health record. It is not the complete legal health record.[facility]
--- OUTSIDE RECORDS SUMMARY | 2025-06-27 09:06 | XMS_ITS | Encounter Summary ---
Author Organization [facility] Address [address] [place] [address] Phone Care Team Providers Care Electric Motor Repairman Name Role Phone Jaxson Portillo MD Primary Care Provider [phone] Mayela Skaggs Primary Care Provide r Encounter Details Date Type Department Care Team (Late st Contact Info) Description 12/20/2023 Procedure Pass [facility], [facility] - [address], [address] [place] [address] Social History Tobacco Use Types Packs/Day Years [...] Procedure Pass CT, [facility] [place] [address] [facility], [address] [place] [address] 02/05/2025 Procedure Pass MRI, [facility] [place] [address] [facility], [address] [place] [address] 06/30/2025 Procedure Pass [facility]PT 55 [place] [phone] 06/30/2025 11:00 AM EDT Appointment [facility] Ultrasound, White 2 55 [facility], 2nd [place] [address] Eva Norman MD, MPH [address] [place] [phone] [email or web address] 06/30/2025 11:04 AM EDT Hospital Encounter [facility] [address] [place] [phone] Eva Norman MD, MPH [address] [place] [phone] [email or web address] 06/30/2025 11:04 AM EDT Anesthesia Event [facility] [address] [place] [phone] Anna Marti MD [address] [place] [address] [address] [place] [address] JOSE ALBERTO HARLEY@[email or web address] Regan Charles, RN [address] [place] [phone] Reema@ [email or web address] 06/30/2025 11:04 AM EDT - 06/30/2025 12:43 PM EDT Surgery [facility] [address] [place] [phone] Eva Norman MD, MPH [address] [place] [phone] [email or web address]@[facility] RADIOFREQUENCY ABLATION THYROID w/ US OR guidance 07/03/2025 9:30 AM EDT Telemedicine [facility] [address] [facility], 7th Floor, [address] [place] [address] Eva Norman MD, MPH [address] [phone] [email or web address]@[facility] 09/02/2025 1:[address], [facility] - [address], [address] [place] [address] Radha Waters MD, DPHIL [address] [facility] [address] [place] [address] [email or web address] 09/02/2025 2:00 PM EST Appointment MRI, [facility] - [address], [address] [place] [address] Radha Waters MD, DPHIL [address] [phone] [email or web address] 02/16/2026 11:00 AM EDT Blood Draw [facility] [address] [facility], 7th Floor, [address] [place] [address] Arthur Waters MD, DPHIL [address] [phone] [email or web address] 02/16/2026 12:00 PM EDT Office Visit [facility] [address] [facility], 7th Floor, [address] [place] [address] Arthur Waters MD, DPHIL [address] [place] [phone] [email or web address] Scheduled Procedures Name Priority Associated Diagnoses Date/Ti me RADIOFREQUENCY ABLATION THYROID Autonomous thyroid nodule 06/30/2025 11:04 AM EDT documented as of this encounter Visit Diagnoses Not on filedocumented in this encounter Care Teams Electric Motor Repairman Relationship Specialty Start Date End Date Jaxson Portillo MD [address] [place] [address] [place] [address] PCP - General 03/31/14 06/16/24 Mayela Skaggs PA [address] [place] [address] [place] [address] PCP - General Physician Cloth Grader 06/17/24 documented as of this encounter Additional Source Comments The information contained in this document represents components of the legal health record. It is not the complete legal health record.[facility]
--- OUTSIDE RECORDS SUMMARY | 2025-06-27 09:06 | XMS_ITS | Clinical Summary ---
Author Organization [employer] [facility] Address [address] [place] [phone] Phone Care Team Providers Care Armhole Sewer Name Role Phone Mayela Skaggs Primary Care Provide r Allergies Active Allergy Reactions Criticality Noted Date Comments Latex Rash,Other (See Comments) 05/15/2013 hives Medications fexofenadine (ALBIN) 60 MG tablet Take 60 mg by mouth 2 (two) times a day as needed. Active multivit-mineral s/folic acid (CENTRUM ADULTS ORAL) Take 1 tablet by mouth every other day. Active cholecalciferol (VITAMIN D3) 2,000 unit capsule Take 2,000 Units by mouth daily. Active FLUoxetine (PROZAC) 20 MG capsule Take 20 mg by mouth daily. 05/28/2024 Active EPINEPHrine 0.3 mg/0.3 mL auto-injector Inject into the muscle once as needed. 05/16/2024 Active Active Problems Problem Noted Date Diagnosed Date Breast cancer 02/18/2014 Overview (11/21/2014): Malignant tumor of breast Uncoded Breast cancer dx'ed 2000 03/07/2011 Overview (11/21/2014): Breast cancer dx'ed 1999 Migraine 03/07/2011 Overview (11/21/2014): Migraines Uncoded Hemachromatosisdx'ed 1998 03/07/2011 Overview (11/21/2014): Hemachromatosisdx'ed 1997 Uncoded Endometrial polyps s/p ablation 03/07/20 11 Overview (11/21/2014): Endometrial polyps s/p ablation Anxiety 03/07/2011 Overview (11/21/2014): Anxiety Herpes 03/07/2011 Overview (11/21/2014): Herpes Thyroid nodule 03/07/2011 Overview (11/21/2014): Thyroid nodule Uncoded Coccyx fracture 200803/07/2011 Overview (11/21/2014): Coccyx fracture 2008 Uncoded Abd Trauma s/p fall fr horse 2009 Overview (11/21/2014): Abd Trauma s/p fall fr horse 2009 Vitamin D deficiency 03/07/2011 Overview (11/21/2014): Vitamin D deficiency Uncoded H/O abnormal pap smear 200803/07/2011 Overview (11/21/2014): H/O abnormal pap smear 2008 Encounters Date Type Department Care Team Description 06/26/2025 Telephone [facility] [address] [facility], [address] [place] [address] Eva Norman MD, MPH 06/10/2025 7:30 AM EDT Pre-Admission Testing [facility] Pre-Procedure Evaluation Department [place] [phone] Eva Norman MD, MPH 05/25/2025 Orders Only [facility] [address] [facility], [address] [place] [address] Eva Norman MD, MPH Preop examination (Primary Dx) 05/20/2025 Telephone [facility] [address] [facility], [address] [place] [address] Eva Norman MD, MPH 05/15/2025 12:00 PM EDT Telemedicine [facility] [address] [facility], [address] [place] [address] Eva Norman MD, MPH Subclinical hyperthyroidism (Primary Dx) 05/15/2025 Orders Only [facility] [address] [place] [address], 7th [facility], [address] [place] [id number] Eva Norman MD, MPH Preop examination (Primary Dx) 04/27/2025 Telephone [facility] [address] [place] [address], [address] [place] [address] Abdirizak Early MD 04/24/2025 Telephone [facility] [address] [place] [address], [address] [place] [address] Abdirizak Early MD 04/14/2025 3:30 PM EDT Office Visit [facility] [address] [place] [address], [address] [place] [address], [address] [place] [phone] Arthur Waters MD, DPHIL Hereditary hemochromatosis (Primary Dx) 04/14/2025 11:28 AM EDT - 04/14/2025 11:59 PM EDT Hospital Encounter [facility] Nuclear Medicine, [place] [address] [facility], [address] [place] [address] Abdirizak Early MD Discharge Disposition: Home or Self Care 04/14/2025 11:05 AM EDT - 04/14/2025 11:27 AM EDT Hospital Encounter [facility] GRAJEDA/Scan Lab [address] [place] [address], [address] [place] [address] Abdirizak Early MD Discharge Disposition: Home or Self Care 04/14/2025 Telephone [facility] [address] [place] [address], 7th Floor, [address] [place] [address] Arthur Waters MD, DPHIL 04/13/2025 11:45 AM EDT - 04/13/2025 11:59 PM EDT Hospital Encounter [facility] [address] [facility], 7th [place] [address] Abdirizak Early MD Discharge Disposition: Home or Self Care 04/13/2025 11:23 AM EDT - 04/13/2025 11:44 AM EDT Hospital Encounter [facility] [address] [facility] [place] [address] Abdirizak Early MD Discharge Disposition: Home or Self Care 04/10/2025 Ancillary Orders [place] [address] [address] [facility], 7th [place] [address] Abdirizak Early MD Hyperthyroidism (Primary Dx) 04/07/2025 Orders Only [facility] [address], [address] [place] [address] Abdirizak Early MD from Last 3 Months Immunizations Immunization Administration Dates Next Due INFLUENZA, SPLIT VIRUS, TRIVALENT PF 06/19/2013 Family History Medical History Relation Comments Thyroid cancer Maternal Cousin Breast cancer Mother BRCA 1/2 Sister Relation Status Comments Maternal Cousin Alive Mother Sister Social History Tobacco Use Types Packs/Day Years Used Date Smoking Tobacco: Never Smokeless Tobacco: Never Tobacco Cessation:Counseling Given: Not Answered Alcohol Use Standard Drinks/Week Comments Not Currently [...] on file Sexual Orientation Not on file Last Filed Vital Signs Vital Sign Reading Time Taken Comments Blood Pressure 104/67 04/14/2025 3:15 PM EDT Pulse 79 04/14/2025 3:15 PM EDT Temperature 35.9 C (96.7 F) 04/14/2025 3:15 PM EDT Respiratory Rate 16 04/14/2025 3:15 PM EDT Oxygen Saturation 97% 04/14/2025 3:15 PM EDT Inhaled Oxygen Concentration - - Weight 56.7 kg (125 lb) 06/10/2025 7:39 AM EDT Height 167.6 cm (5' 6 ) 06/10/2025 7:39 AM EDT Body Mass Index 20.18 06/10/2025 7:39 AM EDT Plan of Treatment Upcoming Encounters Date Type Department Care Team (Latest Contact Info) Description 02/05/[address], [facility] General Imaging - [address], [address] [place] [address] 02/05/2025 Procedure Pass MRI, [facility] General Imaging - [address], [address] [place] [address] 06/30/2025 Procedure Pass [facility] PERIOPERATIVE DEPT [address] [place] [phone] 06/30/2025 11:00 AM EDT Appointment [facility] Ultrasound, [place] [address] [facility], 2nd [place] [address] Eva Norman MD, MPH [address] [place] [address] [email or web address] 06/30/2025 11:04 AM EDT Hospital Encounter [facility] PERIOPERATIVE DEPT [address] [place] [phone] Eva Norman MD, MPH [address] [place] [phone] [email or web address] 06/30/2025 11:04 AM EDT Anesthesia Event [facility] PERIOPERATIVE DEPT [address] [place] [address] Anna Marti MD [address] [facility] [address] [place] [address] [email or web address] [email or web address] Regan Charles, RN [address] [place] [address] [email or web address] 06/30/2025 11:04 AM EDT - 06/30/2025 12:43 PM EDT Surgery [facility] PERIOPERATIVE DEPT [address] [place] [phone] Eva Norman MD, MPH [address] [email or web address] RADIOFREQUENCY ABLATION THYROID w/ US OR guidance 07/03/2025 9:30 AM EDT Telemedicine [facility] [address] [facility], [address] [place] [address] Eva Norman MD, MPH [address] [address] [email or web address] 09/02/2025 1:[address], [facility] General Imaging - [address], [address] [place] [address] Radha Waters MD, DPPRL [address] [place] [phone] [email or web address] 09/02/2025 2:00 PM EST Appointment MRI, [facility] Imaging - [address], [address] [place] [address] Radha Waters MD, DPHIL [address] [place] [phone] [email or web address] 02/16/2026 11:00 AM EDT Blood Draw [facility] [address] [facility], [address] [place] [address] Arthur Waters MD, DPPRL [address] [address] [email or web address] 02/16/2026 12:00 PM EDT Office Visit [facility] [address] [facility], [address], [address] [place] [address] Arthur Waters MD, DPPRL [address] [address] [email or web address] Scheduled Procedures Name Priority Associated Diagnoses Date/Ti me RADIOFREQUENCY ABLATION THYROID Autonomous thyroid nodule 06/30/2025 11:04 AM EDT Health Maintenance Due Date Last Done Comments LIPID PANEL 1967 DEPRESSION SCREENING 1979 HEPATITIS C SCREENING 1985 PNEUMOCOCCAL VACCINES (50+ years) (1 of 2 - PCV) 1986 COLOGUARD 2012 COLONOSCOPY 2012 COLORECTAL CANCER SCREENING 2012 FIT TEST 2012 FOBT 2012 SIGMOIDOSCOPY 2012 VIRTUAL COLONOSCOPY 2012 PAP SMEAR 05/15/2016 05/15/2013, 05/03/2011, 05/24/2009, Additional history exists ZOSTER VACCINES (2 of 2) 09/20/2021 07/26/2021 INFLUENZA VACCINE (#1) 2025 , 06/27/2022, 07/05/2021, Additional history exists COVID-19 VACCINE (2 - 2024- season) 2025 01/11/2021 MAMMOGRAM 08/26/2026 08/26/2024, 08/03, 09/15/2011, Additional history exists Adult Td,Tdap Booster 01/15/2029 01/15/2019 HIV ONE-TIME SCREENING (18-65 YEARS) Completed 05/15/2013, 05/24/2009 SMOKING STATUS SCREENING (Once After 26 Yrs) Completed 06/10/2025 HEPATITIS A VACCINES Aged Out No long er eligible based on patient's age to complete this topic HIB VACCINES Aged Out No longer eligi ble based on patient's age to complete this topic MENINGOCOCCAL VACCINES (ACWY) Aged Out No longer eligible based on patient's age to complete this topic MENINGOCOCCAL VACCINES (B) Aged Out N o longer eligible based on patient's age to complete this topic Medical Devices Implanted Type Area Auto Mechanics Teacher Device Identifier Shelf Expiration Date Model / Serial / Lot Breast Breast Bilateral: Breast Clip Clip Right: Breast Mesh Mesh Abdomen Procedures Procedure Name Priority Date/Time Associated Diagnosis Comments IRON AND IRON BINDING CAPACITY Routine 04/14/2025 2:01 PM EDT LAB ADD ON Routine 04/14/2025 2:01 PM EDT Hereditary hemochromatosis THYROID MONITORING PANEL Routine 04/14/2025 2:01 PM EDT Hereditary hemochromatosis AFP (NON-MATERNAL SPECIMENS) Routine 04/14/2025 2:01 PM EDT Hereditary hemochromatosis LDH Routine 04/14/2025 2:01 PM EDT Hereditary hemochromatosis COMPREHENSIVE METABOLIC PANEL Routine 04/14/2025 2:01 PM EDT Hereditary hemochromatosis SPECIAL SLIDE BOX Routine 04/14/2025 2:0 1 PM EDT Hereditary hemochromatosis SEDIMENTATION RATE (ESR) Routine 04/14/2025 2:01 PM EDT Hereditary hemochromatosis RETICULOCYTES Routine 04/14/2025 2:01 PM EDT Hereditary hemochromatosis CBC AND DIFFERENTIAL Routine 04/14/2025 2:01 PM EDT Hereditary hemochromatosis NM THYROID UPTAKE AND SCAN I123 Routine 04/14/2025 12:00 PM EDT Hyperthyroidism TSH Routine 04/13/2025 11:49 AM EDT Thyroid nodule T3, TOTAL Routine 04/13/2025 11:49 AM EDT Thyroid nodule Subclinical hyperthyroidism FREE T4 Routine 04/13/2025 11:49 AM EDT Thyroid nodule OUTSIDE LAB Routine 04/07/2025 3:48 PM EDT BI MRI BREAST WITH AND WITHOUT CONTRAST (BILATERAL) Routine 08/26/2024 2:00 PM EST Malignant neoplasm of right breast in female, estrogen receptor negative, unspecified site of breast PAP TEST Routine 05/15/2013 12:00 AM EDT from Last 3 Months or Most Recently Relevant to Health Maintenance Results * (ABNORMAL) Thyroid monitoring panel (04/14/2025 2:01 PM EDT) MONITORING LT4: TSH 0.09(L) 0.40 - 5.00 uIU/mL [facility] 04/14/2025 2:01 PM EDT 04/14/2025 2:12 PM EDT us Arthur Wtaers MD, DPPRL LAB BLOOD ORDERABLES Final Result Performing Organization Address [facility] Co de Phone Number [address] [address] * Special slide box (04/14/2025 2:01 PM EDT) SPECIAL SLIDE BOX Slide in [facility] 04/14/2025 2:01 PM EDT 04/14/2025 2:12 PM EDT us Arthur Waters MD, DPPRL LAB BLOOD ORDERABLES Final Result Performing Organization Address City/[facility] Co de Phone Number [address] [address] * Reticulocytes (04/14/2025 2:01 PM EDT) RETIC 1.7 0.7 - 2.5 % [facility] 04/14/2025 2:01 PM EDT 04/14/2025 2:12 PM EDT Arthur Waters MD, DPPRL LAB BLOOD ORDERABLES Final Result Performing Organization Address [facility] Co de Phone Number [address] [address] * LDH (04/14/2025 2:01 PM EDT) LDH 174 110 - 210 U/L [facility] 04/14/2025 2:01 PM EDT 04/14/2025 2:12 PM EDT Arthur Waters MD, DPPRL LAB BLOOD ORDERABLES Final Result Performing Organization Address [facility] Co de Phone Number [address] [phone] * Comprehensive metabolic panel (04/14/2025 2:01 PM EDT) SODIUM 137 135 - 145 mmol/L [facility] POTASSIUM 4.1 3.4 - 5.0 mmol/L [facility] CHLORIDE 100 98 - 108 mmol/L [facility] CO2 25 23 - 32 mmol/L [facility] BUN 8 8 - 25 mg/dL [facility] CREATININE 0.61 0.50 - 1.00 mg/dL [facility] GLUCOSE 87 70 - 110 mg/dL [facility] ALBUMIN 4.5 3.3 - 5.0 g/dL [facility] TOTAL PROTEIN 7.0 6.0 - 8.3 g/dL [facility] CALCIUM 8.9 8.5 - 10.5 mg/dL [facility] ALKALINE PHOSPHATASE 87 30 - 100 U/L [facility] TOTAL BILIRUBIN 0.5 0.0 - 1.0 mg/dL [facility] AST 22 9 - 32 U/L [facility] ALT 14 7 - 33 U/L [facility] GLOBULIN 2.5 1.9 - 4.1 g/dL [facility] EGFR 104 >59 mL/min/1. 73m2 [facility] Comment:Estimated glomerular filtration rate calculated using the CKD-EPI refit equation. ANION GAP 12 3 - 17 mmol/L [facility] 04/14/2025 2:01 PM EDT 04/14/2025 2:12 PM EDT Result [facility] Arthur Waters MD, PRIMITIVOPRL LAB BLOOD ORDERABLES Final Result Performing Organization Address City/[facility]/ZIP Co de Phone Number [address] [address] * (ABNORMAL) Iron and iron binding capacity (04/14/2025 2:01 PM EDT) IRON 155 30 - 160 ug/dL [facility] IRON BINDING CAPACITY 282 230 - 404 ug/dL [facility] TRANSFERRIN SATURAT. 55(H) 14 - 50 % [facility] 04/14/2025 2:01 PM EDT 04/14/2025 4:34 PM EDT Result [facility] Arthur Waters MD, PRIMITIVOPRShana LAB BLOOD ORDERABLES Final Result Performing Organization Address [facility] Co de Phone Number [address] [address] * AFP (non-maternal specimens) (04/14/2025 2:01 PM EDT) Pathologist [facility] AFP (NON-MATERNAL) <1.8 <7.9 ng/mL [facility] Comment: Note: Reference interval does not apply to newborns where very high levels are expected. Range for newborns is not available. This assay is performed on the Anel Joseph 8000. Values obtained with different assay methods or kits cannot be used interchangably. The use of AFP as a tumor marker is not recommended in females. Serum levels of AFP, regardless of levels, should not be interpreted as absolute evidence of the presence or absence of disease. AFP is not intended for use as a cancer-screening test. 04/14/2025 2:01 PM EDT 04/14/2025 2:12 PM EDT Result [facility] Arthur Waters MD, DPHIL LAB BLOOD ORDERABLES Final Result [address] [address] * Sedimentation rate (ESR) (04/14/2025 2:01 PM EDT) ESR 15 0 - 29 mm/h [facility] 04/14/2025 2:01 PM EDT 04/14/2025 2:12 PM EDT Arthur Waters MD, DPHIL LAB BLOOD ORDERABLES Final Result Performing Organization Address [facility] Co de Phone Number [address] [address] * (ABNORMAL) CBC and differential (04/14/2025 2:01 PM EDT) WBC 9.78 4.00 - 11.00 K/uL [facility] RBC 4.14 4.00 - 5.20 M/uL [facility] HGB 12.9 12.0 - 16.0 g/dL [facility] HCT 38.0 36.0 - 46.0 % [facility] PLT 293 150 - 450 K/uL [facility] MCV 91.8 80.0 - 100.0 fL [facility] MCH 31.2(H) 27.0 - 31.0 pg [facility] MCHC 33.9 32.0 - 36.0 g/dL [facility] RDW 12.0 11.5 - 14.5 % [facility] MPV 9.0 8.4 - 12.0 fL [facility] NRBC 0.00 0.00 /100 WBCs [facility] ABSOLUTE NRBC 0.00 0.00 K/uL [facility] DIFF METHOD Manual [facility] TOTAL CELLS COUNTED 114 [facility] NEUTS 70.1 48.0 - 76.0 % [facility] LYMPHS 24.6 18.0 - 41.0 % [facility] MONOS 3.5(L) 4.0 - 11.0 % [facility] EOS 0.9 0.0 - 5.0 % [facility] PLASMA CELL 0.9(H) 0 % [facility] ABSOLUTE NEUTS 6.86 1.92 - 7.60 K/uL [facility] ABSOLUTE LYMPHS 2.41 0.72 - 4.10 K/uL [facility] ABSOLUTE MONOS 0.34 0.16 - 1.10 K/uL [facility] ABSOLUTE EOS 0.09 0.00 - 0.50 K/uL [facility] ABSOLUTE PLASMA CELLS 0.09(H) 0.0 K/uL [facility] Blood 04/14/2025 2:01 PM EDT 04/14/2025 2:12 PM EDT Arthur Waters MD, DPPRL LAB BLOOD ORDERABLES Final Result Performing Organization Address [facility]/ZIP Co de Phone Number [address] [phone] * Lab Add On: fe, tibcv, ferritin (04/14/2025 2:01 PM EDT) TEST REQUESTED FE, TIBCV, FERRITIN [facility] Comments (Chemistry) Able to add on some tests but not all [facility] Comment: Sample is not suitable for testing due to stability. FOR FERRITIN 04/14/2025 2:01 PM EDT 04/14/2025 4:34 PM EDT Arthur Waters MD, DPPRL LAB BLOOD ORDERABLES Final Result Performing Organization Address [facility] Co de Phone Number [address] [phone] * NM Thyroid Uptake and Scan I123 [...] right upper lobe nodule. Abdirizak Early MD [facility] [place] ENDOCRINE Final Res ult * T3, Total (04/13/2025 11:49 AM EDT) TOTAL T3 123 60 - 181 ng/dL [facility] 04/13/2025 11:4 9 AM EDT 04/13/2025 4:05 PM EDT Abdirizak Early MD LAB BLOOD ORDERABLES Final Result [address] [address] * (ABNORMAL) TSH (04/13/2025 11:49 AM EDT) TSH 0.10(L) 0.40 - 5.00 uIU/mL [facility] 04/13/2025 11:4 9 AM EDT 04/13/2025 4:05 PM EDT Abdirizak Early MD LAB BLOOD ORDERABLES Final Result [facility] [address] [place] [address] * Free T4 (04/13/2025 11:49 AM EDT) FREE T4 0.9 0.9 - 1.8 ng/dL [facility] 04/13/2025 11:4 9 AM EDT 04/13/2025 4:05 PM EDT us Abdirizak Early MD LAB BLOOD ORDERABLES Final Result Performing Organization Address [facility] Co de Phone Number [facility] [address] [place] [address] * Outside Lab (04/07/2025 3:48 PM EDT) us Abdirizak Early MD LAB BLOOD ORDERABLES Final Result * BI MRI BREAST WITH AND WITHOUT CONTRAST (BILATERAL) (08/26/2024 2:00 PM EST) Anatomical Region Laterality Modality Breast Left, Breast Right, Breast Bilateral Bila teral Magnetic Resonance 08/26/2024 3:06 PM EST Impressions 08/26/2024 6:31 PM EST No MRI evidence of malignancy in the left breast and reconstructed right breast. BI-RADS 2 BENIGN Please note that mammography offers complementary information to MRI and certain findings may be visible primarily on mammography. The patient should keep all scheduled mammography appointments and continue annual screening mammography. ATTESTATION: I, Dr. Jeffrey Mcdonnell as teaching physician, have reviewed the images for this case and if necessary edited the report originally created by Dr. Melani Bryant. Narrative 08/26/2024 6:31 PM EST BI MRI BREAST WITH AND WITHOUT CONTRAST (BILATERAL) Additional patient information: 59 year old patient with BRCA2 mutation and history of right breast cancer status post right mastectomy with TRAM flap reconstruction and bilateral implants in 2000. High risk screening. TECHNIQUE: MR imaging of the breasts was performed using T1, T2 and fat- saturated techniques. Dynamic multiphase imaging was also performed after administration of intravenous gadolinium contrast agent. Computer generated 3D reconstruction and enhancement kinetic analysis was utilized by the radiologist in the interpretation of this examination. COMPARISON: Comparison is made with relevant prior imaging. Breast composition: Heterogeneous fibroglandular tissue. Background parenchymal enhancement: Minimal. FINDINGS: Right Status post right mastectomy and right axillary lymph node dissection saline implant reconstruction.. The implant is intact. There are no suspicious masses or areas of abnormal non-mass enhancement in the reconstructed right breast. There is no axillary or internal mammary lymphadenopathy on the right. Left Intact saline implant. There are no suspicious masses or areas of abnormal non-mass enhancement in the left breast. There is no axillary or internal mammary lymphadenopathy on the left. Other No incidental or abnormal findings. Procedure Note Jeffrey Mcdonnell MD - 08/26/2024 BI MRI BREAST WITH AND WITHOUT CONTRAST (BILATERAL) Additional patient information: 59 year old patient with BRCA2 mutationand history of right breast cancer status post right mastectomy with TRAMflap reconstruction and bilateral implants in 2000. High risk screening. TECHNIQUE: MR imaging of the breasts was performed using T1, T2 andfat-saturated techniques. Dynamic multiphase imaging was also performedafter administration of intravenous gadolinium contrast agent. Computergenerated 3D reconstruction and enhancement kinetic analysis was utilizedby the radiologist in the interpretation of this examination. COMPARISON: Comparison is made with relevant prior imaging. Breast composition: Heterogeneous fibroglandular tissue. Background parenchymal enhancement: Minimal. FINDINGS: Right Status post right mastectomy and right axillary lymph node dissectionsaline implant reconstruction.. The implant is intact. There are no suspicious masses or areas of abnormal non-mass enhancementin the reconstructed right breast. There is no axillary or internal mammary lymphadenopathy on the right. Left Intact saline implant. There are no suspicious masses or areas of abnormal non-mass enhancementin the left breast. There is no axillary or internal mammary lymphadenopathy on the left. Other No incidental or abnormal findings. IMPRESSION: No MRI evidence of malignancy in the left breast and reconstructed rightbreast. BI-RADS 2 BENIGN Please note that mammography offers complementary information to MRI andcertain findings may be visible primarily on mammography. The patientshould keep all scheduled mammography appointments and continue annualscreening mammography. ATTESTATION: I, Dr. Jeffrey Mcdonnell as teaching physician, have reviewedthe images for this case and if necessary edited the report originallycreated by Dr. Melani Bryant. us Radha Waters MD, DPHIL IMG MR BREAST Final Resu lt * Pap Smear (05/15/2013 12:00 AM EDT) 05/15/2013 Narrative [facility] - 05/28/2013 10:44 AM EDT Accession Number: [id number] Report Status: Final Type: Cytology Cytology Report: [id number] [place] [address] CLINICAL SECRETARY Cytology Report Patient Name: BABITA LORENZ : 1965 (Age: 48) Sex: F Institution: [facility] Location: [facility] Outpatient Date of Collection: 05/15/2013 Date of Reported: 05/28/2013 10:44 Results to: Elsy King MD, FINAL DIAGNOSIS A. CERVICAL, LIQUID BASED SPECIMEN: SPECIMEN ADEQUACY: Satisfactory for evaluation. INTERPRETATION: NEGATIVE FOR INTRAEPITHELIAL LESION OR MALIGNANCY. ADDITIONAL INFORMATION: This specimen was prescreened using the [employer] System. Electronically Signed Out By: RUBEN Oscar(ASCP) Cervical cytology is a screening test primarily for squamous cancers and precursors and has associated false-negative and false-positive results. New technologies such as liquid-based preparations may decrease but will not eliminate all false-negative results. Regular sampling and follow-up of unexplained clinical signs and symptoms are recommended to minimize false negative results. CLINICAL HISTORY Date of Last Menstrual Period: Menstrual History: SPECIMEN SOURCE A: CERVICAL, LIQUID BASED SPECIMEN Specimen: CERVICAL, LIQUID BASED SPECIMEN Elsy King MD, MPH CYTOLOGY ORDERAB LES Final Result [facility] [address] [place] [address], [facility] from Last 3 Months or Most Recently Relevant to Health Maintenance Insurance [facility] PPO EPO PPO EPO PPO EPO PPO EPO PPO EPO PPO EPO Care Teams Armhole Sewer Relationship Specialty Start Date End Date Mayela Skaggs PA PCP - General Physician Plant [employer] 06/17/24 Additional Source Comments The information contained in this document represents components of the legal health record. It is not the complete legal health record.[facility]
[2025-06-27 11:12] LABS: MANUAL DIFF FLAG NO
[2025-06-27 11:14] LABS: Hematocrit 37.9 % (37.0-47.0); Hemoglobin 12.7 g/dl (12.0-16.0); Imm Gran Abs Auto 0.01 X10*3/uL (0.00-0.03); Imm Gran Pct Auto 0.2 % (0.0-0.4); Lymphocytes Absolute Auto 1.4 X10*3/uL (1.2-4.9); Mean Corpuscular HGB Conc 33.5 g/dl (31.0-35.0); Mean Corpuscular Hemoglobin 30.9 pg (27.0-33.0); Mean Corpuscular Volume 92.2 fL (80.0-98.0); NRBC Abs Auto 0.000 X10*3/uL (0.0-0.012); NRBC Pct Auto 0.0 /100WBC (0.0-0.2); Platelet Count 308 X10*3/uL (160-400); Red Blood Count 4.11 X10*6/uL (4.20-5.50); White Blood Count 5.6 X10*3/uL (4.8-10.8)
[2025-06-27 11:46] LABS: Alanine Aminotransferase 22 U/L (0-31); Aspartate Amino Transferase 26 U/L (5-31); Iron 99 mcg/dL (30-160); Percent Iron Saturation 44 % (15-50); Total Iron Binding Capacity 227 mcg/dL (228-428); Unsaturated Iron Binding 128 ug/dL
[2025-06-27 11:49] LABS: Ferritin 29 ng/mL (10-250)
== END 2025-06-27 09:03 | disposition home or self-care (01) ==
LOC: HO.HMGCLDS 09:02
PROVIDERS: PCP Physician Assistant Medical; Visit Provider Physician Assistant Medical
DX: E83.110 Hereditary hemochromatosis (principal)
CPT/HCPCS: 36415; 82728; 83540; 84450; 84460; 85025